=== PATIENT | female | born 1965 | race Caucasian/White ===

== ENCOUNTER 2018-01-17 22:13 | Inpatient (IN) | payer OTHER ==
[~2018-01-17] VITALS: Ht 165.1 cm; Wt 68.5 kg
--- NOTE | 2018-01-17 22:39 | ED AMS/SEIZURE/WEAK/DIZZY ---
History of Present Illness General Chief Complaint: Altered Mental Status Stated Complaint: BIBA FOR AMS, HIGH BP Source: patient, family, EMS Exam Limitations: clinical condition Vital Signs & Intake/Output Vital Signs & Intake/Output Vital Signs Date Time Temp Pulse Resp B/P B/P Pulse O2 O2 Flow FiO2 Mean Ox Delivery Rate 01/18 0132 100.6 86 18 164/70 98 Nasal 1.0L Cannula 01/18 0019 100.5 01/17 2319 95 18 180/68 97 Nasal 3.0L Cannula 01/17 2311 96 Nasal 3.0L Cannula 01/17 2310 99.4 01/17 2216 100.6 101 18 199/87 95 Room Air ED Intake and Output 01/18 0000 01/17 1200 Intake Total 1000 Output Total Balance 1000 Intake, IV 1000 Patient 155 lb Weight Weight Estimated Measurement Method Allergies Coded Allergies: No Known Allergies (01/17/18) Reconcile Medications Aspirin (Ecotrin*) 81 MG TABLET.DR 1 TAB PO DAILY HEART/BLOOD (Reported) Cephalexin 500 MG CAPSULE 1 CAP PO 4 TIMES/DAY ABX (Reported) Diltiazem HCl (Diltiazem 24HR ER) 180 MG CAP.ER.24H 2 CAP PO DAILY HEART/BP ( Reported) Furosemide (Lasix) 80 MG TABLET 1 TAB PO MONWEDFRISUN DIURETIC (Reported) Gabapentin (Neurontin) 100 MG CAPSULE 1 CAP PO BID NERVE PAIN (Reported) Hydralazine HCl 25 MG TABLET 1 TAB PO BID BP (Reported) Insulin Glulisine (Apidra Solostar) 100 UNIT/ML INSULN.PEN 70 UNITS SC DAILY DM (Reported) Losartan Potassium (Cozaar) 50 MG TABLET 1 TAB PO BID BP (Reported) Pantoprazole Sodium (Protonix) 40 MG TABLET.DR 1 TAB PO DAILY GI (Reported) Vit B Cmplx 3/FA/Vit C/Biotin (Rn X Ray-[place] Rx Tablet) 1 MG-60 MG-300 MCG TABLET 1 TAB PO DAILY SUPPLEMENT (Reported) Triage Nurses Notes Reviewed? yes Unable To Obtain Hx Due To: patient confusion Onset: Gradual Duration: day(s): (1-2), changing over time, continues in ED, getting worse Timing: single episode today Injury Environment: home Severity: moderate, severe No Modifying Factors: none LMP (ages 10-50): unknown : No Patient currently breastfeeds: No HPI: 52-year-old female past medical history of end-stage renal disease on dialysis, insulin-dependent diabetes, peripheral vascular disease, hypertension brought in by parents for evaluation of altered mental status. EMS reports that they were called to the patient's house earlier today for hyperglycemia. Patient refused transport. At that time she was awake and alert. They were called back later today for this current called and patient was found to be very altered. She was agitated and combative. She was medicated with 5 mg of IM Versed and is now sedated. EMS reports blood sugar readings greater than 500. He also reports that patient feels warm and smells of sugar. 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 Family states that patient had not been complaining of any pain today but did have multipel episodes of vomiting. no diarrhea ro abdominal pain. They state that she does not drink or use any drugs. She was dialyzed on . no fever or sick conatcts. (Lefty Roberts) Past History Travel History Traveled to [place] past 21 day No Medical History Any Pertinent Medical History? see below for history Cardiovascular: hypertension Renal: ESRD on HD Endocrine: diabetes Surgical History Surgical History: left bka Family History Hx Contributory? No (Lefty Roberts) Review of Systems Review of Systems Constitutional: Reports: fever. EENTM: Reports: no symptoms. Respiratory: Reports: no symptoms. Cardiovascular: Reports: no symptoms. GI: Reports: no symptoms. Genitourinary: Reports: no symptoms. Musculoskeletal: Reports: no symptoms. Skin: Reports: no symptoms. Neurological/Psychological: Reports: see HPI. Hematologic/Endocrine: Reports: no symptoms. Immunologic/Allergic: Reports: no symptoms. All Other Systems: Reviewed and Negative (Lefty Roberts) Physical Exam Physical Exam General Appearance: well developed/nourished, no apparent distress, sedated, lethargic, RESPONSIVE TO PAINFUL STIMULI Head: atraumatic, normal appearance Eyes: Bilateral: normal appearance, PERRL, EOMI. Ears, Nose, Throat: normal pharynx, normal ENT inspection, hearing grossly normal Neck: normal inspection, supple, full range of motion, no meningeal signs Respiratory: normal breath sounds, chest non-tender, no respiratory distress, lungs clear Cardiovascular: regular rate/rhythm, normal peripheral pulses Peripheral Pulses: 2+ radial (R), 2+ radial (L) Gastrointestinal: normal bowel sounds, soft, non-tender, no organomegaly Back: normal inspection, normal range of motion, no vertebral tenderness Extremities: PATIENT IS ABLE TO MOVE ALL EXTREMITIES EQUALLY. tHERE IS A LEFT [id number] AMPUTATION. sURGICAL SCAR IS CLEAN DRY AND INTACT WITHOUT ERYTHEMA OR DISCHARGE, DIALYSIS AXIS ON THE LEFT UPPER EXTREMITY WITH PALPABLE THRILL. nO ERYTHEMA Neurologic/Psych: no motor/sensory deficits, awake, pt is reponsive to painful stimuli only. , she is moving all extremities equally Skin: intact, normal color, warm/dry Lymphatic: no anterior cervical micheal Core Measures ACS in differential dx? No CVA/TIA Diagnosis No Sepsis Present: Yes Sepsis Focused Exam Completed? Yes (Yehuda SWAN,Lefty) Progress Differential Diagnosis: arrythmia, alcohol intoxication, anemia, benign positional vertigo, CVA/stroke, dehydration, drug intoxication, encephalitis, electrolyte imbalance, hypoglycemia, hypoxia, meningitis, migraine PAYNE, pneumonia , sepsis, subarachnoid Hem., UTI/pyelo, DKA, HHS, viral syndrome, viral gastroenteritis Plan of Care: Orders Procedure Date/time Status Nothing by Mouth 01/18 B Active ECHOCARDIOGRAM 01/18 0256 Active CEREBROSPINAL FLUID CULTURE 01/18 0254 Active CYTOLOGY SPECIMEN 01/18 0254 Active CSF TOTAL PROTEIN 01/18 0254 Active CEREBROSPINAL FL CELL CT 01/18 0254 Active CSF LDH 01/18 0254 Active CSF GLUCOSE 01/18 0254 Active FingerStick- Glucose 01/18 0228 Active VRE ACTIVE SURVIELLANCE 01/18 0227 Active ACTIVE SURVEILLANCE NARES 01/18 0219 Active ARTERIAL BLOOD GAS (GEN) 01/18 0214 Complete Add-on Test (ER Only) 01/18 0119 Active Pathway - chart 01/18 0108 Active House Staff 01/18 0108 Active Patient Data 01/18 0108 Active Code Status 01/18 0108 Active Patient Data 01/18 0042 Active BASIC ELECTROLYTES PLUS BUN&CR 01/18 0038 Active ED Holding Orders 01/18 0034 Active Admit to inpatient 01/18 0034 Active Vital Signs 01/18 0034 Active Code Status 01/18 0034 Complete VTE Mechanical Prophylaxis 01/18 UNK Active [place], Insertion/Removal/Asses 01/17 2245 Active RAPID VIRAL INFLUENZA A 01/17 2239 Complete Intake & Output 01/17 2234 Active PROTHROMBIN TIME 02/16 2230 Complete Straight Cath 01/17 2220 Active EKG 01/17 2220 Active MIXED VENOUS BLOOD GAS (GEN) 01/17 2219 Active BLOOD CULTURE 01/17 2219 Active URINE DRUG SCREEN FOR ER ONLY 01/17 2219 Complete URINALYSIS 01/17 2219 Complete TROPONIN LEVEL 01/17 2219 Complete SERUM OSMOLALITY 01/17 2219 Complete LACTIC ACID 01/17 2219 Complete ETHANOL 01/17 2219 Complete COMPREHENSIVE METABOLIC PANEL 01/17 2219 Complete CBC WITHOUT DIFFERENTIAL 01/17 2219 Complete ACETONE 01/17 2219 Complete FingerStick- Glucose 01/17 2217 Active Laboratory Tests 01/18/18 0250: CSF Glucose Pending, CSF LDH Pending, CSF Total Protein Pending 01/18/18 0250: CSF WBC Pending, CSF RBC Pending, CSF Comment Pending 01/18/18 0225: Sodium Pending, Potassium Pending, Chloride Pending, Carbon Dioxide Pending, Anion Gap Pending, BUN Pending, Creatinine Pending, BUN/Creatinine Ratio Pending 01/18/18 0220: pH 7.28 *L, pCO2 41, pO2 115 H, HCO3 18 L, ABG O2 Sat (Measured) 96.0, P-50 ( Temp Corrected) Y, Carboxyhemoglobin 0.8 L, O2 Concentration % 1 LPM, Temperature 100.6 H, O2 Delivery Method N/C, Phlebotomy Draw Site LEFT RADIAL 01/18/18 0119: Lactic Acid Cancelled 01/18/18 0108: PT Cancelled, INR Cancelled 01/17/18 2251: Urine Opiates Screen < 100.00, Methadone Screen < 40, Barbiturate Screen < 60, Ur Phencyclidine Scrn < 6.00, Amphetamines Screen < 100, U Benzodiazepines Scrn < 85, Urine Cocaine Screen < 50, Urine Cannabis Screen < 5.00, Urine Color YEL, Urine Clarity HAZY H, Urine pH 7.0, Ur Specific [place] 1.020, Urine Protein 100 H, Urine Ketones NEG, Urine Nitrite NEG, Urine Bilirubin NEG, Urine Urobilinogen 0.2, Ur Leukocyte Esterase NEG, Ur Microscopic SEDIMENT EXAMINED, Urine RBC RARE, Urine WBC RARE, Ur Epithelial Cells RARE, Urine Bacteria RARE H , Urine Hemoglobin TRACE-INTACT, Urine Glucose >=1000 H 01/17/18 2240: Bicarbonate Actual 19 L, Mixed VBG pH 7.25 L, Mixed VBG pCO2 44, Mixed VBG O2 Saturation 73 H, Carboxyhemoglobin 1.5 01/17/180: Anion Gap 19 H, Estimated GFR 5 L, BUN/Creatinine Ratio 7.3, Glucose 992 *H, Serum Osmolality 338 H, Lactic Acid 0.8, Calcium 8.9, Total Bilirubin 0.5, AST 11 L, ALT 24, Alkaline Phosphatase 121, Troponin I < 0.01, Total Protein 6.0 L , Albumin 3.8, Globulin 2.2, Albumin/Globulin Ratio 1.7, PT 11.1, INR 1.06, CBC w Diff NO MAN DIFF REQ, RBC 3.58 L, MCV 94.6, MCH 31.9 H, MCHC 33.7, RDW 14.6 H, MPV 8.1, Gran % 92.2 H, Lymphocytes % 6.1 L, Monocytes % 1.4 L, Eosinophils % 0, Basophils % 0.3, Absolute Granulocytes 7.0 H, Absolute Lymphocytes 0.5 L, Absolute Monocytes 0.1, Absolute Eosinophils 0, Absolute Basophils 0, Serum Alcohol < 10.0, Acetone Level POSITIVE AT 1:2 DIL Microbiology 01/18 0250 CENT N S: CSF Culture - RECD 01/18 0250 CENT N S: Gram Stain - RECD 01/18 0230 NASOPHARYN: Influenza Virus A & B Rapid Smear - COMP 01/18 022 GI: Surveillance Culture - ORD 01/18 021 UPPER RESP: Surveillance Culture - ORD 01/17 224 BLOOD: Blood Culture - RECD 01/17 2230 BLOOD: Blood Culture - RECD Patient seen and evaluated. On initial evaluation she is responsive to painful stimuli only. She is protecting her airway. Vital signs show a normal oxygen saturation on room air. She is slightly hypertensive 190s over 90s. She received Versed due to agitation/combativeness. Patient has a very high blood sugar reading greater than 500. He smells of sugar. She also has a low-grade temp. Rectal temp is 100.5. Patient was given a liter of normal saline and IV Tylenol. We'll check basic labs including VBG acetone serum osmolality. We'll get a chest x-ray CT scan of chest abdomen and pelvis as well as a head CT. Blood work shows a blood sugar in the 900s. Insulin drip started at 7/h. Patient will be started on broad-spectrum antibiotics vancomycin and Fortaz due to dialysis and hospitalization last month for below the knee amputation. No signs of access infection. Considered possibility of meningitis. She has no meningeal signs or rashes. Patient could have a viral gastroenteritis as she was vomiting multiple times today according to family. Her altered mental status could be the result of DKA/HHS. She only has a low-grade temp. CT scans do not show any acute findings. Patient will be admitted to the ICU for further evaluation and treatment. She'll require insulin drip, serial labs, every hour blood sugars, endocrinology, follow-up cultures, monitor vital signs. Case discussed with Dr. Tompkins she agrees Diagnostic Imaging: Viewed by Me: Radiology Read. Discussed w/RAD: Radiology Read. Radiology Impression: PATIENT: HELLEN BOWERS PRESENT AGE: 52 PATIENT ACCOUNT NO: [id number] : 64 LOCATION: ER ORDERING PHYSICIAN: Lefty SWAN SERVICE DATE: 01/17/18 EXAM TYPE: RAD - XRY-PORTABLE CHEST XRAY EXAMINATION: XR PORTABLE CHEST CLINICAL INFORMATION: Fever. Altered mental status. COMPARISON: None TECHNIQUE: Portable frontal view of the chest was obtained. 10:42 PM FINDINGS: There is mild increased central pulmonary vascularity. No focal consolidation. No overt pulmonary edema. No pleural effusion. Cardiac and mediastinal contour normal. IMPRESSION: Mild increased central pulmonary vascularity. No focal consolidation. DICTATED BY: Julio Cesar Huang MD DATE/TIME DICTATED:01/17/182331 HOISTING LABORER:HUNTER DATE/TIME TRANSCRIBED:01/17/182331 CONFIDENTIAL, DO NOT COPY WITHOUT APPROPRIATE AUTHORIZATION. <Electronically signed in Other Vendor System> SIGNED BY: Julio Cesar Huang MD 01/17/182335, PATIENT: HELLEN BOWERS PRESENT AGE: 52 PATIENT ACCOUNT NO: [id number] : 64 LOCATION: ER ORDERING PHYSICIAN: Lefty SWAN SERVICE DATE: 01/17/18 EXAM TYPE: CAT - CT HEAD WO IV CONTRAST EXAMINATION: CT HEAD WITHOUT CONTRAST CLINICAL INFORMATION: Altered mental status, combative COMPARISON: None TECHNIQUE: Contiguous axial imaging was performed from the skull base to vertex without intravenous administration of contrast. DLP: 625.25 mGy-cm FINDINGS: Assessment is partially limited in some regions due to patient motion artifact. There is no evidence of acute intracranial hemorrhage or territorial infarction. No abnormal mass effect or midline shift is seen. Fisher to white matter differentiation is well preserved. No extra-axial fluid collections are identified. The ventricles are normal in size. There is mild periventricular white matter hypoattenuation consistent with chronic small vessel ischemic disease. The osseous structures and soft tissues are normal. The mastoid air cells and visualized portions of the paranasal sinuses are well aerated. IMPRESSION: No acute intracranial pathology identified. DICTATED BY: Al Dai MD DATE/TIME DICTATED:01/18/1852 HOISTING LABORER:HUNTER DATE/TIME TRANSCRIBED:01/18/1852 CONFIDENTIAL, DO NOT COPY WITHOUT APPROPRIATE AUTHORIZATION. <Electronically signed in Other Vendor System> , PATIENT: HELLEN BOWERS PRESENT AGE: 52 PATIENT ACCOUNT NO: [id number] : 63 LOCATION: [facility] ORDERING PHYSICIAN: Lefty SWAN SERVICE DATE: 01/17/18 EXAM TYPE: CAT - CT ABD & PELVIS W /O IV CONTRAS; CT CHEST WO IV CONTRAST EXAM: NONCONTRAST CT OF THE CHEST; NONCONTRAST CT OF THE ABDOMEN AND PELVIS INDICATION: Combative, altered mental status, fever COMPARISON: None TECHNIQUE: No IV contrast was utilized. Multidetector helical imaging was performed through the chest, abdomen, and pelvis. Coronal and sagittal reformatted images were created at the technologist workstation. DLP: 611.13 mGy-cm FINDINGS: Chest: Assessment of the lungs is suboptimal due to respiratory motion artifact. No dense consolidation is seen. No pneumothorax. There is a questionable trace left pleural effusion. The visualized thyroid gland is unremarkable. No discrete mediastinal lymphadenopathy is seen, though assessment is suboptimal in the absence of intravenous contrast. There is mild to moderate cardiomegaly without significant pericardial effusion. The unenhanced aorta is grossly unremarkable. No axillary lymphadenopathy is present. Abdomen/Pelvis: Assessment of solid organs is suboptimal in the absence of intravenous contrast. The liver is homogeneous in attenuation without intrahepatic biliary ductal dilatation. The gallbladder is unremarkable. The spleen appears near the upper limits of normal in size. The unenhanced pancreas and adrenal glands appear grossly unremarkable. The unenhanced kidneys are unremarkable without hydronephrosis. No renal or ureteral calculi are present. There is symmetric nonspecific bilateral perinephric stranding. The urinary bladder is decompressed with a [place] catheter. The uterus and adnexa are grossly unremarkable though not well evaluated on this noncontrast exam. Trace pelvic free fluid is noted. No evidence of bowel obstruction. There is a moderate amount of stool throughout the colon as well as in the rectum. No appreciable bowel wall thickening. The appendix appears nondilated. No free air is present. There is calcification along the superior mesenteric artery. Vascular patency is not assessed in the absence of intravenous contrast. Borderline enlarged retroperitoneal lymph nodes are noted, of uncertain clinical significance. No additional discrete mesenteric lymphadenopathy is seen, though assessment for this is limited in the absence of intravenous contrast. There are scattered degenerative endplate changes in the spine. Nonspecific scattered foci in the proximal left femur reflect bone islands. IMPRESSION: 1. Questionable trace left pleural effusion. 2. Cardiomegaly. 3. Nonspecific bilateral perinephric stranding; this is of uncertain significance and could represent a chronic finding. No hydronephrosis or obstructing calculus. 4. Trace pelvic free fluid. 5. Borderline enlarged retroperitoneal lymph nodes, nonspecific. DICTATED BY: Al Dai MD DATE/ TIME DICTATED:01/18/1855 HOISTING LABORER:HUNTER DATE/TIME TRANSCRIBED: 01/18/1855 CONFIDENTIAL, DO NOT COPY WITHOUT APPROPRIATE AUTHORIZATION. Initial ED EKG: normal sinus rhythm, SINUS RHYTHM, FIRST-DEGREE av BLOCK, BORDERLINE r-WAVE PROGRESSION ANTERIORLY Rhythm Strip: normal sinus rhythm (Lefty Roberts) Departure Departure Disposition: STILL A PATIENT Condition: Stable Departure Forms: Customer Survey General Discharge Information Admission Note Spoke With: Saba Luong MD Documentation of Exam: Documentation of any treatments & extenuating circumstances including Concerns Regarding Discharge (functional status, medication knowledge or non-compliance, living conditions, etc.) that warrant an admission rather than observation: [IV antibiotics, IV insulin, insulin drip, serial labs, endocrinology consult, medication adjustment, monitor vital signs, telemetry monitoring, every hour blood sugars, dialysis] (Lefty Roberts) Departure Clinical Impression Primary Impression: Hyperglycemic hyperosmolar nonketotic coma Secondary Impressions: Sepsis Qualifiers: Sepsis type: sepsis due to unspecified organism Qualified Code: A41.9 - Sepsis, unspecified organism PA/ALL TERRAIN VEHICLE TECHNICIAN Co-Sign Statement Statement: ED Attending supervision documentation- [X] I saw and evaluated the patient. I have also reviewed all the pertinent lab results and diagnostic results. I agree with the findings and the plan of care as documented in the PA's/ALL TERRAIN VEHICLE TECHNICIAN's documentation. [X] I have reviewed the ED Record and agree with the PA's/ALL TERRAIN VEHICLE TECHNICIAN's documentation. [] Additions or exceptions (if any) to the PAs/ALL TERRAIN VEHICLE TECHNICIAN's note and plan are summarized below: [Patient seen and examined with Marilynn Blackman. Patient presents confused, altered, low-grade temp, blood sugar over 600. Hyperosmolar by labs. Patient started on insulin drip as well as fluids. No active source of infection found. LP performed, clear color fluid with normal opening pressure. Patient was medicated with IM Valium prior to arrival secondary to combative state.] (Leda GARNICA,Carol) ED Sepsis Exam Date of Focused Sepsis Exam: 01/18/18 Time of Focused Sepsis Exam: 0200 Sepsis Cardiac Exam: Regular Rate/Rhythm (96 bpm) Sepsis Resp Exam: CTA Sepsis Cap Refill Exam: <2 Sec Sepsis Peripheral Pulse Exam: Bounding Sepsis Peripheral Pulse Location: Radial Sepsis Skin Color Exam: Normal for Ethnicity Skin Temp/Moisture Exam: Warm/Dry (Lefty Roebrts) Procedures Additional Procedures Additional Procedures: lumbar puncture Progress: PATIENT STERILY PREPARED AND DRAPED IN LEFT LATERAL DECUBITUS POSITION. 5 ML LIDOCAINE USED FOR LOCAL ANESTHESIA. LP NEEDLE INSERTED INTO L4-L5 SPACE. OPENING PRESSURE 19. CLEAR, COLORLESS FLUID OBTAINED. PATIENT TOLERATED PROCEDURE WELL. (Carol Tompkins MD)
[2018-01-17] MEDS ORDERED: ASPIRIN EC81 M1 PO (22:53)
[2018-01-17 22:54] LABS: ABSOLUTE BASOPHIL COUNT 0 /CUMM (0.0-0.2); ABSOLUTE EOSINOPHIL COUNT 0 /CUMM (0.0-0.7); ABSOLUTE LYMPH COUNT 0.5 /CUMM (1.2-3.4); ABSOLUTE MONOCYTE COUNT 0.1 /CUMM (0.10-0.60); BASOPHIL % 0.3 % (0.0-2.0); EOSINOPHIL % 0 % (0-5); GRANULOCYTE % 92.2 % (42.2-75.2); HEMATOCRIT 33.8 % (37-47); MEAN CORPUSCULAR HGB 31.9 PG (27.0-31.0); MEAN CORPUSCULAR HGB CONC 33.7 G/DL (33.0-37.0); MEAN CORPUSCULAR VOLUME 94.6 FL (81.0-99.0); MEAN PLATELET VOLUME 8.1 FL (7.4-10.4); PLATELET COUNT 227 /CUMM (130-400); RBC DISTRIBUTION WIDTH 14.6 % (11.5-14.5); RED BLOOD CELL CT 3.58 /CUMM (4.20-5.40); WHITE BLOOD CELL COUNT 7.5 /CUMM (4.8-10.8)
[2018-01-17] MEDS ORDERED: TRESIBA FL100 UNIT/1 SC (22:54)
[2018-01-17] MEDS ORDERED: CEPHALEXIN500 M3 PO (22:55)
[2018-01-17] MEDS ORDERED: DILTIAZEM 24HR180 MG PO (22:59)
[2018-01-17] MEDS ORDERED: APIDRA SOL100 UNIT/1 SC (23:00)
[2018-01-17] MEDS ORDERED: HYDRALAZINE HCL50 M1 PO (23:00)
[2018-01-17] MEDS ORDERED: LASIX80 M1 PO (23:01)
[2018-01-17] MEDS ORDERED: NEURONTIN100 M1 PO (23:02)
[2018-01-17] MEDS ORDERED: PROTONIX40 M3 PO (23:02)
[2018-01-17] MEDS ORDERED: VP-VITE RX TAB1 EACH PO (23:02)
[2018-01-17] MEDS ORDERED: COZAAR50 M1 PO (23:03)
--- NOTE | 2018-01-17 23:36 | RADIOLOGY REPORT ---
EXAMINATION: XR PORTABLE CHEST CLINICAL INFORMATION: Fever. Altered mental status. COMPARISON: None TECHNIQUE: Portable frontal view of the chest was obtained. 10:42 PM FINDINGS: There is mild increased central pulmonary vascularity. No focal consolidation. No overt pulmonary edema. No pleural effusion. Cardiac and mediastinal contour normal. IMPRESSION: Mild increased central pulmonary vascularity. No focal consolidation.
--- NOTE | 2018-01-18 00:59 | CT SCAN REPORT ---
EXAMINATION: CT HEAD WITHOUT CONTRAST CLINICAL INFORMATION: Altered mental status, combative COMPARISON: None TECHNIQUE: Contiguous axial imaging was performed from the skull base to vertex without intravenous administration of contrast. DLP: 625.25 mGy-cm FINDINGS: Assessment is partially limited in some regions due to patient motion artifact. There is no evidence of acute intracranial hemorrhage or territorial infarction. No abnormal mass effect or midline shift is seen. Fisher to white matter differentiation is well preserved. No extra-axial fluid collections are identified. The ventricles are normal in size. There is mild periventricular white matter hypoattenuation consistent with chronic small vessel ischemic disease. The osseous structures and soft tissues are normal. The mastoid air cells and visualized portions of the paranasal sinuses are well aerated. IMPRESSION: No acute intracranial pathology identified.
--- NOTE | 2018-01-18 01:05 | History & Physical ---
Mely Garcia MD 01/18/18 0056: General Information and HPI MD Statement: I have seen and personally examined HELLEN BOWERS and documented this H&P. The patient is a 52 year old F who presented with a patient stated chief complaint of [altered mental status]. Source of Information: family Exam Limitations: confusion History of Present Illness: Patient is a 52-year-old female BIBA from home because of the hyperglycemia, followed by combative behavior. History is taken from the Mr. Garciaenrasymone over the phone and Dr. Tompkins. According to them patient was relatively all right a day ago. She had her dialysis on without any complication. Yesterday she went outside to his orthopedic doctor as she was acting differently, and having low-grade temperature, she was started on tablet cephalexin. She was told to go to the hospital for high blood sugar but she refused for it. The next day she become very combative so family called EMS for further management. The EMS checked her blood pressure/sugar which was very high range of 600. She was very combative and was continuously refusing to go to the hospital. But because she become lethargic so she brought to the hospital. During that transport she was given, Versed. At the time of ED arrival she was drowsy, not responsive. Of note she had left lower extremity amputation 2-3 weeks ago without any complication. She is undergoing hemodialysis Saturday//Saturday since last 3 years. She is having fistula on her left which is functioning well. Allergies/Medications Allergies: Coded Allergies: No Known Allergies (01/17/18) Home Med list Aspirin (Ecotrin*) 81 MG TABLET.DR 1 TAB PO DAILY HEART/BLOOD (Reported) Cephalexin 500 MG CAPSULE 1 CAP PO 4 TIMES/DAY ABX (Reported) Diltiazem HCl (Diltiazem 24HR ER) 180 MG CAP.ER.24H 2 CAP PO DAILY HEART/BP ( Reported) Furosemide (Lasix) 80 MG TABLET 1 TAB PO MONWEDFRISUN DIURETIC (Reported) Gabapentin (Neurontin) 100 MG CAPSULE 1 CAP PO BID NERVE PAIN (Reported) Hydralazine HCl 25 MG TABLET 1 TAB PO BID BP (Reported) Insulin Glulisine (Apidra Solostar) 100 UNIT/ML INSULN.PEN 70 UNITS SC DAILY DM (Reported) Losartan Potassium (Cozaar) 50 MG TABLET 1 TAB PO BID BP (Reported) Pantoprazole Sodium (Protonix) 40 MG TABLET.DR 1 TAB PO DAILY GI (Reported) Vit B Cmplx 3/FA/Vit C/Biotin ([employer] [facility] Tablet) 1 MG-60 MG-300 MCG TABLET 1 TAB PO DAILY SUPPLEMENT (Reported) Past History Travel History Traveled to [place] past 21 day No Medical History Neurological: NONE EENT: NONE Cardiovascular: hypertension, hyperlipidemia Respiratory: NONE Gastrointestinal: NONE Hepatic: NONE Renal: RENAL FAILURE DIALYSIS Musculoskeletal: NONE Psychiatric: NONE Endocrine: diabetes Surgical History Surgical History: none (LLE amputation), unobtainable Review of Systems Review of Systems Constitutional: Denies: no symptoms. Exam & Diagnostic Data Last 24 Hrs of Vital Signs/I&O Vital Signs Date Time Temp Pulse Resp B/P B/P Pulse O2 O2 Flow FiO2 Mean Ox Delivery Rate 01/18 0400 95 Room Air 01/18 0400 100.0 85 13 170/60 95 Room Air 01/18 0331 100.0 82 18 158/72 98 Nasal 1.0L Cannula 01/18 0132 100.6 86 18 164/70 98 Nasal 1.0L Cannula 01/18 0019 100.5 01/17 2319 95 18 180/68 97 Nasal 3.0L Cannula 01/17 2311 96 Nasal 3.0L Cannula 01/17 2310 99.4 01/17 2216 100.6 101 18 199/87 95 Room Air Intake & Output 01/18 0800 01/18 0000 01/17 1600 Intake Total 1000 Output Total Balance 1000 Intake, IV 1000 Patient 70 kg 70.307 kg Weight Weight Bed scale Estimated Measurement Method Physical Exam General Appearance somnolent, not responding to verbal command, moving all her limbs Skin No Rashes, No Breakdown, No Significant Lesion HEENT Atraumatic, PERRLA, EOMI Neck No JVD, neck stiffness was present Cardiovascular Normal S1, Normal S2 Lungs Clear to Auscultation, Normal Air Movement Abdomen Soft, No Tenderness Neurological somnolent, moving all limbs, Extremities No Clubbing, No Cyanosis, No Edema, Normal Pulses, left leg was amputated, Vascular Normal Pulses, Pulses Symmetrical Last 24 Hrs of Labs/Pedro: Laboratory Tests 01/18/18 0250: CSF Glucose 324 H, CSF LDH 119, CSF Total Protein 36 01/18/18 0250: CSF WBC 0, CSF RBC 0, CSF Comment 01/18/18 0225: Anion Gap 17 H, Estimated GFR 5 L, BUN/Creatinine Ratio 7.4 01/18/18 0220: pH 7.28 *L, pCO2 41, pO2 115 H, HCO3 18 L, ABG O2 Sat (Measured) 96.0, P-50 ( Temp Corrected) Y, Carboxyhemoglobin 0.8 L, O2 Concentration % 1 LPM, Temperature 100.6 H, O2 Delivery Method N/C, Phlebotomy Draw Site LEFT RADIAL 01/18/18 0119: Lactic Acid Cancelled 01/18/18 0108: PT Cancelled, INR Cancelled 01/17/18 2251: Urine Opiates Screen < 100.00, Methadone Screen < 40, Barbiturate Screen < 60, Ur Phencyclidine Scrn < 6.00, Amphetamines Screen < 100, U Benzodiazepines Scrn < 85, Urine Cocaine Screen < 50, Urine Cannabis Screen < 5.00, Urine Color YEL, Urine Clarity HAZY H, Urine pH 7.0, Ur Specific [place] 1.020, Urine Protein 100 H, Urine Ketones NEG, Urine Nitrite NEG, Urine Bilirubin NEG, Urine Urobilinogen 0.2, Ur Leukocyte Esterase NEG, Ur Microscopic SEDIMENT EXAMINED, Urine RBC RARE, Urine WBC RARE, Ur Epithelial Cells RARE, Urine Bacteria RARE H , Urine Hemoglobin TRACE-INTACT, Urine Glucose >=1000 H 01/17/18 2240: Bicarbonate Actual 19 L, Mixed VBG pH 7.25 L, Mixed VBG pCO2 44, Mixed VBG O2 Saturation 73 H, Carboxyhemoglobin 1.5 01/17/18 2230: Anion Gap 19 H, Estimated GFR 5 L, BUN/Creatinine Ratio 7.3, Glucose 992 *H, Serum Osmolality 338 H, Lactic Acid 0.8, Calcium 8.9, Total Bilirubin 0.5, AST 11 L, ALT 24, Alkaline Phosphatase 121, Troponin I < 0.01, Total Protein 6.0 L , Albumin 3.8, Globulin 2.2, Albumin/Globulin Ratio 1.7, PT 11.1, INR 1.06, CBC w Diff NO MAN DIFF REQ, RBC 3.58 L, MCV 94.6, MCH 31.9 H, MCHC 33.7, RDW 14.6 H, MPV 8.1, Gran % 92.2 H, Lymphocytes % 6.1 L, Monocytes % 1.4 L, Eosinophils % 0, Basophils % 0.3, Absolute Granulocytes 7.0 H, Absolute Lymphocytes 0.5 L, Absolute Monocytes 0.1, Absolute Eosinophils 0, Absolute Basophils 0, Serum Alcohol < 10.0, Acetone Level POSITIVE AT 1:2 DIL Microbiology 01/18 410 UPPER RESP: Surveillance Culture - RECD 01/18 410 GI: Surveillance Culture - RECD 01/18 250 CENT N S: CSF Culture - RES 01/18 250 CENT N S: Gram Stain - RES 01/18 023 NASOPHARYN: Influenza Virus A & B Rapid Smear - COMP 01/17 2245 BLOOD: Blood Culture - RECD 01/17 2230 BLOOD: Blood Culture - RECD Diagnostic Data EKG Results Heart rate 97, VA interval 220, QTc 432 CXR Results Mild increased central pulmonary vascularity. No focal consolidation Assessment/Plan Assessment: Patient is a 52-year-old female BIBA from home because of the hyperglycemia, followed by combative behavior. ED course -vital signs at the time of admission temperature 100.6, pulse 101, respiratory rate 18, blood pressure 199/87, SPO2 95% on room air. Blood workup showed hemoglobin 11.4, hematocrit 33.8, platelet count 227, serum sodium 122, potassium 5.5, chloride 87, carbon dioxide 17, anion gap 19, BUN 59, creatinine 0.5, GFR 5, glucose 992, serum osmolality 338, lactic acid 0.8, calcium 8.9, total bilirubin 0.5, AST 11, ALT 24, alkaline phosphatase 191, troponin I less than 0.01, total protein 6.0, albumin 3.8, globulin 2.2, U tox did not show any evidence of alcohol/cocaine/benzodiazepines, urinalysis shows high glucose more than thousand. Blood cultures and urine cultures were sent.[place] catheter was placed with 200 cc of the urine output. Patient was started on insulin drip. CXR -Mild increased central pulmonary vascularity. No focal consolidation. CT head -No acute intracranial pathology identified. CT chest/Abd/Pelvis - Trace left pleural effusion,cardiomegaly, Nonspecific bilateral perinephric stranding, Trace pelvic free fluid.Borderline enlarged retroperitoneal lymph nodes, nonspecific. Assessment and plan - Patient is a known case of diabetes, chronic kidney disease on hemodialysis presented with fever, combative behavior, altered mental status, found to be in hypoglycemia and acidosis. On examination she was not responding to any verbal command,pupils were round and reactive, heart, lungs, abdomen, extremities were normal. Left lower leg was amputated, with healthy wound. CT scan was negative for any intracranial pathology though chest x-ray showed mild increased central pulmonary vascular congestion.It seems she was in septicemia, of unknown origin leading to hyperglycemia or aggravated by hyperglycemia. Discussed with Dr. carlson over the phone advice for insulin drip and keep blood sugar between 140- 180. Discuss[address] with Dr. robledo, according to him patient does not need urgent dialysis so he will come tommorow. lumber puncture was done which showed glucose 324,LDH 119, and total protein -36. Plan - Hyperosmotic hyperglycemia -blood sugar 992 -with High anion gap metabolic acidosis - high anion gap -19, pH 7.25, probably precipitated by infection or non compliance * We will start patient on the insulin drip. * As the patient is having chronic kidney disease, We will restrict IV fluids. * Blood sugar measurement every 1 hourly * BEP measurement every 4 hourly * Will start patient on IV ceftriaxone * Will follow the CSF analysis report, blood cultures and urine cultures Acute on chronic kidney disease (BUN/creatinine 59/8.1) with Hyponatremia and Hyperkalemia * Probably secondary to volume overload and CKD, * Patient undergoes regular dialysis on Saturday//Saturday. * She is due for dialysis tomorrow * Discussed with Dr. Atkins, emergent dialysis is not required. Code status - FC - should be confirmed from daughter/POA DVT prophylaxis - ALPS Diet - NPO As Ranked By This Provider Problem List: 1. Hyperglycemic hyperosmolar nonketotic coma 2. Sepsis Qualifiers Sepsis type: sepsis due to unspecified organism Qualified Code: A41.9 - Sepsis, unspecified organism Core Measures/Misc (08/18) Acute Coronary Syndrome ACS Diagnosis: No Congestive Heart Failure Congestive Heart Failure Diagnosis No Cerebrovascular Accident CVA/TIA Diagnosis: No VTE (View Protocol) VTE Risk Factors Age>40 No Mechanical VTE Prophylaxis d/t N/A MechProphylax Ordered No VTE Pharm Prophylaxis d/t NA PharmProphylax ordered Sepsis (View protocol) Sepsis Present: Yes Saba Luong 01/18/18 0441: Attending MD Review Statement Attending Statement Attending MD Statement: examined this patient, discuss w/resident/PA/ELECTRIC MOTOR TESTER, agreed w/resident/PA/ELECTRIC MOTOR TESTER, reviewed EMR data (avail), reviewed images, amended to note Attending Assessment/Plan: CC: JACQUELIN PMH: DM, HTN, neuropathy, CK-MB on hemodialysis Patient was brought in ER through EMS for elevated blood sugar. According to crop and soil scientist they received a call around 1404 hyperglycemia. Patient refused to come to hospital at that time. Later they received a call again that patient was more altered and blood sugar was very high. When EMS went on-site patient was very combative and was not following any verbal instructions, patient was given 5 mg of Versed IM. Patient responds to calling her name but does not maintain a steady case and conversation. History is obtained from patient's Ex-. According to him patient underwent left below knee amputation approximately 2-3 weeks back at him while [facility]. She followed up with orthopedic yesterday where she appeared to confused to them so she was started on oral antibiotics. Patient's ex- is not clear if she had stump infection or any other infection. Patient was also having nausea and vomiting yesterday. Today her blood sugar was very high but refused to go to hospital as mentioned above. She had low-grade temp yesterday and today. Given patient's mental status history is limited. Vitals: T max 100.6, pulse 101, RR 18, blood pressure 199/87 on arrival, saturating 95% on 1 L On exam: Drowsy but Responds to verbal stimuli, protecting airway. no acute distress, neck supple, JVD normal, no lymphadenopathy, mucosa moist, neurological exam is limited, pupils equal round reactive bilaterally, no dependent edema, no obvious skin rashes or inflammation, left BKA stump site uninfected, no collection, well healed CVS: S1-S2, RRR. RS: Clear to auscultate bilaterally. Abdomen: Soft, NT, ND, bowel sounds present. CT head:No acute intracranial pathology identified. CT abdomen and pelvis and chest without IV contrast: 1. Questionable trace left pleural effusion. 2. Cardiomegaly. 3. Nonspecific bilateral perinephric stranding; this is of uncertain significance and could represent a chronic finding. No hydronephrosis or obstructing calculus. 4. Trace pelvic free fluid. 5. Borderline enlarged retroperitoneal lymph nodes, nonspecific. Assessment and plan 52 year old female with past medical history significant for insulin-dependent diabetes, HTN, CK D currently on hemodialysis and recent left foot amputation presented in ER for altered mental status. Patient was initially very combative and was not ready to come to ER and EMS was called according to ER note and patient's ex- so patient was given 5 mg of intramuscular Versed. In ER patient wakes up on calling her name but does not follow instructions, does not not carry meaningful conversation or eye contact. Rectal temperature 100.6 and patient had mild tachycardia with elevated blood pressure. Was Neck is supple, no obvious skin rashes or inflammation is identified, abdomen was soft nontender even with deep palpation, auscultation clear bilaterally lung banegas. On labs patient does not have significant leukocytosis but has left shift. She had metabolic acidosis with blood sugar of 992 and anion gap of 19 with sodium of 122 and serum osmolality of 338. Acetone was positive 1:2 dilution. UA is unremarkable except elevated glucose and U tox is unremarkable. Patient's metabolic encephalopathy appears secondary to hyperglycemic hyperosmolar state, as U tox is negative, PCO2 is normal. Some other drug overdoses which are not detectable on U tox couldn't be possible. Mild DKA could not be excluded. At the same time, her end-stage renal disease may be contribution to acidosis. Because of a FERN PICKER or DKA could be noncompliance but infections should be ruled out. Given her end-stage renal disease, we will be judicious with IV fluids. Patient received a liter bolus in ER. + Metabolic encephalopathy + HHS + Metabolic acidosis + Pseudohyponatremia secondary to hyperglycemia + Hx of HTN, neuropathy, CK-MB on hemodialysis - Admit to ICU - Continue insulin drip, titrate according to blood sugar - Accu-Cheks every hourly - If blood sugar is detectable on Accu-Cheks and then BMP every 4 hourly, if Accu-Cheks are more than 500 then BMP Q hourly - Start potassium drip 20 mEq with normal saline once potassium is less than 5 and if patient still on insulin drip - Change normal saline to D5 if blood sugar drops less than 250, at that time try to discontinue the insulin drip if anion gap is closed - Endocrine consult - Nephrology consult for hemodialysis - Critical care consult - Blood culture, urine culture - Continue IV ceftriaxone or cefazolin for now for possible stump infection versus UTI - Follow up CSF analysis, Add HSV PCR from CSF if not done already - Confirmed all her home medications in morning and restart - At this point patient may not be competent to make decisions and should not leave AMA if becomes aggressive work combative, may try Ativan or haloperidol - Serial troponin ECGs - DVT prophylaxis - Avoid excessive sedation TTS 30 min
--- NOTE | 2018-01-18 01:12 | CT SCAN REPORT ---
EXAM: NONCONTRAST CT OF THE CHEST; NONCONTRAST CT OF THE ABDOMEN AND PELVIS INDICATION: Combative, altered mental status, fever COMPARISON: None TECHNIQUE: No IV contrast was utilized. Multidetector helical imaging was performed through the chest, abdomen, and pelvis. Coronal and sagittal reformatted images were created at the technologist workstation. DLP: 611.13 mGy-cm FINDINGS: Chest: Assessment of the lungs is suboptimal due to respiratory motion artifact. No dense consolidation is seen. No pneumothorax. There is a questionable trace left pleural effusion. The visualized thyroid gland is unremarkable. No discrete mediastinal lymphadenopathy is seen, though assessment is suboptimal in the absence of intravenous contrast. There is mild to moderate cardiomegaly without significant pericardial effusion. The unenhanced aorta is grossly unremarkable. No axillary lymphadenopathy is present. Abdomen/Pelvis: Assessment of solid organs is suboptimal in the absence of intravenous contrast. The liver is homogeneous in attenuation without intrahepatic biliary ductal dilatation. The gallbladder is unremarkable. The spleen appears near the upper limits of normal in size. The unenhanced pancreas and adrenal glands appear grossly unremarkable. The unenhanced kidneys are unremarkable without hydronephrosis. No renal or ureteral calculi are present. There is symmetric nonspecific bilateral perinephric stranding. The urinary bladder is decompressed with a [place] catheter. The uterus and adnexa are grossly unremarkable though not well evaluated on this noncontrast exam. Trace pelvic free fluid is noted. No evidence of bowel obstruction. There is a moderate amount of stool throughout the colon as well as in the rectum. No appreciable bowel wall thickening. The appendix appears nondilated. No free air is present. There is calcification along the superior mesenteric artery. Vascular patency is not assessed in the absence of intravenous contrast. Borderline enlarged retroperitoneal lymph nodes are noted, of uncertain clinical significance. No additional discrete mesenteric lymphadenopathy is seen, though assessment for this is limited in the absence of intravenous contrast. There are scattered degenerative endplate changes in the spine. Nonspecific scattered foci in the proximal left femur reflect bone islands. IMPRESSION: 1. Questionable trace left pleural effusion. 2. Cardiomegaly. 3. Nonspecific bilateral perinephric stranding; this is of uncertain significance and could represent a chronic finding. No hydronephrosis or obstructing calculus. 4. Trace pelvic free fluid. 5. Borderline enlarged retroperitoneal lymph nodes, nonspecific.
[2018-01-18 01:37] LABS: PT 11.1 SEC (9.4-12.5)
[2018-01-18 04:00] VITALS: BP 170/60
--- NOTE | 2018-01-18 04:42 | Admission Certification ---
Admission Certification Certification Statement - As attending physician, I certify that at the time of - admission, based on clinical presentation, severity of - symptoms, need for further diagnostic testing and - therapeutic interventions, and risk of adverse outcomes - without in-hospital treatment, in my clinical assessment, - this patient requires an acute hospital stay for a minimum - of two nights or longer. I have also considered psychsocial - factors such as support system, advanced age, financial - issues, cognitive issues, and failed out-patient treatments, - past re-admission history, safety of patient, and lack of - compliance as applicable. Specific rationale supporting this admission is: HHS
[2018-01-18 08:00] VITALS: BP 162/72
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
--- NOTE | 2018-01-18 09:13 | Cons- Endocrinology ---
General Information and HPI Consulting Request Date of Consult: 01/18/18 Requested By: medical team Reason for Consult: Uncontrolled diabetes Source of Information: old records Exam Limitations: unable to give history History of Present Illness: This 52-year-old woman was brought in by ambulance to the emergency room last night with uncontrolled diabetes. I cannot obtain a history from her at this time because she is very combative. However she was on insulin at home. She also has chronic kidney disease and is on dialysis. Her blood sugar when she came to the ER was 991 and her effective osmolality was 305. Apparently the patient was combative in the field and received 5 mg of Versed before coming to the ER. Her labs when she came in showed a glucose of 992 BUN 59 creatinine 8.1. Sodium was 122, potassium 5.5, chloride 87, and CO2 17. Anion gap was 19 and acetone was positive at 1-2 dilution. Lactic acid was normal. During the night she became on responsive and when she did wake up later in the night she was combative again. Her usual day of dialysis is Saturday and renal has been called and she will be dialyzed in the hospital. The patient is on an insulin drip and her sugar has been coming down. She has not allowed further blood draws. Allergies/Medications Allergies: Coded Allergies: No Known Allergies (01/17/18) Home Med List: Aspirin (Ecotrin*) 81 MG TABLET.DR 1 TAB PO DAILY HEART/BLOOD (Reported) Cephalexin 500 MG CAPSULE 1 CAP PO 4 TIMES/DAY ABX (Reported) Diltiazem HCl (Diltiazem 24HR ER) 180 MG CAP.ER.24H 2 CAP PO DAILY HEART/BP ( Reported) Furosemide (Lasix) 80 MG TABLET 1 TAB PO MONWEDFRISUN DIURETIC (Reported) Gabapentin (Neurontin) 100 MG CAPSULE 1 CAP PO BID NERVE PAIN (Reported) Hydralazine HCl 25 MG TABLET 1 TAB PO BID BP (Reported) Insulin Degludec (Tresiba Flextouch U-100) 100 UNIT/ML (3 ML) INSULN.PEN 22 UNITS SC DAILY DM (Reported) Insulin Glulisine (Apidra Solostar) 100 UNIT/ML INSULN.PEN 70 UNITS SC DAILY DM (Reported) Losartan Potassium (Cozaar) 50 MG TABLET 1 TAB PO BID BP (Reported) Pantoprazole Sodium (Protonix) 40 MG TABLET. 1 TAB PO DAILY GI (Reported) Vit B Cmplx 3/FA/Vit C/Biotin (Customs Compliance Analyst-[employer] Rx Tablet) 1 MG-60 MG-300 MCG TABLET 1 TAB PO DAILY SUPPLEMENT (Reported) Review of Systems Comments Cannot obtain because combative Past History Travel History Traveled to [place] past 21 day No Medical History Neurological: NONE EENT: NONE Cardiovascular: hypertension Respiratory: NONE Gastrointestinal: NONE Hepatic: NONE Renal: ESRD on HD Musculoskeletal: NONE Psychiatric: NONE Endocrine: diabetes Surgical History Surgical History: unobtainable, 1 (LLE amputation) Psychosocial History Where Do You Live? Home Smoking Status: Never Smoked Exam & Diagnostic Data Last 24 Hrs of Vital Signs/I&O Vital Signs Date Time Temp Pulse Resp B/P B/P Pulse O2 O2 Flow FiO2 Mean Ox Delivery Rate 01/18 0400 95 Room Air 01/18 0400 100.0 85 13 170/60 95 Room Air 01/18 0331 100.0 82 18 158/72 98 Nasal 1.0L Cannula 01/18 0132 100.6 86 18 164/70 98 Nasal 1.0L Cannula 01/18 0019 100.5 01/17 2319 95 18 180/68 97 Nasal 3.0L Cannula 01/17 2311 96 Nasal 3.0L Cannula 01/17 2310 99.4 01/17 2216 100.6 101 18 199/87 95 Room Air Intake & Output 01/18 1600 01/18 0800 01/18 0000 Intake Total 12 1000 Output Total 500 Balance -488 1000 Intake, IV 12 1000 Intake, Oral 0 Number 0 Bowel Movements Output, Urine 500 Patient 154 lb 155 lb Weight Weight Bed scale Estimated Measurement Method Physical Exam General Appearance: well developed/nourished Head: normal appearance Neck: normal inspection Cardiovascular: regular rate/rhythm Gastrointestinal: normal bowel sounds, soft Extremities: left BKA Labs/Pedro Results: Laboratory Tests 01/18 01/18 01/18 01/18 01/18 0250 0250 0225 0220 0119 Blood Gas pH (7.35 - 7.45 PH) 7.28 *L pCO2 (35 - 45 TORR) 41 pO2 (80 - 100 TORR) 115 H HCO3 (21 - 28 MEQ/L) 18 L ABG O2 Sat (Measured) (>96.0 %) 96.0 P-50 (Temp Corrected) Y Carboxyhemoglobin (1.5 - 5.0 %) 0.8 L O2 Concentration % 1 LPM Temperature (97.0 - 100.0 FARH) 100.6 H O2 Delivery Method N/C Chemistry Sodium (137 - 145 mmol/L) 127 L Potassium (3.5 - 5.1 mmol/L) 4.9 Chloride (98 - 107 mmol/L) 93 L Carbon Dioxide (22 - 30 mmol/L) 17 L Anion Gap (5 - 16) 17 H BUN (7 - 17 mg/dL) 60 H Creatinine (0.5 - 1.0 mg/dL) 8.1 *H Estimated GFR (>60 ml/min) 5 L BUN/Creatinine Ratio (7 - 25 %) 7.4 Lactic Acid Cancelled Miscellaneous Ref Lab Test Result Pending Phlebotomy Draw Site LEFT RADIAL Other Body Source CSF WBC (0 - 5 /CUMM) 0 CSF RBC (-0 /CUMM) 0 CSF Comment CSF Glucose (40 - 70 mg/dL) 324 H CSF LDH (U/L) 119 CSF Total Protein (12 - 60 mg/dL) 36 01/18 01/17 01/17 0108 2251 2240 Blood Gas Bicarbonate Actual (22 - 26 MEQ/L) 19 L Mixed VBG pH (7.31 - 7.41 PH) 7.25 L Mixed VBG pCO2 (41 - 51 TORR) 44 Mixed VBG O2 Saturation (35 - 45 TORR) 73 H Carboxyhemoglobin (1.5 - 5.0 %) 1.5 Coagulation PT Cancelled INR Cancelled Toxicology Urine Opiates Screen (>2000 NG/ML) < 100.00 Methadone Screen (>300 NG/ML) < 40 Barbiturate Screen (>200 NG/ML) < 60 Ur Phencyclidine Scrn (>25 NG/ML) < 6.00 Amphetamines Screen (>1000 NG/ML) < 100 U Benzodiazepines Scrn (>200 NG/ML) < 85 Urine Cocaine Screen (>300 NG/ML) < 50 Urine Cannabis Screen (>50 NG/ML) < 5.00 Urines Urine Color (YEL,AMB,STR) YEL Urine Clarity (CLEAR) HAZY H Urine pH (5.0 - 8.0) 7.0 Ur Specific Loyal (1.001 - 1.035) 1.020 Urine Protein (NEG,<30 MG/DL) 100 H Urine Ketones (NEG) NEG Urine Nitrite (NEG) NEG Urine Bilirubin (NEG) NEG Urine Urobilinogen (0.1 - 1.0 EU/dl) 0.2 Ur Leukocyte Esterase (NEG) NEG Ur Microscopic SEDIMENT EXAMINED Urine RBC (0 - 5 /HPF) RARE Urine WBC (0 - 2 /HPF) RARE Ur Epithelial Cells (NONE,FEW) RARE Urine Bacteria (NEG/NONE) RARE H Urine Hemoglobin (NEG) TRACE-INTACT Urine Glucose (N MG/DL) >=1000 H 01/170 Chemistry Sodium (137 - 145 mmol/L) 122 L Potassium (3.5 - 5.1 mmol/L) 5.5 H Chloride (98 - 107 mmol/L) 87 L Carbon Dioxide (22 - 30 mmol/L) 17 L Anion Gap (5 - 16) 19 H BUN (7 - 17 mg/dL) 59 H Creatinine (0.5 - 1.0 mg/dL) 8.1 *H Estimated GFR (>60 ml/min) 5 L BUN/Creatinine Ratio (7 - 25 %) 7.3 Glucose (65 - 99 mg/dL) 992 *H Serum Osmolality (285 - 295 MOSM/KG) 338 H Lactic Acid (0.7 - 2.1 mmol/L) 0.8 Calcium (8.4 - 10.2 mg/dL) 8.9 Total Bilirubin (0.2 - 1.3 mg/dL) 0.5 AST (14 - 36 U/L) 11 L ALT (9 - 52 U/L) 24 Alkaline Phosphatase (<127 U/L) 121 Troponin I (< 0.11 ng/ml) < 0.01 Total Protein (6.3 - 8.2 g/dL) 6.0 L Albumin (3.5 - 5.0 g/dL) 3.8 Globulin (1.9 - 4.2 gm/dL) 2.2 Albumin/Globulin Ratio (1.1 - 2.2 %) 1.7 Coagulation PT (9.4 - 12.5 SEC) 11.1 INR (0.90 - 1.19) 1.06 Hematology CBC w Diff NO MAN DIFF REQ WBC (4.8 - 10.8 /CUMM) 7.5 RBC (4.20 - 5.40 /CUMM) 3.58 L Hgb (12.0 - 16.0 G/DL) 11.4 L Hct (37 - 47 %) 33.8 L MCV (81.0 - 99.0 FL) 94.6 MCH (27.0 - 31.0 PG) 31.9 H MCHC (33.0 - 37.0 G/DL) 33.7 RDW (11.5 - 14.5 %) 14.6 H Plt Count (130 - 400 /CUMM) 227 MPV (7.4 - 10.4 FL) 8.1 Gran % (42.2 - 75.2 %) 92.2 H Lymphocytes % (20.5 - 51.1 %) 6.1 L Monocytes % (1.7 - 9.3 %) 1.4 L Eosinophils % (0 - 5 %) 0 Basophils % (0.0 - 2.0 %) 0.3 Absolute Granulocytes (1.4 - 6.5 /CUMM) 7.0 H Absolute Lymphocytes (1.2 - 3.4 /CUMM) 0.5 L Absolute Monocytes (0.10 - 0.60 /CUMM) 0.1 Absolute Eosinophils (0.0 - 0.7 /CUMM) 0 Absolute Basophils (0.0 - 0.2 /CUMM) 0 Toxicology Serum Alcohol (<10 MG/DL) < 10.0 Acetone Level (NEGATIVE) POSITIVE AT 1:2 DIL Assessment/Plan Assessment/Plan This 54-year-old woman with a known history of diabetes and end-stage renal disease presents with a hyperosmolar state. She has been treated with an insulin drip. I spoke with house staff last night and because her affective osmolality was not high enough to explain her coma and other causes needed to be sought. The patient did receive Versed 5 mg in the field which could have been responsible for her excessive sedation. The patient also had an LP last night which did not show evidence of infection. She also had a CT scan of her head which showed nothing acute. The patient was treated with 1 L of normal saline by the ER physician and because she was febrile she was covered with antibiotics. This morning she became combative again and refused medical treatment. Her recent fingerstick blood sugar is 112 and at this time I would suggest reduce the insulin drip to 1 U/h. In one half hour we can recheck the patient's fingerstick blood sugar. Renal is to see the patient and dialysis will need to be done today. Consult Acknowledgment - Thank you for your consult request.
--- NOTE | 2018-01-18 10:28 | Cons- Psychiatry ---
Psychiatric Consult Date of Consult: 01/18/18 Reason for Consult: "extremely agitated and combative" History of Present Illness: Per H&P, BIBA from home because of the hyperglycemia, followed by combative behavior. History is taken from the Mr. Ozuna over the phone and Dr. Tompkins. According to them patient was relatively all right a day ago. She had her dialysis on without any complication. Yesterday she went outside to his orthopedic doctor as she was acting differently, and having low-grade temperature, she was started on tablet cephalexin. She was told to go to the hospital for high blood sugar but she refused for it. The next day she become very combative so family called EMS for further management. The EMS checked her blood pressure/sugar which was very high range of 600. She was very combative and was continuously refusing to go to the hospital. But because she become lethargic so she brought to the hospital. During that transport she was given, Versed. At the time of ED arrival she was drowsy, not responsive.Of note she had left lower extremity amputation 2-3 weeks ago without any complication. She is undergoing hemodialysis Saturday//Saturday since last 3 years. She is having fistula on her left which is functioning well. Per RN this morning, pt ws very agitated. She kept repeating that she needed HD (at her outpatient center). When staff tried to communicate that she was too sick at this time and was in the hospital, pt was not redirectable. She does seems aware in a sense of what happening, asking "not to be tied down" when they were restraining her. She was given ativan and haldol was some response. On exam today, pt sleeping soundly. Attempted to awaken her several times. Will attempt again later. Allergies: Coded Allergies: No Known Allergies (01/17/18) Current Medications: Current Medications Sig/Marcellus Start time Last Medication Dose Route Stop Time Status Admin Acetaminophen 0 .STK-MED ONE 01/17 2240 DC IV Acetaminophen 1,000 MG ONCE ONE 01/17 2230 DC 01/17 N/A 1 UNIT IV 01/17 2244 223 Ceftazidime 0 .STK-MED ONE 01/17 2301 DC .ROUTE Ceftazidime 1,000 MG ONCE ONE 01/175 DC 01/17 IV 01/17 2246 2305 Haloperidol 1 MG ONCE ONE 01/18 0915 DC 01/18 IM 01/18 0916 0915 Insulin Human Regular 100 UNIT ONCE ONE 01/18 0430 AC 01/18 Sodium Chloride 100 ML IV 01/18 2109 044 Insulin Human Regular 100 UNIT ONCE ONE 01/17 2330 DC 01/17 Sodium Chloride 100 ML IV 01/17 2331 2323 Lorazepam 2 MG ONCE ONE 01/18 0900 DC 01/18 IV 01/18 0901 0900 Sodium Chloride 1,000 ML BOLUS ONE 01/17 223 DC 01/17 IV 01/17 232 2234 Vancomycin HCl 0 .STK-MED ONE 01/17 230 DC .ROUTE Vancomycin HCl 1,000 MG ONCE ONE 01/17 2245 DC 01/17 Dextrose/Water 250 ML IV 01/17 2344 2310 Past History Past Medical History Neurological: NONE EENT: NONE Cardiovascular: hypertension Respiratory: NONE Gastrointestinal: NONE Hepatic: NONE Renal: ESRD on HD Musculoskeletal: NONE Psychiatric: NONE Endocrine: diabetes Past Surgical History Surgical History: unobtainable, 1 (LLE amputation) Psychosocial History Strengths/Capabilities: unable to gather at this time Psychiatric Treatment History Psych Treatment Psychiatric Treatment No (unsure, unable to gather) Substance Use/Abuse History Drug Use/Abuse Substances Used/Abused No (unable to obtain) Assessment/Plan Mental Status Orientation: Confused (sleeping soundly, not arousabl) Affect: Anxious (asleep, placid) Speech: Poverty (pt did not speak) Neuro-vegetative: Anhedonia (pt confused) Mental Status Exam: MSE General appearance: fair hygiene and grooming, disheleved in hospital gown; Attitude: asleep, cooperative with RN and staff interventions; Eye contact: none; Movement: + psychomotor slowing; Speech: pt did not speak; Affect: irritable, flat, appropriate, constricted, non-labile, congruent; Thought process: unable to assess; Thought content: had not expressed SI or HI, no paranoid ideation but very confused, per RN; Perception:unable to assess I/J: very poor given likely delirium Lab Results: Laboratory Tests 01/18 01/18 01/18 01/18 01/18 0955 0250 0250 0225 0220 Blood Gas pH (7.35 - 7.45 PH) 7.28 *L pCO2 (35 - 45 TORR) 41 pO2 (80 - 100 TORR) 115 H HCO3 (21 - 28 MEQ/L) 18 L ABG O2 Sat (Measured) (>96.0 %) 96.0 P-50 (Temp Corrected) Y Carboxyhemoglobin (1.5 - 5.0 %) 0.8 L O2 Concentration % 1 LPM Temperature (97.0 - 100.0 FARH) 100.6 H O2 Delivery Method N/C Chemistry Sodium (137 - 145 mmol/L) Pending 127 L Potassium (3.5 - 5.1 mmol/L) Pending 4.9 Chloride (98 - 107 mmol/L) Pending 93 L Carbon Dioxide (22 - 30 mmol/L) Pending 17 L Anion Gap (5 - 16) Pending 17 H BUN (7 - 17 mg/dL) Pending 60 H Creatinine (0.5 - 1.0 mg/dL) Pending 8.1 *H Estimated GFR (>60 ml/min) 5 L BUN/Creatinine Ratio (7 - 25 %) 7.4 Glucose Pending Calcium Pending Phosphorus Pending Magnesium Pending Total Bilirubin Pending AST Pending ALT Pending Albumin Pending Hematology CBC w Diff Pending WBC Pending RBC Pending Hgb Pending Hct Pending MCV Pending MCH Pending MCHC Pending RDW Pending Plt Count Pending MPV Pending Miscellaneous Ref Lab Test Result Pending Phlebotomy Draw Site LEFT RADIAL Other Body Source CSF WBC (0 - 5 /CUMM) 0 CSF RBC (-0 /CUMM) 0 CSF Comment CSF Glucose (40 - 70 mg/dL) 324 H CSF LDH (U/L) 119 CSF Total Protein (12 - 60 mg/dL) 36 01/18 01/18 0119 0108 Chemistry Lactic Acid Cancelled Coagulation PT Cancelled INR Cancelled 01/17 01/17 2251 2240 Blood Gas Bicarbonate Actual (22 - 26 MEQ/L) 19 L Mixed VBG pH (7.31 - 7.41 PH) 7.25 L Mixed VBG pCO2 (41 - 51 TORR) 44 Mixed VBG O2 Saturation (35 - 45 TORR) 73 H Carboxyhemoglobin (1.5 - 5.0 %) 1.5 Toxicology Urine Opiates Screen (>2000 NG/ML) < 100.00 Methadone Screen (>300 NG/ML) < 40 Barbiturate Screen (>200 NG/ML) < 60 Ur Phencyclidine Scrn (>25 NG/ML) < 6.00 Amphetamines Screen (>1000 NG/ML) < 100 U Benzodiazepines Scrn (>200 NG/ML) < 85 Urine Cocaine Screen (>300 NG/ML) < 50 Urine Cannabis Screen (>50 NG/ML) < 5.00 Urines Urine Color (YEL,AMB,STR) YEL Urine Clarity (CLEAR) HAZY H Urine pH (5.0 - 8.0) 7.0 Ur Specific [place] (1.001 - 1.035) 1.020 Urine Protein (NEG,<30 MG/DL) 100 H Urine Ketones (NEG) NEG Urine Nitrite (NEG) NEG Urine Bilirubin (NEG) NEG Urine Urobilinogen (0.1 - 1.0 EU/dl) 0.2 Ur Leukocyte Esterase (NEG) NEG Ur Microscopic SEDIMENT EXAMINED Urine RBC (0 - 5 /HPF) RARE Urine WBC (0 - 2 /HPF) RARE Ur Epithelial Cells (NONE,FEW) RARE Urine Bacteria (NEG/NONE) RARE H Urine Hemoglobin (NEG) TRACE-INTACT Urine Glucose (N MG/DL) >=1000 H 01/17 2230 Chemistry Sodium (137 - 145 mmol/L) 122 L Potassium (3.5 - 5.1 mmol/L) 5.5 H Chloride (98 - 107 mmol/L) 87 L Carbon Dioxide (22 - 30 mmol/L) 17 L Anion Gap (5 - 16) 19 H BUN (7 - 17 mg/dL) 59 H Creatinine (0.5 - 1.0 mg/dL) 8.1 *H Estimated GFR (>60 ml/min) 5 L BUN/Creatinine Ratio (7 - 25 %) 7.3 Glucose (65 - 99 mg/dL) 992 *H Serum Osmolality (285 - 295 MOSM/KG) 338 H Lactic Acid (0.7 - 2.1 mmol/L) 0.8 Calcium (8.4 - 10.2 mg/dL) 8.9 Total Bilirubin (0.2 - 1.3 mg/dL) 0.5 AST (14 - 36 U/L) 11 L ALT (9 - 52 U/L) 24 Alkaline Phosphatase (<127 U/L) 121 Troponin I (< 0.11 ng/ml) < 0.01 Total Protein (6.3 - 8.2 g/dL) 6.0 L Albumin (3.5 - 5.0 g/dL) 3.8 Globulin (1.9 - 4.2 gm/dL) 2.2 Albumin/Globulin Ratio (1.1 - 2.2 %) 1.7 Coagulation PT (9.4 - 12.5 SEC) 11.1 INR (0.90 - 1.19) 1.06 Hematology CBC w Diff NO MAN DIFF REQ WBC (4.8 - 10.8 /CUMM) 7.5 RBC (4.20 - 5.40 /CUMM) 3.58 L Hgb (12.0 - 16.0 G/DL) 11.4 L Hct (37 - 47 %) 33.8 L MCV (81.0 - 99.0 FL) 94.6 MCH (27.0 - 31.0 PG) 31.9 H MCHC (33.0 - 37.0 G/DL) 33.7 RDW (11.5 - 14.5 %) 14.6 H Plt Count (130 - 400 /CUMM) 227 MPV (7.4 - 10.4 FL) 8.1 Gran % (42.2 - 75.2 %) 92.2 H Lymphocytes % (20.5 - 51.1 %) 6.1 L Monocytes % (1.7 - 9.3 %) 1.4 L Eosinophils % (0 - 5 %) 0 Basophils % (0.0 - 2.0 %) 0.3 Absolute Granulocytes (1.4 - 6.5 /CUMM) 7.0 H Absolute Lymphocytes (1.2 - 3.4 /CUMM) 0.5 L Absolute Monocytes (0.10 - 0.60 /CUMM) 0.1 Absolute Eosinophils (0.0 - 0.7 /CUMM) 0 Absolute Basophils (0.0 - 0.2 /CUMM) 0 Toxicology Serum Alcohol (<10 MG/DL) < 10.0 Acetone Level (NEGATIVE) POSITIVE AT 1:2 DIL Diffential Diagnosis: Delirium secondary to underlying medical condition Impression: Pt with no formal psychiatric history and mulitple medical comorbidities now with AMS in the setting of HD, recent surgery, low-grade temperatures, hyperglycemia and multiple metabolic derangements likely representing delirium. Provisional Treatment Plan: - Will attempt to reassess pt later in the day - Treat underlying cause of delirium. Delirium can take time to clear in older and medically compromised pts. - Treatment of underlying delirium is neuroleptic. Pt seems to have responded to haldol. Would start haldol 0.5mg TID PO or IM standing with haldol IM 1mg q4hrs PRN severe agitation, NTE 4x/d. Please monitor EKG for QTc. - Would minimize or avoid use of ativan as BDZ can worsening delirium.
[2018-01-18 10:42] LABS: ABSOLUTE BASOPHIL COUNT 0 /CUMM (0.0-0.2); ABSOLUTE EOSINOPHIL COUNT 0.1 /CUMM (0.0-0.7); ABSOLUTE GRANULOCYTE CT 6.6 /CUMM (1.4-6.5); ABSOLUTE LYMPH COUNT 2.3 /CUMM (1.2-3.4); ABSOLUTE MONOCYTE COUNT 0.6 /CUMM (0.10-0.60); BASOPHIL % 0.5 % (0.0-2.0); EOSINOPHIL % 0.7 % (0-5); GRANULOCYTE % 68.3 % (42.2-75.2); MEAN CORPUSCULAR HGB CONC 34.1 G/DL (33.0-37.0); MEAN CORPUSCULAR VOLUME 93.9 FL (81.0-99.0); MEAN PLATELET VOLUME 7.5 FL (7.4-10.4); PLATELET COUNT 266 /CUMM (130-400); RBC DISTRIBUTION WIDTH 14.8 % (11.5-14.5); RED BLOOD CELL CT 3.51 /CUMM (4.20-5.40); WHITE BLOOD CELL COUNT 9.7 /CUMM (4.8-10.8)
--- NOTE | 2018-01-18 14:01 | Cons- Nephrology ---
See Addendum General Information and HPI Consulting Request Date of Consult: 01/18/18 Requested By: Saba Luong MD Reason for Consult: ESRD Source of Information: old records Exam Limitations: unable to give history History of Present Illness: The patient is a 52-year-old woman with past medical history most and then for end-stage renal disease on hemodialysis TTS, diabetes, peripheral vascular disease status post left lower extremity amputation who presents with altered mental status. The patient was reportedly in her usual state of health prior to yesterday when she was found to be altered. Her blood sugar was noted to be elevated and she refused to go to the hospital. Ultimately her family called EMS because of the altered mental status associated with sugar. She's had a presentation for blood pressure 199/87 with a temperature 100.6. Labs notable for a glucose of 992 with an anion gap of 19. Chest x-ray noted to have mild increased central pulmonary vascularity without focal consolidation. Ultimately CT was performed which demonstrated nonspecific findings including perinephric stranding and borderline enlarged RP lymph nodes. The patient ultimately required medicine for sedation as well as restraints to keep her calm. She is currently unresponsive. Should note that she gets her dialysis Saturday and Saturdays at the [facility] dialysis unit. Her last treatment was on 01/16 and this should be noted that her blood pressure did drop to 91/71. She left dialysis 0.2 kg above her dry weight. She gets her dialysis via a left upper extremity AV fistula in her dialysis treatment is for 3 hours and 15 minutes. Her target weight is 65 kg. Allergies/Medications Allergies: Coded Allergies: No Known Allergies (01/17/18) Home Med List: Aspirin (Ecotrin*) 81 MG TABLET.DR 1 TAB PO DAILY HEART/BLOOD (Reported) Cephalexin 500 MG CAPSULE 1 CAP PO 4 TIMES/DAY ABX (Reported) Diltiazem HCl (Diltiazem 24HR ER) 180 MG CAP.ER.24H 2 CAP PO DAILY HEART/BP ( Reported) Furosemide (Lasix) 80 MG TABLET 1 TAB PO MONWEDFRISUN DIURETIC (Reported) Gabapentin (Neurontin) 100 MG CAPSULE 1 CAP PO BID NERVE PAIN (Reported) Hydralazine HCl 25 MG TABLET 1 TAB PO BID BP (Reported) Insulin Glulisine (Apidra Solostar) 100 UNIT/ML INSULN.PEN 70 UNITS SC DAILY DM (Reported) Losartan Potassium (Cozaar) 50 MG TABLET 1 TAB PO BID BP (Reported) Pantoprazole Sodium (Protonix) 40 MG TABLET.DR 1 TAB PO DAILY GI (Reported) Vit B Cmplx 3/FA/Vit C/Biotin ([facility] [facility] Tablet) 1 MG-60 MG-300 MCG TABLET 1 TAB PO DAILY SUPPLEMENT (Reported) Current Medications: Current Medications Sig/Marcellus Start time Last Medication Dose Route Stop Time Status Admin Acetaminophen 0 .STK-MED ONE 01/17 2240 DC IV Acetaminophen 1,000 MG ONCE ONE 01/17 2230 DC 01/17 N/A 1 UNIT IV 01/17 2244 223 Ceftazidime 0 .STK-MED ONE 01/17 230 DC .ROUTE Ceftazidime 1,000 MG ONCE ONE 01/17 224 DC 01/17 IV 01/17 2246 2305 Haloperidol 0.5 MG TID 01/18 1600 AC PO Haloperidol 1 MG Q4P PRN 01/18 1300 AC IM Haloperidol 1 MG ONCE ONE 01/18 0915 DC 01/18 IM 01/18 0916 0915 Insulin Detemir 6 UNITS ONCE ONE 01/18 1315 DC 01/18 SC 01/18 1316 1319 Insulin Human Regular 100 UNIT ONCE ONE 01/18 0430 DC 01/18 Sodium Chloride 100 ML IV 01/18 2109 0449 Insulin Human Regular 100 UNIT ONCE ONE 01/17 2330 DC 01/17 Sodium Chloride 100 ML IV 01/17 2331 2323 Lorazepam 2 MG ONCE ONE 01/18 0900 DC 01/18 IV 01/18 0901 0900 Sodium Chloride 1,000 ML BOLUS ONE 01/17 223 DC 01/17 IV 01/17 2329 2234 Vancomycin HCl 0 .STK-MED ONE 01/17 2302 DC .ROUTE Vancomycin HCl 1,000 MG ONCE ONE 01/17 2245 DC 01/17 Dextrose/Water 250 ML IV 01/17 2344 2310 Review of Systems Review of Systems: Unable to obtain ROS as the patient is unresponsive Past History Travel History Traveled to [place] past 21 day No Medical History Neurological: NONE EENT: NONE Cardiovascular: hypertension Respiratory: NONE Gastrointestinal: NONE Hepatic: NONE Renal: ESRD on HD Musculoskeletal: NONE Psychiatric: NONE Endocrine: diabetes Surgical History Surgical History: unobtainable, 1 (LLE amputation) Psychosocial History Where Do You Live? Home Smoking Status: Never Smoked Exam & Diagnostic Data Vital Signs and I&O Vital Signs Date Time Temp Pulse Resp B/P B/P Pulse O2 O2 Flow FiO2 Mean Ox Delivery Rate 01/18 1200 98 Nasal 1.0L Cannula 01/18 0800 99.9 81 18 162/72 96 Room Air 01/18 0400 95 Room Air 01/18 0400 100.0 85 13 170/60 95 Room Air 01/18 0331 100.0 82 18 158/72 98 Nasal 1.0L Cannula 01/18 0132 100.6 86 18 164/70 98 Nasal 1.0L Cannula 01/18 0019 100.5 01/17 2319 95 18 180/68 97 Nasal 3.0L Cannula 01/17 2311 96 Nasal 3.0L Cannula 01/17 2310 99.4 01/17 2216 100.6 101 18 199/87 95 Room Air Intake & Output 01/18 1600 01/18 0400 01/17 1600 01/17 0400 01/16 1600 01/16 0400 Intake Total 12 1000 Output Total 500 Balance -488 1000 Intake, IV 12 1000 Intake, Oral 0 Number 0 Bowel Movements Output, Urine 500 Patient 154 lb Weight Weight Bed scale Measurement Method Physical Exam: Gen - unresponsive Head - NCAT Eyes - anicteric sclera, unable to fully assess motion Neck - supple, no LAD CV - RRR, no m/r/g Chest - clear anteriorly, no w/r/r Abd - soft, NTND Upper ext - warm, no edema Lower ext - warm, no edema, s/p LLE amputation Skin - no rash or jaundice Neuro - AOX3, grossly nonfocal Results Pertinent Lab Results: Laboratory Tests 01/18 01/18 01/18 0955 0500 0250 Chemistry Sodium (137 - 145 mmol/L) 137 Cancelled Potassium (3.5 - 5.1 mmol/L) 4.7 Cancelled Chloride (98 - 107 mmol/L) 99 Cancelled Carbon Dioxide (22 - 30 mmol/L) 20 L Cancelled Anion Gap (5 - 16) 18 H Cancelled BUN (7 - 17 mg/dL) 63 H Cancelled Creatinine (0.5 - 1.0 mg/dL) 9.0 *H Cancelled Estimated GFR (>60 ml/min) 5 L Glucose (65 - 99 mg/dL) 81 Cancelled Calcium (8.4 - 10.2 mg/dL) 9.7 Cancelled Phosphorus (2.5 - 4.5 mg/dL) 4.6 H Cancelled Magnesium (1.6 - 2.3 mg/dL) 2.2 Cancelled Total Bilirubin (0.2 - 1.3 mg/dL) 0.5 Cancelled AST (14 - 36 U/L) 13 L Cancelled ALT (9 - 52 U/L) 27 Cancelled Creatine Kinase (30 - 135 U/L) 76 Albumin (3.5 - 5.0 g/dL) 3.5 Cancelled TSH (0.270 - 4.200 uIU/mL) 0.913 Free T4 (0.64 - 1.79 ng/dL) 1.10 Total T3 (0.97 - 1.69 ng/mL) 0.56 L Hematology CBC w Diff NO MAN DIFF REQ WBC (4.8 - 10.8 /CUMM) 9.7 RBC (4.20 - 5.40 /CUMM) 3.51 L Hgb (12.0 - 16.0 G/DL) 11.2 L Hct (37 - 47 %) 33.0 L MCV (81.0 - 99.0 FL) 93.9 MCH (27.0 - 31.0 PG) 32.0 H MCHC (33.0 - 37.0 G/DL) 34.1 RDW (11.5 - 14.5 %) 14.8 H Plt Count (130 - 400 /CUMM) 266 MPV (7.4 - 10.4 FL) 7.5 Gran % (42.2 - 75.2 %) 68.3 Lymphocytes % (20.5 - 51.1 %) 24.0 Monocytes % (1.7 - 9.3 %) 6.5 Eosinophils % (0 - 5 %) 0.7 Basophils % (0.0 - 2.0 %) 0.5 Absolute Granulocytes (1.4 - 6.5 /CUMM) 6.6 H Absolute Lymphocytes (1.2 - 3.4 /CUMM) 2.3 Absolute Monocytes (0.10 - 0.60 /CUMM) 0.6 Absolute Eosinophils (0.0 - 0.7 /CUMM) 0.1 Absolute Basophils (0.0 - 0.2 /CUMM) 0 Other Body Source CSF Glucose (40 - 70 mg/dL) 324 H CSF LDH (U/L) 119 CSF Total Protein (12 - 60 mg/dL) 36 01/18 01/18 01/18 01/18 0250 0225 0220 0119 Blood Gas pH (7.35 - 7.45 PH) 7.28 *L pCO2 (35 - 45 TORR) 41 pO2 (80 - 100 TORR) 115 H HCO3 (21 - 28 MEQ/L) 18 L ABG O2 Sat (Measured) (>96.0 %) 96.0 P-50 (Temp Corrected) Y Carboxyhemoglobin (1.5 - 5.0 %) 0.8 L O2 Concentration % 1 LPM Temperature (97.0 - 100.0 FARH) 100.6 H O2 Delivery Method N/C Chemistry Sodium (137 - 145 mmol/L) 127 L Potassium (3.5 - 5.1 mmol/L) 4.9 Chloride (98 - 107 mmol/L) 93 L Carbon Dioxide (22 - 30 mmol/L) 17 L Anion Gap (5 - 16) 17 H BUN (7 - 17 mg/dL) 60 H Creatinine (0.5 - 1.0 mg/dL) 8.1 *H Estimated GFR (>60 ml/min) 5 L BUN/Creatinine Ratio (7 - 25 %) 7.4 Lactic Acid Cancelled Miscellaneous Ref Lab Test Result Pending Phlebotomy Draw Site LEFT RADIAL Other Body Source CSF WBC (0 - 5 /CUMM) 0 CSF RBC (-0 /CUMM) 0 CSF Comment 01/18 01/17 01/17 0108 2251 2240 Blood Gas Bicarbonate Actual (22 - 26 MEQ/L) 19 L Mixed VBG pH (7.31 - 7.41 PH) 7.25 L Mixed VBG pCO2 (41 - 51 TORR) 44 Mixed VBG O2 Saturation (35 - 45 TORR) 73 H Carboxyhemoglobin (1.5 - 5.0 %) 1.5 Coagulation PT Cancelled INR Cancelled Toxicology Urine Opiates Screen (>2000 NG/ML) < 100.00 Methadone Screen (>300 NG/ML) < 40 Barbiturate Screen (>200 NG/ML) < 60 Ur Phencyclidine Scrn (>25 NG/ML) < 6.00 Amphetamines Screen (>1000 NG/ML) < 100 U Benzodiazepines Scrn (>200 NG/ML) < 85 Urine Cocaine Screen (>300 NG/ML) < 50 Urine Cannabis Screen (>50 NG/ML) < 5.00 Urines Urine Color (YEL,AMB,STR) YEL Urine Clarity (CLEAR) HAZY H Urine pH (5.0 - 8.0) 7.0 Ur Specific [place] (1.001 - 1.035) 1.020 Urine Protein (NEG,<30 MG/DL) 100 H Urine Ketones (NEG) NEG Urine Nitrite (NEG) NEG Urine Bilirubin (NEG) NEG Urine Urobilinogen (0.1 - 1.0 EU/dl) 0.2 Ur Leukocyte Esterase (NEG) NEG Ur Microscopic SEDIMENT EXAMINED Urine RBC (0 - 5 /HPF) RARE Urine WBC (0 - 2 /HPF) RARE Ur Epithelial Cells (NONE,FEW) RARE Urine Bacteria (NEG/NONE) RARE H Urine Hemoglobin (NEG) TRACE-INTACT Urine Glucose (N MG/DL) >=1000 H 01/17 2230 Chemistry Sodium (137 - 145 mmol/L) 122 L Potassium (3.5 - 5.1 mmol/L) 5.5 H Chloride (98 - 107 mmol/L) 87 L Carbon Dioxide (22 - 30 mmol/L) 17 L Anion Gap (5 - 16) 19 H BUN (7 - 17 mg/dL) 59 H Creatinine (0.5 - 1.0 mg/dL) 8.1 *H Estimated GFR (>60 ml/min) 5 L BUN/Creatinine Ratio (7 - 25 %) 7.3 Glucose (65 - 99 mg/dL) 992 *H Serum Osmolality (285 - 295 MOSM/KG) 338 H Lactic Acid (0.7 - 2.1 mmol/L) 0.8 Calcium (8.4 - 10.2 mg/dL) 8.9 Total Bilirubin (0.2 - 1.3 mg/dL) 0.5 AST (14 - 36 U/L) 11 L ALT (9 - 52 U/L) 24 Alkaline Phosphatase (<127 U/L) 121 Troponin I (< 0.11 ng/ml) < 0.01 Total Protein (6.3 - 8.2 g/dL) 6.0 L Albumin (3.5 - 5.0 g/dL) 3.8 Globulin (1.9 - 4.2 gm/dL) 2.2 Albumin/Globulin Ratio (1.1 - 2.2 %) 1.7 Coagulation PT (9.4 - 12.5 SEC) 11.1 INR (0.90 - 1.19) 1.06 Hematology CBC w Diff NO MAN DIFF REQ WBC (4.8 - 10.8 /CUMM) 7.5 RBC (4.20 - 5.40 /CUMM) 3.58 L Hgb (12.0 - 16.0 G/DL) 11.4 L Hct (37 - 47 %) 33.8 L MCV (81.0 - 99.0 FL) 94.6 MCH (27.0 - 31.0 PG) 31.9 H MCHC (33.0 - 37.0 G/DL) 33.7 RDW (11.5 - 14.5 %) 14.6 H Plt Count (130 - 400 /CUMM) 227 MPV (7.4 - 10.4 FL) 8.1 Gran % (42.2 - 75.2 %) 92.2 H Lymphocytes % (20.5 - 51.1 %) 6.1 L Monocytes % (1.7 - 9.3 %) 1.4 L Eosinophils % (0 - 5 %) 0 Basophils % (0.0 - 2.0 %) 0.3 Absolute Granulocytes (1.4 - 6.5 /CUMM) 7.0 H Absolute Lymphocytes (1.2 - 3.4 /CUMM) 0.5 L Absolute Monocytes (0.10 - 0.60 /CUMM) 0.1 Absolute Eosinophils (0.0 - 0.7 /CUMM) 0 Absolute Basophils (0.0 - 0.2 /CUMM) 0 Toxicology Serum Alcohol (<10 MG/DL) < 10.0 Acetone Level (NEGATIVE) POSITIVE AT 1:2 DIL Imaging/Other Studies: Chest x-ray and CT imaging reviewed Assessment/Plan Assessment/Recommendations Assessment: ESRD - Due for her routine HD today. Some evidence of volume overload on imaging - will bring down to dry weight. Anemia - On Epogen 5000U TIW which can be continued here. MBD - Will convert Hectorol to Paricalcitol 2mcg TIW. AMS - appears to be 2/2 HHNK vs DKA - an infection may have precipitated this given her fever on presentation although the underlying source is not clear. Recommendations: -HD today - UF to EDW -Epogen 5000U TIW -Paricalcitol 2mcg TIW -Abx/Infectious work-up as per ICU Please call [phone] with ?'s
[2018-01-18 16:00] VITALS: BP 160/80
[2018-01-18 22:30] LABS: ABSOLUTE BASOPHIL COUNT 0 /CUMM (0.0-0.2); ABSOLUTE EOSINOPHIL COUNT 0.3 /CUMM (0.0-0.7); ABSOLUTE GRANULOCYTE CT 7.9 /CUMM (1.4-6.5); ABSOLUTE LYMPH COUNT 1.9 /CUMM (1.2-3.4); ABSOLUTE MONOCYTE COUNT 0.7 /CUMM (0.10-0.60); BASOPHIL % 0.4 % (0.0-2.0); EOSINOPHIL % 2.6 % (0-5); GRANULOCYTE % 73.4 % (42.2-75.2); MEAN CORPUSCULAR HGB 31.1 PG (27.0-31.0); MEAN CORPUSCULAR VOLUME 94.2 FL (81.0-99.0); MEAN PLATELET VOLUME 7.8 FL (7.4-10.4); PLATELET COUNT 281 /CUMM (130-400); RBC DISTRIBUTION WIDTH 15.9 % (11.5-14.5); RED BLOOD CELL CT 4.09 /CUMM (4.20-5.40); WHITE BLOOD CELL COUNT 10.8 /CUMM (4.8-10.8)
[2018-01-18 22:33] LABS: HEMATOCRIT 38.5 % (37-47)
[2018-01-18 22:35] VITALS: BP 160/71
[2018-01-19 06:04] LABS: ABSOLUTE BASOPHIL COUNT 0.1 /CUMM (0.0-0.2); ABSOLUTE EOSINOPHIL COUNT 0.3 /CUMM (0.0-0.7); ABSOLUTE GRANULOCYTE CT 6.5 /CUMM (1.4-6.5); ABSOLUTE LYMPH COUNT 1.7 /CUMM (1.2-3.4); ABSOLUTE MONOCYTE COUNT 0.6 /CUMM (0.10-0.60); BASOPHIL % 0.7 % (0.0-2.0); EOSINOPHIL % 3.7 % (0-5); GRANULOCYTE % 71.1 % (42.2-75.2); HEMATOCRIT 39.8 % (37-47); MEAN CORPUSCULAR HGB 31.5 PG (27.0-31.0); MEAN CORPUSCULAR HGB CONC 33.5 G/DL (33.0-37.0); MEAN CORPUSCULAR VOLUME 94.3 FL (81.0-99.0); MEAN PLATELET VOLUME 7.4 FL (7.4-10.4); PLATELET COUNT 276 /CUMM (130-400); RBC DISTRIBUTION WIDTH 15.5 % (11.5-14.5); RED BLOOD CELL CT 4.23 /CUMM (4.20-5.40); WHITE BLOOD CELL COUNT 9.1 /CUMM (4.8-10.8)
[2018-01-19 08:00] VITALS: BP 190/82
[2018-01-19] MEDS ORDERED: TRESIBA FL100 UNIT/1 SC (08:45)
--- NOTE | 2018-01-19 08:52 | PN- Diabetes ---
Assessment/Plan Diabetes Assessment: Patient feels a little better today. Remains very suspicious of medications that she is being given and all of her care. The patient had a very high sugar and a metabolic encephalopathy on admission. Her labs this morning are improved with a glucose of 210, creatinine 6.1 sodium 137 and potassium 4.2. She has been seen by psychiatry and is felt to have delirium. She is able to tell me that she was on Tresiiba 22 units daily and Apidra before meals. She sees Dr. Storm as an outpatient. She has had diabetes for 29 years. Her thyroid test done yesterday are within the normal range. The patient is eating breakfast today. We will place her on Levemir twice a day and sliding scale NovoLog before meals. Plan: Suggest begin Levemir 8 units twice a day the first dose now. Also begin sliding scale NovoLog before meals. Sliding scale NovoLog before meals should be 80-150 give 4 units NovoLog, 151-200 give 5 units NovoLog, 201- 250 give 6 units NovoLog, 251-300 give 7 units NovoLog, 301-350 give 8 units NovoLog, 351-400 give 9 units NovoLog. Bedtime sliding scale NovoLog should be less than 250 give no insulin, 251-300 give 2 units NovoLog, 301-350 give 3 units NovoLog, 351-400 give 4 units NovoLog. Subjective Subjective: Feels upset Review of Systems Constitutional: Denies: chills, fever. Cardiovascular: Denies: chest pain. Respiratory: Denies: cough, short of breath. Gastrointestinal: Denies: abdominal pain, nausea. Objective Last 24 Hrs of Vital Signs/I&O Vital Signs Date Time Temp Pulse Resp B/P B/P Pulse O2 O2 Flow FiO2 Mean Ox Delivery Rate 01/19 0857 194/94 01/19 0800 98.9 95 26 190/82 96 Room Air 01/18 2235 99.0 75 19 160/71 97 Room Air 01/18 2147 75 160/71 01/18 2147 75 160/71 01/18 1715 79 150/77 01/18 1600 98.3 82 23 160/80 98 Room Air 01/18 1200 98 Nasal 1.0L Cannula Intake & Output 01/19 1600 01/19 0800 01/19 0000 Intake Total 230 Output Total 10 3043 Balance -10 2816 Intake, IV 20 Intake, Oral 210 Output, Other 3000 Output, Urine 10 43 Patient 155 lb 154 lb Weight Weight Bed scale Measurement Method Physical Exam General Appearance: alert, awake, anxious Head: normal appearance Neck: normal inspection Respiratory: normal breath sounds Cardiovascular: regular rate/rhythm Abdomen: normal bowel sounds Current Medications: Current Medications Sig/Marcellus Start time Last Medication Dose Route Stop Time Status Admin Aspirin Buffered 81 MG DAILY 01/19 1000 AC PO Diltiazem HCl 360 MG DAILY 01/19 1000 CAN PO Diltiazem HCl 180 MG BID 01/19 1000 AC PO Epoetin Jonathan 3,000 UNIT TuTa 01/18 1518 AC 01/18 IV 1713 Epoetin Jonathan 2,000 UNIT TuTa 01/18 1516 AC 01/18 IV 1713 Epoetin Jonathan 2,000 UNIT [facility] PRN 01/18 1445 DC [facility] DC IV Furosemide 80 MG SuMoWeFr@1000 01/19 1000 AC PO Gabapentin 100 MG BID 01/18 2200 AC PO Haloperidol 1 MG ONCE ONE 01/18 1800 DC 01/18 IM 01/18 1801 1801 Haloperidol 0.5 MG TID 01/18 1600 AC PO Haloperidol 1 MG ONCE ONE 01/18 1545 DC 01/18 IM 01/18 1546 1545 Haloperidol 1 MG Q4P PRN 01/18 1300 AC IM Haloperidol 1 MG ONCE ONE 01/18 0915 DC 01/18 IM 01/18 0916 0915 Hydralazine HCl 25 MG BID 01/18 2200 AC 01/19 PO 0857 Hydralazine HCl 10 MG ONCE ONE 01/18 1630 DC IV 01/18 1631 Insulin Aspart 0 TIDAC/HS 01/19 1200 AC SC Insulin Aspart 0 TIDAC 01/19 0800 DC SC Insulin Aspart 0 TIDAC 01/18 1845 DC 01/19 SC 0757 Insulin Detemir 8 UNITS BID 01/19 1000 AC SC Insulin Detemir 6 UNITS ONCE ONE 01/18 1315 DC 01/18 SC 01/18 1316 1319 Insulin Human Regular 100 UNIT ONCE ONE 01/18 0430 DC 01/18 Sodium Chloride 100 ML IV 01/18 2109 0449 Lorazepam 1 MG ONCE ONE 01/18 1800 DC 01/18 IV 01/18 1801 1750 Lorazepam 0.5 MG ONCE PRN 01/18 1630 DC IV 01/18 2300 Lorazepam 2 MG ONCE ONE 01/18 0900 DC 01/18 IV 01/18 0901 0900 Losartan Potassium 50 MG BID 01/18 2200 AC PO Omeprazole 40 MG DAILY AC 01/19 0700 AC PO Paricalcitol 2 MCG TuThSa 01/18 1518 AC 01/18 IV 1714 Paricalcitol 2 MCG TuThSa PRN 01/18 1445 DC IV Findings Pertinent Lab/Pedro Results: Laboratory Tests 01/19 01/18 0545 2200 Chemistry Sodium (137 - 145 mmol/L) 137 139 Potassium (3.5 - 5.1 mmol/L) 4.2 3.9 Chloride (98 - 107 mmol/L) 99 101 Carbon Dioxide (22 - 30 mmol/L) 24 27 Anion Gap (5 - 16) 14 12 BUN (7 - 17 mg/dL) 33 H 29 H Creatinine (0.5 - 1.0 mg/dL) 6.1 *H 4.9 H Estimated GFR (>60 ml/min) 7 L 9 L BUN/Creatinine Ratio (7 - 25 %) 5.4 L Glucose (65 - 99 mg/dL) 210 H 121 H Calcium (8.4 - 10.2 mg/dL) 9.7 Phosphorus (2.5 - 4.5 mg/dL) 3.7 Magnesium (1.6 - 2.3 mg/dL) 2.0 Total Bilirubin (0.2 - 1.3 mg/dL) 0.7 AST (14 - 36 U/L) 32 ALT (9 - 52 U/L) 32 Albumin (3.5 - 5.0 g/dL) 3.8 Hematology CBC w Diff NO MAN DIFF REQ NO MAN DIFF REQ WBC (4.8 - 10.8 /CUMM) 9.1 10.8 RBC (4.20 - 5.40 /CUMM) 4.23 4.09 L Hgb (12.0 - 16.0 G/DL) 13.3 12.7 Hct (37 - 47 %) 39.8 38.5 MCV (81.0 - 99.0 FL) 94.3 94.2 MCH (27.0 - 31.0 PG) 31.5 H 31.1 H MCHC (33.0 - 37.0 G/DL) 33.5 33.0 RDW (11.5 - 14.5 %) 15.5 H 15.9 H Plt Count (130 - 400 /CUMM) 276 281 MPV (7.4 - 10.4 FL) 7.4 7.8 Gran % (42.2 - 75.2 %) 71.1 73.4 Lymphocytes % (20.5 - 51.1 %) 18.1 L 17.3 L Monocytes % (1.7 - 9.3 %) 6.4 6.3 Eosinophils % (0 - 5 %) 3.7 2.6 Basophils % (0.0 - 2.0 %) 0.7 0.4 Absolute Granulocytes (1.4 - 6.5 /CUMM) 6.5 7.9 H Absolute Lymphocytes (1.2 - 3.4 /CUMM) 1.7 1.9 Absolute Monocytes (0.10 - 0.60 /CUMM) 0.6 0.7 H Absolute Eosinophils (0.0 - 0.7 /CUMM) 0.3 0.3 Absolute Basophils (0.0 - 0.2 /CUMM) 0.1 0 02/17 0955 Chemistry Sodium (137 - 145 mmol/L) 137 Potassium (3.5 - 5.1 mmol/L) 4.7 Chloride (98 - 107 mmol/L) 99 Carbon Dioxide (22 - 30 mmol/L) 20 L Anion Gap (5 - 16) 18 H BUN (7 - 17 mg/dL) 63 H Creatinine (0.5 - 1.0 mg/dL) 9.0 *H Estimated GFR (>60 ml/min) 5 L Glucose (65 - 99 mg/dL) 81 Calcium (8.4 - 10.2 mg/dL) 9.7 Phosphorus (2.5 - 4.5 mg/dL) 4.6 H Magnesium (1.6 - 2.3 mg/dL) 2.2 Total Bilirubin (0.2 - 1.3 mg/dL) 0.5 AST (14 - 36 U/L) 13 L ALT (9 - 52 U/L) 27 Creatine Kinase (30 - 135 U/L) 76 Albumin (3.5 - 5.0 g/dL) 3.5 TSH (0.270 - 4.200 uIU/mL) 0.913 Free T4 (0.64 - 1.79 ng/dL) 1.10 Total T3 (0.97 - 1.69 ng/mL) 0.56 L Hematology CBC w Diff NO MAN DIFF REQ WBC (4.8 - 10.8 /CUMM) 9.7 RBC (4.20 - 5.40 /CUMM) 3.51 L Hgb (12.0 - 16.0 G/DL) 11.2 L Hct (37 - 47 %) 33.0 L MCV (81.0 - 99.0 FL) 93.9 MCH (27.0 - 31.0 PG) 32.0 H MCHC (33.0 - 37.0 G/DL) 34.1 RDW (11.5 - 14.5 %) 14.8 H Plt Count (130 - 400 /CUMM) 266 MPV (7.4 - 10.4 FL) 7.5 Gran % (42.2 - 75.2 %) 68.3 Lymphocytes % (20.5 - 51.1 %) 24.0 Monocytes % (1.7 - 9.3 %) 6.5 Eosinophils % (0 - 5 %) 0.7 Basophils % (0.0 - 2.0 %) 0.5 Absolute Granulocytes (1.4 - 6.5 /CUMM) 6.6 H Absolute Lymphocytes (1.2 - 3.4 /CUMM) 2.3 Absolute Monocytes (0.10 - 0.60 /CUMM) 0.6 Absolute Eosinophils (0.0 - 0.7 /CUMM) 0.1 Absolute Basophils (0.0 - 0.2 /CUMM) 0
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
--- NOTE | 2018-01-19 09:17 | PN- Resident CRCU ---
Subjective HPI/CRCU Issues: Patient seen and examined. She is seen sitting upright in bed resting comfortably maintained on a mya for unsafe ambulation. She appears agitated but in no acute distress. There is a patient safety monitor at bedside whom offers no addition collateral information. Per nursing staff patient became combatative last night and this morning requiring restraints and IM Haldol. Patient reports only neck and back pain with a mild headache but otherwise denies any blurred/double vision, lightheadedness, dizziness, chest pain, palpitations, heartburn, shortness of breath, cough, nausea, vomiting, diarrhea. Objective Vital Signs & I&O Last 8 Hrs of Vitals and I&O: VS since 0000 -Temp 98.9 -HR 75-105 -RR 29-26 -BP 190-194/82-94 -O2 96% Exam General Appearance: well developed/nourished, awake, anxious Other Physical Findings: GEN: well developed, thin middle aged woman moderately agitated, but in no acute distress HEENT: NCAT, PERRL, EOMI, anicteric sclera NECK: Supple, no JVD, trachea midline CARD: Normal S1/S2 w/o m/g/r; RRR PULM: CTA bilaterally ABD: Soft, NT, ND, BS+ : [place] catheter draining clear/yellow urine NEURO: Awake and alert, oriented to self, tangential,agitated, noncooperative, fast paced speach but fluent, CN II-XII grossly intact EXT: Left BKA, normal pulse, no edema Current Medications: Current Medications Sig/Marcellus Start time Last Medication Dose Route Stop Time Status Admin Aspirin Buffered 81 MG DAILY 01/19 1000 AC PO Diltiazem HCl 360 MG DAILY 01/19 1000 CAN PO Diltiazem HCl 180 MG BID 01/19 1000 AC PO Epoetin Jonathan 3,000 UNIT TuThSa 01/18 1518 AC 01/18 IV 1713 Epoetin Jonathan 2,000 UNIT TuThSa 01/18 1516 AC 01/18 IV 1713 Epoetin Jonathan 2,000 UNIT TuThSa PRN 01/18 1445 DC IV Epoetin Jonathan 3,000 UNIT TuThSa 01/18 1440 DC IV Furosemide 80 MG SuMoWeFr@1000 01/19 1000 AC PO Gabapentin 100 MG BID 01/18 2200 DC PO Haloperidol 1 MG ONCE ONE 01/19 0915 CAN IM 01/19 0916 Haloperidol 1 MG ONCE ONE 01/18 1800 DC 01/18 IM 01/18 1801 1801 Haloperidol 0.5 MG TID 01/18 1600 AC 01/19 PO 0918 Haloperidol 1 MG ONCE ONE 01/18 1545 DC 01/18 IM 01/18 1546 1545 Haloperidol 1 MG Q4P PRN 01/18 1300 AC IM Hydralazine HCl 10 MG ONCE ONE 01/19 0915 CAN IV 01/19 0916 Hydralazine HCl 25 MG BID 01/18 2200 AC 01/19 PO 0857 Hydralazine HCl 10 MG ONCE ONE 01/18 1630 DC IV 01/18 1631 Insulin Aspart 0 TIDAC/HS 01/19 1200 AC SC Insulin Aspart 0 TIDAC 01/19 0800 DC SC Insulin Aspart 0 TIDAC 01/18 1845 DC 01/19 SC 0757 Insulin Detemir 8 UNITS BID 01/19 1000 AC 01/19 SC 0900 Insulin Detemir 6 UNITS ONCE ONE 01/18 1315 DC 01/18 SC 01/18 1316 1319 Insulin Human Regular 100 UNIT ONCE ONE 01/18 0430 DC 01/18 Sodium Chloride 100 ML IV 01/18 2109 0449 Lorazepam 1 MG ONCE ONE 01/18 1800 DC 01/18 IV 01/18 1801 1750 Lorazepam 0.5 MG ONCE PRN 01/18 1630 DC IV 01/18 2300 Losartan Potassium 50 MG BID 01/18 2200 AC PO Omeprazole 40 MG DAILY AC 01/19 0700 AC PO Paricalcitol 2 MCG TuThSa 01/18 1518 AC 01/18 IV 1714 Paricalcitol 2 MCG TuThSa PRN 01/18 1445 DC IV Impression/Plan Impression/Problem List Impression: 52 year old woman with multiple medical problems seen for evaluation of altered mental status and found to have significantly elevated blood sugar for which she was admitted to the ICU for HHS. Patient continues to have outbursts and is refusing multiple interventions including medications. Patient safety monitor, restraints, and cartagena are continued for these reasons. Patient reluctantly took her oral medications this morning, but may require IM Haldol for further agitation. Problem List -Altered mental status, probable hyperglycemic delerium -Hyperosmolar hyperglycemic state, resolved -Pseudohyponatremia, resolved -ESRD on HD (T, Th, S) -Insulin-dependent diabetes mellitus -PVD with LLE BKA -Hypertension Plan -ICU -Cartagena discontinued -Mya restraint -Patient safety monitor -Hemodialysis (Saturday, , Saturday) -Avoid Benzodiazpenes -Accuchecks TIDAC/HS with Novolog SSI -Levemir 8 units BID -Haldol 0.5 mg PO TID, give Haldol IM PRN for agitation -Continue omeprazole, aspirin, furosemide, -Continue losartan, hydralazine -Continue paricalcitol, epoetin -Hold Gabapentin -Consults with endocrinology, nephrology and psychiatry -Follow up cultures & sensitivites -Monitor electrolytes -Follow up echocardiogram -Pain control PRN -Renal Diet -DVT PPx with ALPS -FULL CODE Problem List: 1. Hyperglycemic hyperosmolar nonketotic coma 2. CKD (chronic kidney disease) Pain Ratin Tomorrow's Labs & Rationales: CBC, BMP, Mg Plan DVT/Prophylaxis: mechanical
[2018-01-19 16:00] VITALS: BP 120/50
--- NOTE | 2018-01-19 18:27 | ECHOCARDIOGRAM REPORT ---
HELLEN BOWERS Age: 52 : 1965 Gender: F Exam Date: 01/19/2018 11:03 Exam Location: [facility] Ht (in): 67 Wt (lb): 155 BSA: 1.83 BP: 190 / 82 Ordering Physician: Thi Alarcon MD Referring Physician: Thi Alarcon MD Technologist: Huy Myers [facility] Room Number: 114-01 Indications: HEART FAILURE Rhythm: Technical Quality: Good FINDINGS Left Ventricle Normal global left ventricular size, wall thickness, systolic function with no obvious regional wall motion abnormalities. Left ventricular ejection fraction is estimated at > 55 %. Right Ventricle Normal right ventricular size and function. Right Atrium Normal right atrial size. Left Atrium Normal left atrial size. Mitral Valve Structurally normal mitral valve. Trace mitral regurgitation. Aortic Valve No aortic stenosis. Trace aortic regurgitation. Trileaflet aortic valve. Tricuspid Valve Structurally normal tricuspid valve. Trace tricuspid regurgitation. Unable to estimate the right ventricular systolic pressure. Pulmonic Valve Pulmonic valve not well visualized, grossly normal. Pericardium No pericardial effusion. Great Vessels Normal size aortic root. CONCLUSIONS Normal global left ventricular size, wall thickness, systolic function with no obvious regional wall motion abnormalities. Left ventricular ejection fraction is estimated at > 55 %. Normal right ventricular size and function. Unable to estimate the right ventricular systolic pressure. No pericardial effusion. Gaetano Vasquez M.D. (Electronically Signed) Final Date: 19 January 2018 18:26 MEASUREMENTS (Male / Female) Normal Values 2D ECHO LV Diastolic Diameter PLAX 4.7 cm 4.2 - 5.9 / 3.9 - 5.3 cm LV Systolic Diameter PLAX 3.1 cm 2.1 - 4.0 cm LV Fractional Shortening PLAX 34.0 % 25 - 46 % LV Ejection Fraction 2D Teich 63.0 % IVS Diastolic Thickness 0.9 cm LVPW Diastolic Thickness 1.1 cm LV Relative Wall Thickness 0.4 RV Internal Dim ED PLAX 2.5 cm 1.9 - 3.8 cm LVOT Diameter 2.1 cm Aortic Root Diameter 2.7 cm LA Systolic Diameter LX 3.0 cm 3.0 - 4.0 / 2.7 - 3.8 cm RVOT Diameter 2.1 cm 2.5 - 2.9 cm LA Volume 56.0 cm 18 - 58 / 22 - 52 cm RV Diastolic Area 3.5 cm 11 - 28 cm Ascending Aorta Diameter 3.4 cm DOPPLER AV Peak Velocity 224.0 cm/s AV Peak Gradient 20.1 mmHg AV Mean Velocity 154.0 cm/s AV Mean Gradient 11.0 mmHg AV Velocity Time Integral 38.3 cm LVOT Peak Velocity 165.0 cm/s LVOT Peak Gradient 10.9 mmHg LVOT Mean Velocity 106.0 cm/s LVOT Mean Gradient 5.0 mmHg LVOT Velocity Time Integral 29.6 cm LVOT Stroke Volume 102.5 cm AV Area Cont Eq vti 2.7 cm AV Area Cont Eq pk 2.6 cm MV Peak Velocity 120.0 cm/s MV Peak Gradient 5.8 mmHg MV Mean Velocity 93.6 cm/s MV Mean Gradient 4.0 mmHg Mitral E Point Velocity 77.0 cm/s Mitral A Point Velocity 113.0 cm/s Mitral E to A Ratio 0.7 MV PHT Velocity 111.0 cm/s MV Deceleration [place] 505.0 cm/s MV Pressure Half Time 65.9 ms MV Area PHT 3.3 cm MV Deceleration Time 190.0 ms TV Peak Velocity 231.5 cm/s TV Peak E Velocity 59.9 cm/s TV Peak A Velocity 70.6 cm/s TV E to A Ratio 0.8 Right Atrial Pressure 3.0 mmHg PV Peak Velocity 141.0 cm/s PV Peak Gradient 8.0 mmHg PV Mean Velocity 98.5 cm/s PV Mean Gradient 4.5 mmHg PV Velocity Time Integral 24.6 cm QpQs Shunt Ratio 0.8 PV Area Cont Eq vti 3.5 cm PV Area Cont Eq pk 2.8 cm LV E' Lateral Velocity 7.4 cm/s Mitral E to LV E' Lateral Ratio 10.4 LV E' Septal Velocity 4.8 cm/s Mitral E to LV E' Septal Ratio 16.1
[2018-01-20] VITALS: BP 133/62
[2018-01-20 06:31] LABS: ABSOLUTE BASOPHIL COUNT 0 /CUMM (0.0-0.2); ABSOLUTE EOSINOPHIL COUNT 0.5 /CUMM (0.0-0.7); ABSOLUTE LYMPH COUNT 2.3 /CUMM (1.2-3.4); ABSOLUTE MONOCYTE COUNT 0.6 /CUMM (0.10-0.60); BASOPHIL % 0.4 % (0.0-2.0); EOSINOPHIL % 6.1 % (0-5); GRANULOCYTE % 58.9 % (42.2-75.2); HEMATOCRIT 40.5 % (37-47); MEAN CORPUSCULAR HGB 31.6 PG (27.0-31.0); MEAN CORPUSCULAR HGB CONC 33.2 G/DL (33.0-37.0); MEAN CORPUSCULAR VOLUME 95.2 FL (81.0-99.0); MEAN PLATELET VOLUME 7.4 FL (7.4-10.4); PLATELET COUNT 316 /CUMM (130-400); RBC DISTRIBUTION WIDTH 15.4 % (11.5-14.5); RED BLOOD CELL CT 4.26 /CUMM (4.20-5.40); WHITE BLOOD CELL COUNT 8.5 /CUMM (4.8-10.8)
--- NOTE | 2018-01-20 07:28 | PN- Resident CRCU ---
Subjective HPI/CRCU Issues: HHS AMS 24 Hour Events: Patient seen and examined. Resting comfortably. No acute distress. There is a patient safety monitor at bedside whom offers no addition collateral information. As per nursing staff patient has been more cooperative and less combatative. Yesterday patient needed to be restrained again received Haldol for agitation and IV hydralazine for blood pressure control Tmax 100 Heart rate ranging from 70s to 110 Normal sinus rhythm Respiratory rate 18 to 20s Blood pressure ranging from 120-190/50 to 90s Satting in 96% on room air Input and output adequate . Foleys Catheter has been discontinued Patient safety monitor has been discontinued no restraints/[place] CBC unremarkable Sodium 136, pressure 4.2 BUN 55, creatinine 8.1, anion gap closed Patient on dialysis regimen of Saturday and Saturday Fingersticks 342, 180, 200. Patient is presently on Levemir 8 units twice a day and sliding insulin scale as per recommendation Objective Vital Signs & I&O Last 8 Hrs of Vitals and I&O: Intake & Output 01/20 0800 Intake Total 0 Output Total 0 Balance 0 Intake, Oral 0 Output, Urine 0 Patient 169 lb Weight Exam General Appearance: well developed/nourished, no apparent distress, comfortable Head: atraumatic Respiratory: normal breath sounds, chest non-tender Cardiovascular: s1 s2 Gastrointestinal: normal bowel sounds, soft, non-tender Cranial Nerves: normal speech Other Physical Findings: Fistula noted in the left upper extremity with good bruit, LLE BKA Current Medications: Current Medications Sig/Marcellus Start time Last Medication Dose Route Stop Time Status Admin Aspirin Buffered 81 MG DAILY 01/19 1000 AC PO Diltiazem HCl 360 MG DAILY 01/19 1000 CAN PO Diltiazem HCl 180 MG BID 01/19 1000 AC 01/19 PO 2123 Epoetin Jonathan 3,000 UNIT [facility] 01/18 1518 AC 01/18 IV 1713 Epoetin Jonathan 2,000 UNIT [facility] 01/18 1516 AC 01/18 IV 1713 Furosemide 80 MG SuMoWeFr@1000 01/19 1000 AC PO Gabapentin 100 MG BID 01/18 2200 DC PO Haloperidol 1 MG ONCE ONE 01/19 0915 CAN IM 01/19 0916 Haloperidol 0.5 MG TID 01/18 1600 AC 01/19 PO 2123 Haloperidol 1 MG Q4P PRN 01/18 1300 AC IM Hydralazine HCl 50 MG BID 01/19 2200 AC 01/19 PO 2124 Hydralazine HCl 5 MG ONCE ONE 01/19 1215 DC 01/19 IV 01/19 1216 1315 Hydralazine HCl 10 MG ONCE ONE 01/19 0915 CAN IV 01/19 0916 Hydralazine HCl 25 MG BID 01/18 2200 DC 01/19 PO 0857 Insulin Aspart 4 UNITS ONCE ONE 01/19 1430 DC 01/19 SC 01/19 1431 1433 Insulin Aspart 0 TIDAC/HS 01/19 1200 AC 01/19 SC 2122 Insulin Aspart 0 TIDAC 01/18 1845 DC 01/19 SC 0757 Insulin Detemir 8 UNITS BID 01/19 1000 AC 01/19 SC 2123 Losartan Potassium 50 MG BID 01/18 2200 AC 01/19 PO 212 Omeprazole 40 MG DAILY AC 01/19 0700 AC PO Paricalcitol 2 MCG [facility] 01/18 1518 AC 01/18 IV 1714 Impression/Plan Impression/Problem List Impression: 52 year old woman with multiple medical problems seen for evaluation of altered mental status and found to have significantly elevated blood sugar for which she was admitted to the ICU for HHS. She is being evaluated and treated for following conditions Respiratory No issues Infectious Afebrile no white count pancultures CSF appears normal -Follow-up PCR for HSV Cardiology #History of hypertension -Continue Cardizem, Lasix, Losartan, hydralazine -BP continues to be elevated likely secondary to agitation. Required IV hydralazine yesterday as well. Currently Stable -Echocardiogram WNL , right ventricular systolic pressure were not estimated #History of PVD with LLE BKA -Continue to monitor, wound healing well Hematology -Continue paricalcitol in setting of ESRD, epoetin on hold for now Metabolic #Hyperosmolar hyperglycemic state, resolved Pt presented with blood sugar 991 and effective osmolality was 305. Initially patient was started on insulin drip which has been discontinued on 01/18 -Patient is currently on Novolog insulin sliding scale as per endo recommendations before meals and at bedtime. -She is also on Levemir 8 units BID -Patient remains afebrile without white count without any growth in cultures. Board spectrum antibiotics have been discontinued #Hyponatremia - resolved likely pseudohyponatremia secondary to hyperglycemia -Continue to monitor BEP #Insulin-dependent diabetes mellitus -Accuchecks TIDAC/HS , Continue current regimen Alimentary -on Renal Diet -Continue omeprazole Nephrology #ESRD Patient has history of end-stage renal and currently on dialysis with schedule Saturday and Saturdays. She has Left upper extremity AV fistula -HD on Saturday, creatinine 8.1 today -Epogen 5000U TIW discontinued for now Hb 13.4 -Paricalcitol 2mcg TIW Neurology #Altered mental status, metabolic probable hyperglycemic delerium along with ESRD Improving patient is less agitated and more cooperative. Patient safety monitor has been discontinued no restraints/[place]. Patient remains afebrile without white count. Less likely to be infectious. She also underwent spinal On admission CSF WNL limits, U tox negative -Haldol 0.5 mg PO TID, give Haldol IM PRN for agitation, consider stopping the standing dose and tapering Haldol -Avoid Benzodiazpenes -Gabapentin on hold -Follow-up EKG for QTc interval QTC 440 -Follow up cultures no growth so far, broad spectrum antibiotics have been discontinue DVT PPx with ALPS CODE STATUS FULL CODE Problem List: 1. Hyperglycemic hyperosmolar nonketotic coma Pain Ratin Tomorrow's Labs & Rationales: cbc icu bundle Plan DVT/Prophylaxis: mechanical
--- NOTE | 2018-01-20 07:29 | PN- Diabetes ---
Assessment/Plan Diabetes Assessment: The patient apparently slept all night. Her mood has improved and she is much more cooperative according to the nurses. Yesterday her sugars were high as we began her subcutaneous insulin. The patient is presently on 8 units of Levemir twice a day along with sliding scale NovoLog before meals with a separate sliding scale at bedtime. Her fingerstick blood sugar this morning is 180. Plan: Suggest continue the present insulin. We will monitor her sugars today before making further adjustments. Psychiatry to see patient again and perhaps her Haldol can begin to be tapered. Subjective Subjective: Feels improved Objective Last 24 Hrs of Vital Signs/I&O Vital Signs Date Time Temp Pulse Resp B/P B/P Pulse O2 O2 Flow FiO2 Mean Ox Delivery Rate 01/20 0000 99.0 73 16 133/62 96 Room Air 01/19 2124 84 141/84 01/19 2124 84 141/01/19 1600 100.0 76 20 120/50 96 Room Air 01/19 1315 86 176/87 01/19 0858 105 194/01/19 0857 19401/19 0800 98.9 95 26 190/82 96 Room Air Intake & Output 01/20 0800 01/20 0000 01/19 1600 Intake Total 0 960 490 Output Total 0 Balance 0 960 490 Intake, IV 10 Intake, Oral 0 960 480 Number 1 Bowel Movements Output, Urine 0 Patient 169 lb Weight Vital Signs Date Time Temp Pulse Resp B/P B/P Pulse O2 O2 Flow FiO2 Mean Ox Delivery Rate 01/20 0000 99.0 73 16 133/62 96 Room Air 01/19 2124 84 141/84 01/19 2124 84 141/84 01/19 1600 100.0 76 20 120/50 96 Room Air 01/19 1315 86 176/87 01/19 0858 105 194/94 01/19 0857 19494 01/19 0800 98.9 95 26 190/82 96 Room Air Intake & Output 01/20 0800 01/20 0000 01/19 1600 Intake Total 0 960 490 Output Total 0 Balance 0 960 490 Intake, IV 10 Intake, Oral 0 960 480 Number 1 Bowel Movements Output, Urine 0 Patient 169 lb Weight Physical Exam General Appearance: alert, awake, comfortable Head: normal appearance Neck: normal inspection Respiratory: normal breath sounds Cardiovascular: regular rate/rhythm Current Medications: Current Medications Sig/Marcellus Start time Last Medication Dose Route Stop Time Status Admin Aspirin Buffered 81 MG DAILY 01/19 1000 AC PO Diltiazem HCl 360 MG DAILY 01/19 1000 CAN PO Diltiazem HCl 180 MG BID 01/19 1000 AC 01/19 PO 2123 Epoetin Jonathan 3,000 UNIT [facility] 01/18 1518 AC 01/18 IV 1713 Epoetin Jonathan 2,000 UNIT [facility] 01/18 1516 AC 01/18 IV 1713 Furosemide 80 MG SuMoWeFr@1000 01/19 1000 AC PO Gabapentin 100 MG BID 01/18 2200 DC PO Haloperidol 1 MG ONCE ONE 01/19 0915 CAN IM 01/19 0916 Haloperidol 0.5 MG TID 01/18 1600 AC 01/19 PO 2123 Haloperidol 1 MG Q4P PRN 01/18 1300 AC IM Hydralazine HCl 50 MG BID 01/19 2200 AC 01/19 PO 2124 Hydralazine HCl 5 MG ONCE ONE 01/19 1215 DC 01/19 IV 01/19 1216 1315 Hydralazine HCl 10 MG ONCE ONE 01/19 0915 CAN IV 01/19 0916 Hydralazine HCl 25 MG BID 01/18 2200 DC 01/19 PO 0857 Insulin Aspart 4 UNITS ONCE ONE 01/19 1430 DC 01/19 SC 01/19 1431 1433 Insulin Aspart 0 TIDAC/HS 01/19 1200 AC 01/19 SC 2122 Insulin Aspart 0 TIDAC 01/18 1845 DC 01/19 SC 0757 Insulin Detemir 8 UNITS BID 01/19 1000 AC 01/19 SC 2123 Losartan Potassium 50 MG BID 01/18 2200 AC 01/19 PO 2124 Omeprazole 40 MG DAILY AC 01/19 0700 AC PO Paricalcitol 2 MCG [facility] 01/18 1518 AC 01/18 IV 1714 Findings Pertinent Lab/Pedro Results: Laboratory Tests 01/20 0610 Chemistry Sodium (137 - 145 mmol/L) 136 L Potassium (3.5 - 5.1 mmol/L) 4.2 Chloride (98 - 107 mmol/L) 100 Carbon Dioxide (22 - 30 mmol/L) 22 Anion Gap (5 - 16) 15 BUN (7 - 17 mg/dL) 55 H Creatinine (0.5 - 1.0 mg/dL) 8.1 *H Estimated GFR (>60 ml/min) 5 L BUN/Creatinine Ratio (7 - 25 %) 6.8 L Magnesium (1.6 - 2.3 mg/dL) 2.3 Hematology CBC w Diff NO MAN DIFF REQ WBC (4.8 - 10.8 /CUMM) 8.5 RBC (4.20 - 5.40 /CUMM) 4.26 Hgb (12.0 - 16.0 G/DL) 13.4 Hct (37 - 47 %) 40.5 MCV (81.0 - 99.0 FL) 95.2 MCH (27.0 - 31.0 PG) 31.6 H MCHC (33.0 - 37.0 G/DL) 33.2 RDW (11.5 - 14.5 %) 15.4 H Plt Count (130 - 400 /CUMM) 316 MPV (7.4 - 10.4 FL) 7.4 Gran % (42.2 - 75.2 %) 58.9 Lymphocytes % (20.5 - 51.1 %) 27.3 Monocytes % (1.7 - 9.3 %) 7.3 Eosinophils % (0 - 5 %) 6.1 H Basophils % (0.0 - 2.0 %) 0.4 Absolute Granulocytes (1.4 - 6.5 /CUMM) 5.0 Absolute Lymphocytes (1.2 - 3.4 /CUMM) 2.3 Absolute Monocytes (0.10 - 0.60 /CUMM) 0.6 Absolute Eosinophils (0.0 - 0.7 /CUMM) 0.5 Absolute Basophils (0.0 - 0.2 /CUMM) 0
[2018-01-20 08:00] VITALS: BP 122/70
--- NOTE | 2018-01-20 09:16 | PN- Nephrology ---
Assessment/Plan Nephrology Assessment: 1. ESRD: due to DM & HTN; no HD need today 2. DKA: improved Suggestion: HD tomorrow D/C EPO re hi Hg OK for floor from renal perspective Subjective Subjective: Awake & alert Cooperative No complaints Objective Vital Signs and I&Os Vital Signs Date Time Temp Pulse Resp B/P B/P Pulse O2 O2 Flow FiO2 Mean Ox Delivery Rate 01/20 0800 97 Room Air Room Air 01/20 0800 98.3 77 20 122/70 97 Room Air Room Air 01/20 0000 99.0 73 16 133/62 96 Room Air 01/19 2124 84 141/84 01/19 2124 84 141/84 01/19 1600 100.0 76 20 120/50 96 Room Air 01/19 1315 86 176/87 Intake & Output 01/20 1600 01/20 0400 01/19 1600 01/19 0400 01/18 1600 01/18 0400 Intake Total 0 960 490 074 75 6952 Output Total 0 10 3043 650 Balance 0 960 480 -2813 -604 1000 Intake, IV 10 20 46 1000 Intake, Oral 0 960 480 210 0 Number 1 1 Bowel Movements Output, Other 3000 Output, Urine 0 10 43 650 Patient 169 lb 155 lb 154 lb 160 lb 154 lb Weight Weight Bed scale Bed scale Bed scale Measurement Method Physical Exam General Appearance: well developed/nourished, no apparent distress, alert Head: atraumatic, normal appearance Neck: normal inspection Respiratory: normal breath sounds, no respiratory distress, quiet respiration, lungs clear Cardiovascular: regular rate/rhythm Abdomen: soft, non-tender, no organomegaly Extremities: L BKA, + bruit ANJELICA AVF Neurologic/Psychiatric: awake, alert, oriented x 3 Skin: intact, normal color, warm/dry Current Medications: Current Medications Sig/Marcellus Start time Last Medication Dose Route Stop Time Status Admin Acetaminophen 650 MG ONCE ONE 01/20 0830 DC 01/20 PO 01/20 0831 0826 Aspirin Buffered 81 MG DAILY 01/19 1000 AC PO Diltiazem HCl 180 MG BID 01/19 1000 AC 01/19 PO 2123 Epoetin Jonathan 3,000 UNIT [facility] 01/18 1518 AC 01/18 IV 1713 Epoetin Jonathan 2,000 UNIT [facility] 01/18 1516 AC 01/18 IV 1713 Furosemide 80 MG SuMoWeFr@1000 01/19 1000 AC PO Gabapentin 100 MG BID 01/18 2200 DC PO Haloperidol 1 MG ONCE ONE 01/19 0915 CAN IM 01/19 0916 Haloperidol 0.5 MG TID 01/18 1600 AC 01/19 PO 2123 Haloperidol 1 MG Q4P PRN 01/18 1300 AC IM Hydralazine HCl 50 MG BID 01/19 2200 AC 01/19 PO 2124 Hydralazine HCl 5 MG ONCE ONE 01/19 1215 DC 01/19 IV 01/19 1216 1315 Hydralazine HCl 10 MG ONCE ONE 01/19 0915 CAN IV 01/19 0916 Hydralazine HCl 25 MG BID 01/18 2200 DC 01/19 PO 0857 Insulin Aspart 4 UNITS ONCE ONE 01/19 1430 DC 01/19 SC 01/19 1431 1433 Insulin Aspart 0 TIDAC/HS 01/19 1200 AC 01/20 SC 0811 Insulin Detemir 8 UNITS BID 01/19 1000 AC 01/19 SC 2123 Losartan Potassium 50 MG BID 01/18 2200 AC 01/19 PO 212 Omeprazole 40 MG DAILY AC 01/19 0700 AC PO Paricalcitol 2 MCG [facility] 01/18 1518 AC 01/18 IV 1714 Results Pertinent Lab Results: Laboratory Tests 01/20 01/19 0610 0545 Chemistry Sodium (137 - 145 mmol/L) 136 L 137 Potassium (3.5 - 5.1 mmol/L) 4.2 4.2 Chloride (98 - 107 mmol/L) 100 99 Carbon Dioxide (22 - 30 mmol/L) 22 24 Anion Gap (5 - 16) 15 14 BUN (7 - 17 mg/dL) 55 H 33 H Creatinine (0.5 - 1.0 mg/dL) 8.1 *H 6.1 *H Estimated GFR (>60 ml/min) 5 L 7 L BUN/Creatinine Ratio (7 - 25 %) 6.8 L 5.4 L Glucose (65 - 99 mg/dL) 210 H Magnesium (1.6 - 2.3 mg/dL) 2.3 Hematology CBC w Diff NO MAN DIFF REQ NO MAN DIFF REQ WBC (4.8 - 10.8 /CUMM) 8.5 9.1 RBC (4.20 - 5.40 /CUMM) 4.26 4.23 Hgb (12.0 - 16.0 G/DL) 13.4 13.3 Hct (37 - 47 %) 40.5 39.8 MCV (81.0 - 99.0 FL) 95.2 94.3 MCH (27.0 - 31.0 PG) 31.6 H 31.5 H MCHC (33.0 - 37.0 G/DL) 33.2 33.5 RDW (11.5 - 14.5 %) 15.4 H 15.5 H Plt Count (130 - 400 /CUMM) 316 276 MPV (7.4 - 10.4 FL) 7.4 7.4 Gran % (42.2 - 75.2 %) 58.9 71.1 Lymphocytes % (20.5 - 51.1 %) 27.3 18.1 L Monocytes % (1.7 - 9.3 %) 7.3 6.4 Eosinophils % (0 - 5 %) 6.1 H 3.7 Basophils % (0.0 - 2.0 %) 0.4 0.7 Absolute Granulocytes (1.4 - 6.5 /CUMM) 5.0 6.5 Absolute Lymphocytes (1.2 - 3.4 /CUMM) 2.3 1.7 Absolute Monocytes (0.10 - 0.60 /CUMM) 0.6 0.6 Absolute Eosinophils (0.0 - 0.7 /CUMM) 0.5 0.3 Absolute Basophils (0.0 - 0.2 /CUMM) 0 0.1 01/18 01/18 2200 0955 Chemistry Sodium (137 - 145 mmol/L) 139 137 Potassium (3.5 - 5.1 mmol/L) 3.9 4.7 Chloride (98 - 107 mmol/L) 101 99 Carbon Dioxide (22 - 30 mmol/L) 27 20 L Anion Gap (5 - 16) 12 18 H BUN (7 - 17 mg/dL) 29 H 63 H Creatinine (0.5 - 1.0 mg/dL) 4.9 H 9.0 *H Estimated GFR (>60 ml/min) 9 L 5 L Glucose (65 - 99 mg/dL) 121 H 81 Calcium (8.4 - 10.2 mg/dL) 9.7 9.7 Phosphorus (2.5 - 4.5 mg/dL) 3.7 4.6 H Magnesium (1.6 - 2.3 mg/dL) 2.0 2.2 Total Bilirubin (0.2 - 1.3 mg/dL) 0.7 0.5 AST (14 - 36 U/L) 32 13 L ALT (9 - 52 U/L) 32 27 Creatine Kinase (30 - 135 U/L) 76 Albumin (3.5 - 5.0 g/dL) 3.8 3.5 TSH (0.270 - 4.200 uIU/mL) 0.913 Free T4 (0.64 - 1.79 ng/dL) 1.10 Total T3 (0.97 - 1.69 ng/mL) 0.56 L Hematology CBC w Diff NO MAN DIFF REQ NO MAN DIFF REQ WBC (4.8 - 10.8 /CUMM) 10.8 9.7 RBC (4.20 - 5.40 /CUMM) 4.09 L 3.51 L Hgb (12.0 - 16.0 G/DL) 12.7 11.2 L Hct (37 - 47 %) 38.5 33.0 L MCV (81.0 - 99.0 FL) 94.2 93.9 MCH (27.0 - 31.0 PG) 31.1 H 32.0 H MCHC (33.0 - 37.0 G/DL) 33.0 34.1 RDW (11.5 - 14.5 %) 15.9 H 14.8 H Plt Count (130 - 400 /CUMM) 281 266 MPV (7.4 - 10.4 FL) 7.8 7.5 Gran % (42.2 - 75.2 %) 73.4 68.3 Lymphocytes % (20.5 - 51.1 %) 17.3 L 24.0 Monocytes % (1.7 - 9.3 %) 6.3 6.5 Eosinophils % (0 - 5 %) 2.6 0.7 Basophils % (0.0 - 2.0 %) 0.4 0.5 Absolute Granulocytes (1.4 - 6.5 /CUMM) 7.9 H 6.6 H Absolute Lymphocytes (1.2 - 3.4 /CUMM) 1.9 2.3 Absolute Monocytes (0.10 - 0.60 /CUMM) 0.7 H 0.6 Absolute Eosinophils (0.0 - 0.7 /CUMM) 0.3 0.1 Absolute Basophils (0.0 - 0.2 /CUMM) 0 0 01/18 01/18 01/18 01/18 01/18 0500 0341 0250 0250 0225 Chemistry Sodium (137 - 145 mmol/L) Cancelled 127 L Potassium (3.5 - 5.1 mmol/L) Cancelled 4.9 Chloride (98 - 107 mmol/L) Cancelled 93 L Carbon Dioxide (22 - 30 mmol/L) Cancelled 17 L Anion Gap (5 - 16) Cancelled 17 H BUN (7 - 17 mg/dL) Cancelled 60 H Creatinine (0.5 - 1.0 mg/dL) Cancelled 8.1 *H Estimated GFR (>60 ml/min) 5 L BUN/Creatinine Ratio (7 - 25 %) 7.4 Glucose Cancelled Calcium Cancelled Phosphorus Cancelled Magnesium Cancelled Total Bilirubin Cancelled AST Cancelled ALT Cancelled Albumin Cancelled Miscellaneous Ref Lab Test Result Pending Other Body Source CSF WBC (0 - 5 /CUMM) 0 CSF RBC (-0 /CUMM) 0 CSF Comment CSF Glucose (40 - 70 mg/dL) 324 H CSF LDH (U/L) 119 CSF Total Protein (12 - 60 mg/dL) 36 Toxicology Methadone Screen Cancelled Barbiturate Screen Cancelled Ur Phencyclidine Scrn Cancelled Amphetamines Screen Cancelled U Benzodiazepines Scrn Cancelled Urine Cocaine Screen Cancelled Urine Cannabis Screen Cancelled 01/18 01/18 01/18 022 0119 0108 Blood Gas pH (7.35 - 7.45 PH) 7.28 *L pCO2 (35 - 45 TORR) 41 pO2 (80 - 100 TORR) 115 H HCO3 (21 - 28 MEQ/L) 18 L ABG O2 Sat (Measured) (>96.0 %) 96.0 P-50 (Temp Corrected) Y Carboxyhemoglobin (1.5 - 5.0 %) 0.8 L O2 Concentration % 1 LPM Temperature (97.0 - 100.0 FARH) 100.6 H O2 Delivery Method N/C Chemistry Lactic Acid Cancelled Coagulation PT Cancelled INR Cancelled Miscellaneous Phlebotomy Draw Site LEFT RADIAL 01/17 01/17 6724 0984 Blood Gas Bicarbonate Actual (22 - 26 MEQ/L) 19 L Mixed VBG pH (7.31 - 7.41 PH) 7.25 L Mixed VBG pCO2 (41 - 51 TORR) 44 Mixed VBG O2 Saturation (35 - 45 TORR) 73 H Carboxyhemoglobin (1.5 - 5.0 %) 1.5 Toxicology Urine Opiates Screen (>2000 NG/ML) < 100.00 Methadone Screen (>300 NG/ML) < 40 Barbiturate Screen (>200 NG/ML) < 60 Ur Phencyclidine Scrn (>25 NG/ML) < 6.00 Amphetamines Screen (>1000 NG/ML) < 100 U Benzodiazepines Scrn (>200 NG/ML) < 85 Urine Cocaine Screen (>300 NG/ML) < 50 Urine Cannabis Screen (>50 NG/ML) < 5.00 Urines Urine Color (YEL,AMB,STR) YEL Urine Clarity (CLEAR) HAZY H Urine pH (5.0 - 8.0) 7.0 Ur Specific [place] (1.001 - 1.035) 1.020 Urine Protein (NEG,<30 MG/DL) 100 H Urine Ketones (NEG) NEG Urine Nitrite (NEG) NEG Urine Bilirubin (NEG) NEG Urine Urobilinogen (0.1 - 1.0 EU/dl) 0.2 Ur Leukocyte Esterase (NEG) NEG Ur Microscopic SEDIMENT EXAMINED Urine RBC (0 - 5 /HPF) RARE Urine WBC (0 - 2 /HPF) RARE Ur Epithelial Cells (NONE,FEW) RARE Urine Bacteria (NEG/NONE) RARE H Urine Hemoglobin (NEG) TRACE-INTACT Urine Glucose (N MG/DL) >=1000 H 01/17 2230 Chemistry Sodium (137 - 145 mmol/L) 122 L Potassium (3.5 - 5.1 mmol/L) 5.5 H Chloride (98 - 107 mmol/L) 87 L Carbon Dioxide (22 - 30 mmol/L) 17 L Anion Gap (5 - 16) 19 H BUN (7 - 17 mg/dL) 59 H Creatinine (0.5 - 1.0 mg/dL) 8.1 *H Estimated GFR (>60 ml/min) 5 L BUN/Creatinine Ratio (7 - 25 %) 7.3 Glucose (65 - 99 mg/dL) 992 *H Serum Osmolality (285 - 295 MOSM/KG) 338 H Lactic Acid (0.7 - 2.1 mmol/L) 0.8 Calcium (8.4 - 10.2 mg/dL) 8.9 Total Bilirubin (0.2 - 1.3 mg/dL) 0.5 AST (14 - 36 U/L) 11 L ALT (9 - 52 U/L) 24 Alkaline Phosphatase (<127 U/L) 121 Troponin I (< 0.11 ng/ml) < 0.01 Total Protein (6.3 - 8.2 g/dL) 6.0 L Albumin (3.5 - 5.0 g/dL) 3.8 Globulin (1.9 - 4.2 gm/dL) 2.2 Albumin/Globulin Ratio (1.1 - 2.2 %) 1.7 Coagulation PT (9.4 - 12.5 SEC) 11.1 INR (0.90 - 1.19) 1.06 Hematology CBC w Diff NO MAN DIFF REQ WBC (4.8 - 10.8 /CUMM) 7.5 RBC (4.20 - 5.40 /CUMM) 3.58 L Hgb (12.0 - 16.0 G/DL) 11.4 L Hct (37 - 47 %) 33.8 L MCV (81.0 - 99.0 FL) 94.6 MCH (27.0 - 31.0 PG) 31.9 H MCHC (33.0 - 37.0 G/DL) 33.7 RDW (11.5 - 14.5 %) 14.6 H Plt Count (130 - 400 /CUMM) 227 MPV (7.4 - 10.4 FL) 8.1 Gran % (42.2 - 75.2 %) 92.2 H Lymphocytes % (20.5 - 51.1 %) 6.1 L Monocytes % (1.7 - 9.3 %) 1.4 L Eosinophils % (0 - 5 %) 0 Basophils % (0.0 - 2.0 %) 0.3 Absolute Granulocytes (1.4 - 6.5 /CUMM) 7.0 H Absolute Lymphocytes (1.2 - 3.4 /CUMM) 0.5 L Absolute Monocytes (0.10 - 0.60 /CUMM) 0.1 Absolute Eosinophils (0.0 - 0.7 /CUMM) 0 Absolute Basophils (0.0 - 0.2 /CUMM) 0 Toxicology Serum Alcohol (<10 MG/DL) < 10.0 Acetone Level (NEGATIVE) POSITIVE AT 1:2 DIL
--- NOTE | 2018-01-20 09:19 | Transfer of Care Summary ---
Hospital Course Course Hospital Course: Reason for ICU admission: HHS and AMS 2/2 to hyper glycemia HPI: The patient is a 52-year-old woman with past medical history most and then for end-stage renal disease on hemodialysis TTS, diabetes, peripheral vascular disease status post left lower extremity amputation who presents with altered mental status. Patient's blood sugar was elevated but she refuses to go to the hospital ultimately had a family called the EMS because of AMS Interval events Patient was extremely agitated and combative during her stay. She required restraint, safety monitor and Haldol. Her blood pressure remained significantly elevated despite her antihypertensive regimen because of severe agitation. Received IV hydralazine for blood pressure control yesterday -She is being treated and evaluated for following conditions #Hyperosmolar hyperglycemic state, resolved Pt presented with blood sugar 991 and effective osmolality was 305. Initially patient was started on insulin drip which has been discontinued on 01/18 -Patient is currently on Novolog insulin sliding scale as per endo recommendations before meals and at bedtime. -She is also on Levemir 8 units BID #Altered mental status, metabolic probable hyperglycemic delerium along with ESRD Improving patient is less agitated and more cooperative. Patient safety monitor has been discontinued no restraints/[place]. Patient remains afebrile without white count ,without any growth in cultures. AMS Less likely to be infectious. She also underwent spinal On admission CSF WNL limits, U tox negative. Her presentation was most likely secondary to metabolic encephalopathy due to hyperglycemic delirium. -Give Haldol IM PRN for agitation, consider tapering Haldol as per psy -Avoid Benzodiazpenes ; Gabapentin on hold -Board spectrum antibiotics have been discontinued -Follow up cultures no growth so far -Follow-up PCR for HSV #Hyponatremia - resolved likely pseudohyponatremia secondary to hyperglycemia -Continue to monitor BEP #Insulin-dependent diabetes mellitus -Accuchecks TIDAC/HS , Continue current regimen #ESRD Patient has history of end-stage renal and currently on dialysis with schedule Saturday and Saturdays. She has Left upper extremity AV fistula -HD on Saturday, creatinine 8.1 today -Epogen 5000U TIW discontinued for now Hb 13.4 -Paricalcitol 2mcg TIW #History of hypertension -Continue Cardizem, Lasix, Losartan, hydralazine -BP continued to be elevated likely secondary to agitation. Required IV hydralazine yesterday as well. Currently Stable -Echocardiogram WNL , right ventricular systolic pressure were not estimated #History of PVD with LLE BKA -Continue to monitor, wound healing well Mechanical ventilation: no NIPPV: no Antibiotics: initially started on broad-spectrum vancomycin and ceftazidime later discontinued Catheter/lines: Stock[place]'s catheter placed later discontinued Things to be followed up -Continue current sliding scale and Levemir dose -Follow-up with endocrinology and adjust home regimen as per their recommendations on discharge -Patient is on hemodialysis with schedule of Saturday and Saturday. She will require dialysis tomorrow. -We have discontinued standing dose of Haldol currently she is on when necessary dose. Follow-up psychiatry recommendations -Monitor QTC while on Haldol, do not exceed more than 4 mg a day -Avoid benzodiazepines with the potential to worsen delirium -Gabapentin is on hold, will reassess and restart. -Follow-up PCR for HSV -Follow cultures final sensitivities -Epogen has been discontinued as per renal recommendation in setting of hemoglobin of 13, reassess Nutrition patient is on renal dialysis diet DVT prophylaxis with Alp and SC heparin CODE STATUS full code Assessment/Plan: see above
--- NOTE | 2018-01-20 10:04 | PN- CRCU ---
Subjective HPI/Critical Care Issues: Much improved Stable Objective Current Medications: Current Medications Sig/Marcellus Start time Last Medication Dose Route Stop Time Status Admin Acetaminophen 650 MG ONCE ONE 01/20 0830 DC 01/20 PO 01/20 0831 0826 Aspirin Buffered 81 MG DAILY 01/19 1000 AC 01/20 PO 0950 Diltiazem HCl 180 MG BID 01/19 1000 AC 01/20 PO 0950 Epoetin Jonathan 3,000 UNIT [facility] 01/18 1518 DC 01/18 IV 1713 Epoetin Jonathan 2,000 UNIT [facility] 01/18 1516 AC 01/18 IV 1713 Furosemide 80 MG SuMoWeFr@1000 01/19 1000 AC 01/20 PO 0951 Haloperidol 0.5 MG TID 01/18 1600 AC 01/19 PO 2123 Haloperidol 1 MG Q4P PRN 01/18 1300 AC IM Hydralazine HCl 50 MG BID 01/19 2200 AC 01/20 PO 0950 Hydralazine HCl 5 MG ONCE ONE 01/19 1215 DC 01/19 IV 01/19 1216 1315 Hydralazine HCl 25 MG BID 01/18 2200 DC 01/19 PO 0857 Insulin Aspart 4 UNITS ONCE ONE 01/19 1430 DC 01/19 SC 01/19 1431 1433 Insulin Aspart 0 TIDAC/HS 01/19 1200 AC 01/20 SC 0811 Insulin Detemir 8 UNITS BID 01/19 1000 AC 01/20 SC 0951 Losartan Potassium 50 MG BID 01/18 2200 AC 01/20 PO 0950 Multivitamins 1 TAB DAILY 01/20 1000 AC PO Omeprazole 40 MG DAILY AC 01/19 0700 AC PO Paricalcitol 2 MCG [facility] 01/18 1518 AC 01/18 IV 1714 Vital Signs & I&O Last 24 Hrs of Vitals and I&O: Vital Signs Date Time Temp Pulse Resp B/P B/P Pulse O2 O2 Flow FiO2 Mean Ox Delivery Rate 01/20 0950 98.3 78 20 128/67 01/20 0950 98.3 78 20 128/67 01/20 0800 97 Room Air Room Air 01/20 0800 98.3 77 20 122/70 97 Room Air Room Air 01/20 0000 99.0 73 16 133/62 96 Room Air 01/19 2124 84 141/84 01/19 2124 84 141/84 01/19 1600 100.0 76 20 120/50 96 Room Air 01/19 1315 86 176/87 Intake & Output 01/20 1600 01/20 0800 01/20 0000 Intake Total 0 960 Output Total 0 Balance 0 960 Intake, Oral 0 960 Output, Urine 0 Patient 169 lb Weight Impression/Plan Impression/Plan Impression/Plan: General Appearance aao x 3 Skin No Rashes, No Breakdown, No Significant Lesion HEENT Atraumatic, PERRLA, EOMI Neck No JVD, neck stiffness was present Cardiovascular Normal S1, Normal S2 Lungs Clear to Auscultation, Normal Air Movement Abdomen Soft, No Tenderness Neurological somnolent, moving all limbs, Extremities No Clubbing, No Cyanosis, No Edema, Normal Pulses, left leg was amputated, Rt wrist and thumb injury prior to coming here noted, thumb in a splint and wrist has eagle bandange Vascular Normal Pulses, Pulses Symmetrical Fistula noted in the left upper extremity with good bruit SIGNIFICANT DATA CT scan of the chest abdomen and pelvis reviewed which showed trace effusion, cardiomegaly, bilateral perinephric stranding, trace pleural fluid, borderline enlarged retroperitoneal lymphadenopathy Head CT unremarkable Chest x-ray showed mild increased vascular congestion IMPRESSION This is a 52-year-old unfortunate gentleman with history of diabetes, end-stage renal disease on dialysis 3 times a week, recent amputation of the left lower extremity, no known significant psychiatric history, multiple comorbid conditions as noted above came in with significant severe delirium, altered mental status, low-grade temperature 100.6, negative influenza swab, negative tox screen, negative lumbar puncture. As this appears to be related to metabolic encephalopathy leading to severe delirium, With sig hyperosmolar state aswell. Now resolved Resolved Pseudohyponatremia secondary to hyperglycemia REsolved Hyperosmolar state and DKA upon admission which is resolved Resolved Significant metabolic acidosis related to renal insufficiency and ketosis with no lactic acidosis Resolved Significant agitated aggressive state Recent amputation with peripheral vascular disease now stable and wound seems to be healing History of hypertension, peripheral vascular disease on multiple medications now appears to be still hypertensive related to her agitation and combative behavior. Rt wrist and rt thumb injury present upon admission to the ed RECOMMENDATION Hold ATC haldol and use only if needed PSych to follow Follow endo rec Oob to chair Renal following for dialysis Ambulate Ok to the floor
[2018-01-20 16:00] VITALS: BP 130/62
--- NOTE | 2018-01-20 17:51 | PN- Psychiatry ---
Assessment/Plan Impression: This is a 52 y.o. , woman who was brought to the ED 01/17/18 @ 2221 with a chief complaint of hyperglycemia and altered mental status. Past medical history includes gestational diabetes after the of her supportive daughter, age 27. 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 She had been presented with several surgical alternatives, and after planning over a year, elected for the left BKA on 12/11/17. She has been through physical rehab and is partway through her home rehab program with PT and OT. She had been offered Zoloft after the surgery, but had declined. She has participated in counseling through her surgeon's referral, and does not feel she needs psychotherapy at this time, but is remaining open-minded. She has been on hemodialysis for ESRD for the past 3 years; Saturday, and Saturday. She had met with several prosthesis representatives, and is working with her first unit and making good adjustment while using a walker. 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 She lives alone with her cat, and her supportive daughter lives nearby with her father. She reports she is independent and has high standards for herself and others. She is usually physically active and looks forward to resuming her activities. The patient reports that she is adherent to orders for her diabetes treatment, but has had many changes in her regimen in the recent past. She suspects that her neuropathic pain medication, gabapentin, may have had an interaction with her glucose level. She denies any suicidal ideation or intentional noncompliance. She states that at work, she sometimes cannot stop to perform self-care, due to a busy schedule. Her employer allows her to care for herself, as needed. She has no memory of the events of Saturday or Saturday, when she was rigid and lifting herself off the bed. She was combative and uncooperative. She was very frightened, per her nurse, and was hypervigilant. She needed hemodialysis and the team did not want to restrain her graft arm, and asked the health analytics consultant psychiatrist to recommend a chemical restraint to calm her. Haloperidol was ordered and she received three doses of 0.5 mg PO TID on 01/19/19, but none on , nor 01/20. All haloperidol orders have been discontinued. Although she has resources for mental health care at her disposal, I left a OPS card with her and encouraged her to call if she wants to talk with a therapist. Suggestion: The patient is calm and conversational. She is not suicidal, psychotic, nor delirious. She is clread for discharge from a pstchiatry viewpoint. Thank you for this consult. Psychiatry is signing off. Subjective Subjective: A+OX3. Denies AH, VH and presents no natasha delusions. Denies anxiety. Denies depressive feelings; denies hopelessness, helplessness, worthessness or guilty feelings. She denies SI, HI; denies any history of suicide attempt. She denies use of alcohol, drugs or cannabis. Mood euthymic; affect full range. Normal psychiatric exam Review of Systems Neurological/Psychological: Denies: anxiety, depressed, emotional problems. Objective Last 24 Hrs of Vital Signs/I&O Vital Signs Date Time Temp Pulse Resp B/P B/P Pulse O2 O2 Flow FiO2 Mean Ox Delivery Rate 01/20 1600 98.0 71 18 130/62 96 Room Air Room Air 01/20 0950 98.3 78 20 128/67 01/20 0950 98.3 78 20 128/67 01/20 0800 97 Room Air Room Air 01/20 0800 98.3 77 20 122/70 97 Room Air Room Air 01/20 0000 99.0 73 16 133/62 96 Room Air 01/19 2124 84 141/84 01/19 2124 84 141/84 Intake & Output 01/20 1600 01/20 0800 01/20 0000 Intake Total 400 0 960 Output Total 100 0 Balance 300 0 960 Intake, Oral 400 0 960 Output, Urine 100 0 Patient 169 lb Weight Physical Exam: Not performed. Physical Exam General Appearance: no apparent distress, alert, awake, comfortable Neurologic/Psychiatric: awake, alert, oriented x 3 Current Medications: Current Medications Sig/Marcellus Start time Last Medication Dose Route Stop Time Status Admin Acetaminophen 650 MG ONCE ONE 01/20 0830 DC 01/20 PO 01/20 0831 0826 Aspirin Buffered 81 MG DAILY 01/19 1000 AC 01/20 PO 0950 Calcium Carbonate 500 MG WITH MEALS 01/20 1200 AC 01/20 PO 1632 Diltiazem HCl 180 MG BID 01/19 1000 AC 01/20 PO 0950 Epoetin Jonathan 3,000 UNIT [facility] 01/18 1518 DC 01/18 IV 1713 Epoetin Jonathan 2,[address] [facility] 01/18 1516 DC 01/18 IV 1713 Furosemide 80 MG SuMoWeFr@1000 01/19 1000 AC 01/20 PO 0951 Haloperidol 0.5 MG TID 01/18 1600 DC 01/19 PO 2123 Haloperidol 1 MG Q4P PRN 01/18 1300 DC IM Heparin Sodium 5,000 UNIT Q8 01/20 1400 AC 01/20 (Porcine) SC 1407 Hydralazine HCl 50 MG BID 01/19 2200 AC 01/20 PO 0950 Insulin Aspart 0 TIDAC/HS 01/19 1200 AC 01/20 SC 1632 Insulin Detemir 8 UNITS BID 01/19 1000 AC 01/20 SC 0951 Losartan Potassium 50 MG BID 01/18 2200 AC 01/20 PO 0950 Multivitamins 1 TAB DAILY 01/20 1000 AC 01/20 PO 1051 Omeprazole 40 MG DAILY AC 01/19 0700 AC PO Paricalcitol [address] [facility] 01/18 1518 AC 01/18 IV 1714 Senna 187 MG AT BEDTIME NEED.. 01/20 1015 AC PO Results Last 24 Hrs of Labs/Mics: Laboratory Tests 01/20 0610 Chemistry Sodium (137 - 145 mmol/L) 136 L Potassium (3.5 - 5.1 mmol/L) 4.2 Chloride (98 - 107 mmol/L) 100 Carbon Dioxide (22 - 30 mmol/L) 22 Anion Gap (5 - 16) 15 BUN (7 - 17 mg/dL) 55 H Creatinine (0.5 - 1.0 mg/dL) 8.1 *H Estimated GFR (>60 ml/min) 5 L BUN/Creatinine Ratio (7 - 25 %) 6.8 L Hemoglobin A1c (4.2 - 5.8 %) Pending Magnesium (1.6 - 2.3 mg/dL) 2.3 Hematology CBC w Diff NO MAN DIFF REQ WBC (4.8 - 10.8 /CUMM) 8.5 RBC (4.20 - 5.40 /CUMM) 4.26 Hgb (12.0 - 16.0 G/DL) 13.4 Hct (37 - 47 %) 40.5 MCV (81.0 - 99.0 FL) 95.2 MCH (27.0 - 31.0 PG) 31.6 H MCHC (33.0 - 37.0 G/DL) 33.2 RDW (11.5 - 14.5 %) 15.4 H Plt Count (130 - 400 /CUMM) 316 MPV (7.4 - 10.4 FL) 7.4 Gran % (42.2 - 75.2 %) 58.9 Lymphocytes % (20.5 - 51.1 %) 27.3 Monocytes % (1.7 - 9.3 %) 7.3 Eosinophils % (0 - 5 %) 6.1 H Basophils % (0.0 - 2.0 %) 0.4 Absolute Granulocytes (1.4 - 6.5 /CUMM) 5.0 Absolute Lymphocytes (1.2 - 3.4 /CUMM) 2.3 Absolute Monocytes (0.10 - 0.60 /CUMM) 0.6 Absolute Eosinophils (0.0 - 0.7 /CUMM) 0.5 Absolute Basophils (0.0 - 0.2 /CUMM) 0
[2018-01-20 20:10] VITALS: BP 160/82
[2018-01-21 05:28] VITALS: BP 148/78
--- NOTE | 2018-01-21 07:54 | PN- Housestaff ---
[place] GARNICA,James 01/21/18 0754: Subjective Follow-up For: HHS ESRD on HD IDDM AMS Subjective: Patient seen and examined. She is seen lying on her side in bed resting comfortably. She appears to be in no acute distress. She reports a mild headache for which she was given tylenol earlier that seems to be working. She feels well and has no new complaints. Review of Systems Constitutional: Reports: see HPI. Objective Last 24 Hrs of Vital Signs/I&O Vital Signs Date Time Temp Pulse Resp B/P B/P Pulse O2 O2 Flow FiO2 Mean Ox Delivery Rate 01/21 0528 97.8 71 22 148/78 98 Room Air 01/20 2240 78 160/72 01/20 2240 78 160/82 01/20 2010 98.8 78 17 160/82 97 Room Air 01/20 1600 98.0 71 18 130/62 96 Room Air Room Air Intake & Output 01/21 1600 01/21 0800 01/21 0000 Intake Total 250 720 Output Total 100 Balance 250 620 Intake, IV 10 Intake, Oral 240 720 Number 0 Bowel Movements Output, Urine 100 Patient 73.482 kg Weight Physical Exam General Appearance: Alert, Oriented X3, Cooperative, No Acute Distress Other Physical Findings: GEN: well developed, thin middle aged woman in no acute distress HEENT: NCAT, PERRL, EOMI, anicteric sclera NECK: Supple, no JVD, trachea midline CARD: Normal S1/S2 w/o m/g/r; RRR PULM: CTA bilaterally ABD: Soft, NT, ND, BS+ NEURO: Awake and alert, CN II-XII grossly intact EXT: Left BKA, normal pulse, no edema Current Medications: Current Medications Sig/Marcellus Start time Last Medication Dose Route Stop Time Status Admin Acetaminophen 650 MG ONCE ONE 01/21 0445 DC 01/21 PO 01/21 0446 0447 Aspirin Buffered 81 MG DAILY 01/19 1000 AC 01/20 PO 0950 Calcium Carbonate 500 MG WITH MEALS 01/20 1200 AC 01/20 PO 1632 Diltiazem HCl 180 MG BID 01/19 1000 AC 01/20 PO 2240 Epoetin Jonathan 2,000 UNIT PER PROTOCL PRN 01/21 1000 CAN IV Epoetin Jonathan 3,000 UNIT PER PROTOCL PRN 01/21 0945 CAN IV Furosemide 80 MG SuMoWeFr@1000 01/19 1000 AC 01/20 PO 0951 Haloperidol 1 MG Q4P PRN 01/18 1300 DC IM Heparin Sodium 5,000 UNIT Q8 01/20 1400 AC 01/21 (Porcine) SC 0448 Hydralazine HCl 50 MG BID 01/19 2200 AC 01/20 PO 2240 Insulin Aspart 0 TIDAC/HS 01/19 1200 AC 01/20 SC 1632 Insulin Detemir 8 UNITS BID 01/19 1000 AC 01/20 SC 2239 Losartan Potassium 50 MG BID 01/18 2200 AC 01/20 PO 2240 Multivitamins 1 TAB DAILY 01/20 1000 AC 01/20 PO 1051 Omeprazole 40 MG DAILY AC 01/19 0700 AC 01/21 PO 0448 Paricalcitol 2 MCG PER PROTOCL PRN 01/21 1000 CAN IV Paricalcitol 2 MCG [facility] 01/18 1518 AC 01/18 IV 1714 Senna 187 MG AT BEDTIME NEED.. 01/20 1015 AC PO Last 24 Hrs of Lab/Pedro Results Last 24 Hrs of Labs/Mics: Laboratory Tests 01/21/18 0840: Anion Gap 19 H, Estimated GFR 4 L, BUN/Creatinine Ratio 7.3, Glucose 304 H, Calcium 9.1, CBC w Diff NO MAN DIFF REQ, RBC 4.02 L, MCV 93.7, MCH 31.5 H, MCHC 33.6, RDW 15.0 H, MPV 8.1, Gran % 63.9, Lymphocytes % 24.2, Monocytes % 6.5, Eosinophils % 5.0, Basophils % 0.4, Absolute Granulocytes 4.5, Absolute Lymphocytes 1.7, Absolute Monocytes 0.5, Absolute Eosinophils 0.4, Absolute Basophils 0 Assessment/Plan Assessment: 52 year old woman with multiple medical problems seen for evaluation of altered mental status and found to have significantly elevated blood sugar for which she was admitted to the ICU for HHS. Patients fingersticks have ranged from 200-260 during the day yesterday, this morning 242 on the current insulin regimen; levemir is being increased to 10 units. She received hemodialysis today uneventfully. Psychiatry has cleared the patient for discharge, she is in good spirits today an no longer confused / agitated. Problem List -Altered mental status, probable hyperglycemic delerium; resolved -Hyperosmolar hyperglycemic state, resolved -Pseudohyponatremia, resolved -ESRD on HD (, , ) -Insulin-dependent diabetes mellitus -PVD with LLE BKA -Hypertension Plan -General Medicine -Hemodialysis (Saturday, , Saturday) -Avoid Benzodiazpenes -Accuchecks TIDAC/HS with Novolog SSI -Levemir increased to 10 units BID -Continue omeprazole, aspirin, furosemide, -Continue losartan, hydralazine -Continue paricalcitol, epoetin -Hold Gabapentin -Consults with endocrinology, nephrology and psychiatry -Follow up cultures & sensitivites -Monitor electrolytes -Pain control PRN -Renal Diet -DVT PPx with ALPS -FULL CODE Problem List: 1. Hyperglycemic hyperosmolar nonketotic coma 2. Sepsis Pain Ratin Pain Location: None Pain Goal: Remain pain free Pain Plan: See assessment Tomorrow's Labs & Rationales: None Baron GARNICA,[facility] 01/21/18 1307: Attending MD Review Statement Attending Statement Attending MD Statement: examined this patient, discuss w/resident/PA/RADIOGRAPHER MAMMOGRAPHER, agreed w/resident/PA/RADIOGRAPHER MAMMOGRAPHER, reviewed EMR data (avail), discussed with nursing, discussed with case mgmt, reviewed images, amended to note Attending Assessment/Plan: Patient seen and examined, feels overall better. Getting HD done. Blood sugars were high this am and Dr. Iglesias recommends increasing the levemir. Vital Signs Date Time Temp Pulse Resp B/P B/P Pulse O2 O2 Flow FiO2 Mean Ox Delivery Rate 01/21 0528 97.8 71 22 148/78 98 Room Air 01/20 2240 78 160/72 01/20 2240 78 160/82 01/20 2010 98.8 78 17 160/82 97 Room Air 01/20 1600 98.0 71 18 130/62 96 Room Air Room Air on exam; aox3, nad. cv; s1,s2, rrr resp; clear abd; soft, nt, bs+ ext; no edema. Laboratory Tests 01/21 01/21 0840 0500 Chemistry Sodium (137 - 145 mmol/L) 133 L Cancelled Potassium (3.5 - 5.1 mmol/L) 4.7 Cancelled Chloride (98 - 107 mmol/L) 96 L Cancelled Carbon Dioxide (22 - 30 mmol/L) 19 L Cancelled Anion Gap (5 - 16) 19 H Cancelled BUN (7 - 17 mg/dL) 72 H Cancelled Creatinine (0.5 - 1.0 mg/dL) 9.9 *H Cancelled Estimated GFR (>60 ml/min) 4 L BUN/Creatinine Ratio (7 - 25 %) 7.3 Cancelled Glucose (65 - 99 mg/dL) 304 H Calcium (8.4 - 10.2 mg/dL) 9.1 Phosphorus (2.5 - 4.5 mg/dL) 7.5 H Cancelled Magnesium Cancelled Hematology CBC w Diff NO MAN DIFF REQ WBC (4.8 - 10.8 /CUMM) 7.1 RBC (4.20 - 5.40 /CUMM) 4.02 L Hgb (12.0 - 16.0 G/DL) 12.7 Hct (37 - 47 %) 37.6 MCV (81.0 - 99.0 FL) 93.7 MCH (27.0 - 31.0 PG) 31.5 H MCHC (33.0 - 37.0 G/DL) 33.6 RDW (11.5 - 14.5 %) 15.0 H Plt Count (130 - 400 /CUMM) 315 MPV (7.4 - 10.4 FL) 8.1 Gran % (42.2 - 75.2 %) 63.9 Lymphocytes % (20.5 - 51.1 %) 24.2 Monocytes % (1.7 - 9.3 %) 6.5 Eosinophils % (0 - 5 %) 5.0 Basophils % (0.0 - 2.0 %) 0.4 Absolute Granulocytes (1.4 - 6.5 /CUMM) 4.5 Absolute Lymphocytes (1.2 - 3.4 /CUMM) 1.7 Absolute Monocytes (0.10 - 0.60 /CUMM) 0.5 Absolute Eosinophils (0.0 - 0.7 /CUMM) 0.4 Absolute Basophils (0.0 - 0.2 /CUMM) 0 A/P; 52-year-old woman with past medical history most and then for end-stage renal disease on hemodialysis TTS, diabetes, peripheral vascular disease status post left lower extremity amputation who presents with altered mental status, hyperosmolar hyperglycemic state. Currently off of insulin gtt and on Sq insulin. Followed by endo. HD today. Levemir dose was increased this am per endo. Will monitor blood sugars. Pt has been cleared from psych stand point. Continue all current Mx. Possible Discharge tomorrow if blood sugars are stable. DVT px; hep sq.
--- NOTE | 2018-01-21 08:02 | PN- Diabetes ---
Assessment/Plan Diabetes Assessment: The patient feels better today. She is eating okay. Her blood sugars yesterday were 200 before breakfast, 260 before lunch, 231 before dinner, and 212 at bedtime. This morning her fingerstick blood sugar is 242. Plan: Suggest increase the patient's Levemir to 10 units twice a day. Continue present sliding scale NovoLog. Subjective Subjective: Feels improved Objective Last 24 Hrs of Vital Signs/I&O Vital Signs Date Time Temp Pulse Resp B/P B/P Pulse O2 O2 Flow FiO2 Mean Ox Delivery Rate 01/21 0528 97.8 71 22 148/78 98 Room Air 01/200 78 160/72 01/20 2240 78 160/82 01/20 2010 98.8 78 17 160/82 97 Room Air 01/20 1600 98.0 71 18 130/62 96 Room Air Room Air 01/20 0950 98.3 78 20 128/67 01/20 0950 98.3 78 20 128/67 Intake & Output 01/21 1600 01/21 0800 01/21 0000 Intake Total 250 720 Output Total 100 Balance 250 620 Intake, IV 10 Intake, Oral 240 720 Number 0 Bowel Movements Output, Urine 100 Patient 162 lb Weight Vital Signs Date Time Temp Pulse Resp B/P B/P Pulse O2 O2 Flow FiO2 Mean Ox Delivery Rate 01/21 0528 97.8 71 22 148/78 98 Room Air 01/200 78 160/72 01/20 2240 78 160/82 01/20 2010 98.8 78 17 160/82 97 Room Air 01/20 1600 98.0 71 18 130/62 96 Room Air Room Air 01/20 0950 98.3 78 20 128/67 01/20 0950 98.3 78 20 128/67 Intake & Output 01/21 1600 01/21 0800 01/21 0000 Intake Total 250 720 Output Total 100 Balance 250 620 Intake, IV 10 Intake, Oral 240 720 Number 0 Bowel Movements Output, Urine 100 Patient 162 lb Weight Current Medications: Current Medications Sig/Marcellus Start time Last Medication Dose Route Stop Time Status Admin Acetaminophen 650 MG ONCE ONE 01/21 445 DC 01/21 PO 01/21 044 044 Acetaminophen 650 MG ONCE ONE 01/20 0830 DC 01/20 PO 01/20 0831 0826 Aspirin Buffered 81 MG DAILY 01/19 1000 AC 01/20 PO 0950 Calcium Carbonate 500 MG WITH MEALS 01/20 1200 AC 01/20 PO 1632 Diltiazem HCl 180 MG BID 01/19 1000 AC 01/20 PO 2240 Epoetin Jonathan 3,000 UNIT TuTa 01/18 1518 DC 01/18 IV 1713 Epoetin Jonathan 2,000 UNIT TuTa 01/18 1516 DC 01/18 IV 1713 Furosemide 80 MG SuMoWeFr@1000 01/19 1000 AC 01/20 PO 0951 Haloperidol 0.5 MG TID 01/18 1600 DC 01/19 PO 2123 Haloperidol 1 MG Q4P PRN 01/18 1300 DC IM Heparin Sodium 5,000 UNIT Q8 01/20 1400 AC 01/21 (Porcine) SC 0448 Hydralazine HCl 50 MG BID 01/19 2200 AC 01/20 PO 2240 Insulin Aspart 0 TIDAC/HS 01/19 1200 AC 01/20 SC 1632 Insulin Detemir 8 UNITS BID 01/19 1000 AC 01/20 SC 2239 Losartan Potassium 50 MG BID 01/18 2200 AC 01/20 PO 2240 Multivitamins 1 TAB DAILY 01/20 1000 AC 01/20 PO 1051 Omeprazole 40 MG DAILY AC 01/19 0700 AC 01/21 PO 0448 Paricalcitol 2 MCG TuTa 01/18 1518 AC 01/18 IV 1714 Senna 187 MG AT BEDTIME NEED.. 01/20 1015 PO
--- NOTE | 2018-01-21 08:05 | Patient Discharge Instructions ---
Discharge Instructions General Discharge Information Special Instructions: Stop taking Gabapentin, continue all your other medications. Stay Hydrated, be sure to take your insulin and prescribed. Take your apidra insulin with the new sliding scale provided. On day of discharge take only 11 units of Tresiba, then resume your daily dose of 22 units. Follow up with your primary care provider and hemodialysis sessions after discharge. Acute Coronary Syndrome Inclusion Criteria At DC or during hospital stay patient has or had the following: ACS DIAGNOSIS No Discharge Core Measures Meds if any: Prescribed or Continued at Discharge Meds if any: NOT Prescribed or Continued at Discharge Congestive Heart Failure Inclusion Criteria At DC or during hospital stay patient has or had the following: CHF DIAGNOSIS No Discharge Core Measures Meds if any: Prescribed or Continued at Discharge Meds if any: NOT Prescribed or Continued at Discharge Cerebrovascular accident Inclusion Criteria At DC or during hospital stay patient has or had the following: CVA/TIA Diagnosis No Discharge Core Measures Meds if any: Prescribed or Continued at Discharge Meds if any: NOT Prescribed or Continued at Discharge Venous thromboembolism Inclusion Criteria VTE Diagnosis No VTE Type NONE VTE Confirmed by (Test) NONE Discharge Core Measures - Per Current guidelines, there needs to be overlap - treatment for the first 5 days of Warfarin therapy. - If discharged on Warfarin prior to 5 days of - overlap therapy, the patient will need to be - assessed for post discharge needs including - *Post discharge parental anticoagulation - *Warfarin and/or parental anticoagulation education - *Follow up date to check INR post discharge At least 5 days overlap therapy as Inpatient No Meds if any: Prescribed or Continued at Discharge Note: Overlap Therapy is Warfarin and Anticoagulant Meds if any: NOT Prescribed or Continued at Discharge
--- NOTE | 2018-01-21 08:56 | PN- Nephrology ---
Assessment/Plan Nephrology Assessment: Stable on dialsyis, over 3 kg above dry weight. Suggestion: UF 3 liters today with dialysis. Subjective Subjective: Patient undergoing dialysis, no new complaints. Objective Vital Signs and I&Os Vital Signs Date Time Temp Pulse Resp B/P B/P Pulse O2 O2 Flow FiO2 Mean Ox Delivery Rate 01/21 0528 97.8 71 22 148/78 98 Room Air 01/20 2240 78 160/72 01/20 2240 78 160/82 01/20 2010 98.8 78 17 160/82 97 Room Air 01/20 1600 98.0 71 18 130/62 96 Room Air Room Air 01/20 0950 98.3 78 20 128/67 01/20 0950 98.3 78 20 128/67 Intake & Output 01/21 1600 01/21 0400 01/20 1600 01/20 0400 01/19 1600 01/19 0400 Intake Total 250 720 400 960 490 230 Output Total 100 030 75 2358 Balance 250 620 300 960 480 -2813 Intake, IV 10 10 20 Intake, Oral 240 720 400 960 480 210 Number 0 1 Bowel Movements Output, Other 3000 Output, Urine 100 100 10 43 Patient 162 lb 169 lb 155 lb 154 lb Weight Weight Bed scale Measurement Method Physical Exam: NAD VS as above Lungs: clear CV: 2/6 RAKESH Abd: non-tender Exts: trace edema Neuro: A&O Current Medications: Current Medications Sig/Marcellus Start time Last Medication Dose Route Stop Time Status Admin Acetaminophen 650 MG ONCE ONE 01/21 0445 DC 01/21 PO 01/21 0446 0447 Aspirin Buffered 81 MG DAILY 01/19 1000 AC 01/20 PO 0950 Calcium Carbonate 500 MG WITH MEALS 01/20 1200 AC 01/20 PO 1632 Diltiazem HCl 180 MG BID 01/19 1000 AC 01/20 PO 2240 Epoetin Jonathan 3,000 UNIT TuThSa 01/18 1518 DC 01/18 IV 1713 Epoetin Jonathan 2,000 UNIT TuThSa 01/18 1516 DC 01/18 IV 1713 Furosemide 80 MG SuMoWeFr@1000 01/19 1000 AC 01/20 PO 0951 Haloperidol 0.5 MG TID 01/18 1600 DC 01/19 PO 2123 Haloperidol 1 MG Q4P PRN 01/18 1300 DC IM Heparin Sodium 5,000 UNIT Q8 01/20 1400 AC 02/20 (Porcine) SC 0448 Hydralazine HCl 50 MG BID 01/19 2200 AC 01/20 PO 2240 Insulin Aspart 0 TIDAC/HS 01/19 1200 AC 01/20 SC 1632 Insulin Detemir 8 UNITS BID 01/19 1000 AC 01/20 SC 2239 Losartan Potassium 50 MG BID 01/18 2200 AC 01/20 PO 2240 Multivitamins 1 TAB DAILY 01/20 1000 AC 01/20 PO 1051 Omeprazole 40 MG DAILY AC 01/19 0700 AC 01/21 PO 0448 Paricalcitol 2 MCG TuThSa 01/18 1518 AC 01/18 IV 1714 Senna 187 MG AT BEDTIME NEED.. 01/20 1015 AC PO Results Pertinent Lab Results: Laboratory Tests 01/20 01/19 0610 0545 Chemistry Sodium (137 - 145 mmol/L) 136 L 137 Potassium (3.5 - 5.1 mmol/L) 4.2 4.2 Chloride (98 - 107 mmol/L) 100 99 Carbon Dioxide (22 - 30 mmol/L) 22 24 Anion Gap (5 - 16) 15 14 BUN (7 - 17 mg/dL) 55 H 33 H Creatinine (0.5 - 1.0 mg/dL) 8.1 *H 6.1 *H Estimated GFR (>60 ml/min) 5 L 7 L BUN/Creatinine Ratio (7 - 25 %) 6.8 L 5.4 L Glucose (65 - 99 mg/dL) 210 H Hemoglobin A1c (4.2 - 5.8 %) Pending Magnesium (1.6 - 2.3 mg/dL) 2.3 Hematology CBC w Diff NO MAN DIFF REQ NO MAN DIFF REQ WBC (4.8 - 10.8 /CUMM) 8.5 9.1 RBC (4.20 - 5.40 /CUMM) 4.26 4.23 Hgb (12.0 - 16.0 G/DL) 13.4 13.3 Hct (37 - 47 %) 40.5 39.8 MCV (81.0 - 99.0 FL) 95.2 94.3 MCH (27.0 - 31.0 PG) 31.6 H 31.5 H MCHC (33.0 - 37.0 G/DL) 33.2 33.5 RDW (11.5 - 14.5 %) 15.4 H 15.5 H Plt Count (130 - 400 /CUMM) 316 276 MPV (7.4 - 10.4 FL) 7.4 7.4 Gran % (42.2 - 75.2 %) 58.9 71.1 Lymphocytes % (20.5 - 51.1 %) 27.3 18.1 L Monocytes % (1.7 - 9.3 %) 7.3 6.4 Eosinophils % (0 - 5 %) 6.1 H 3.7 Basophils % (0.0 - 2.0 %) 0.4 0.7 Absolute Granulocytes (1.4 - 6.5 /CUMM) 5.0 6.5 Absolute Lymphocytes (1.2 - 3.4 /CUMM) 2.3 1.7 Absolute Monocytes (0.10 - 0.60 /CUMM) 0.6 0.6 Absolute Eosinophils (0.0 - 0.7 /CUMM) 0.5 0.3 Absolute Basophils (0.0 - 0.2 /CUMM) 0 0.1 01/18 01/18 2200 0955 Chemistry Sodium (137 - 145 mmol/L) 139 137 Potassium (3.5 - 5.1 mmol/L) 3.9 4.7 Chloride (98 - 107 mmol/L) 101 99 Carbon Dioxide (22 - 30 mmol/L) 27 20 L Anion Gap (5 - 16) 12 18 H BUN (7 - 17 mg/dL) 29 H 63 H Creatinine (0.5 - 1.0 mg/dL) 4.9 H 9.0 *H Estimated GFR (>60 ml/min) 9 L 5 L Glucose (65 - 99 mg/dL) 121 H 81 Calcium (8.4 - 10.2 mg/dL) 9.7 9.7 Phosphorus (2.5 - 4.5 mg/dL) 3.7 4.6 H Magnesium (1.6 - 2.3 mg/dL) 2.0 2.2 Total Bilirubin (0.2 - 1.3 mg/dL) 0.7 0.5 AST (14 - 36 U/L) 32 13 L ALT (9 - 52 U/L) 32 27 Creatine Kinase (30 - 135 U/L) 76 Albumin (3.5 - 5.0 g/dL) 3.8 3.5 TSH (0.270 - 4.200 uIU/mL) 0.913 Free T4 (0.64 - 1.79 ng/dL) 1.10 Total T3 (0.97 - 1.69 ng/mL) 0.56 L Hematology CBC w Diff NO MAN DIFF REQ NO MAN DIFF REQ WBC (4.8 - 10.8 /CUMM) 10.8 9.7 RBC (4.20 - 5.40 /CUMM) 4.09 L 3.51 L Hgb (12.0 - 16.0 G/DL) 12.7 11.2 L Hct (37 - 47 %) 38.5 33.0 L MCV (81.0 - 99.0 FL) 94.2 93.9 MCH (27.0 - 31.0 PG) 31.1 H 32.0 H MCHC (33.0 - 37.0 G/DL) 33.0 34.1 RDW (11.5 - 14.5 %) 15.9 H 14.8 H Plt Count (130 - 400 /CUMM) 281 266 MPV (7.4 - 10.4 FL) 7.8 7.5 Gran % (42.2 - 75.2 %) 73.4 68.3 Lymphocytes % (20.5 - 51.1 %) 17.3 L 24.0 Monocytes % (1.7 - 9.3 %) 6.3 6.5 Eosinophils % (0 - 5 %) 2.6 0.7 Basophils % (0.0 - 2.0 %) 0.4 0.5 Absolute Granulocytes (1.4 - 6.5 /CUMM) 7.9 H 6.6 H Absolute Lymphocytes (1.2 - 3.4 /CUMM) 1.9 2.3 Absolute Monocytes (0.10 - 0.60 /CUMM) 0.7 H 0.6 Absolute Eosinophils (0.0 - 0.7 /CUMM) 0.3 0.1 Absolute Basophils (0.0 - 0.2 /CUMM) 0 0
[2018-01-21 09:37] LABS: ABSOLUTE BASOPHIL COUNT 0 /CUMM (0.0-0.2); ABSOLUTE EOSINOPHIL COUNT 0.4 /CUMM (0.0-0.7); ABSOLUTE GRANULOCYTE CT 4.5 /CUMM (1.4-6.5); ABSOLUTE LYMPH COUNT 1.7 /CUMM (1.2-3.4); ABSOLUTE MONOCYTE COUNT 0.5 /CUMM (0.10-0.60); BASOPHIL % 0.4 % (0.0-2.0); GRANULOCYTE % 63.9 % (42.2-75.2); HEMATOCRIT 37.6 % (37-47); MEAN CORPUSCULAR HGB 31.5 PG (27.0-31.0); MEAN CORPUSCULAR HGB CONC 33.6 G/DL (33.0-37.0); MEAN CORPUSCULAR VOLUME 93.7 FL (81.0-99.0); MEAN PLATELET VOLUME 8.1 FL (7.4-10.4); PLATELET COUNT 315 /CUMM (130-400); RED BLOOD CELL CT 4.02 /CUMM (4.20-5.40); WHITE BLOOD CELL COUNT 7.1 /CUMM (4.8-10.8)
[2018-01-21 14:17] VITALS: BP 150/72
[2018-01-21 22:44] VITALS: BP 134/70
[2018-01-22 06:14] VITALS: BP 112/60
--- NOTE | 2018-01-22 07:53 | PN- Diabetes ---
Assessment/Plan Diabetes Assessment: Aria feels improved. She had dialysis yesterday. Her sugars were high during the day yesterday. However the patient ate her breakfast at dialysis and this male was not covered with NovoLog. Her fasting blood sugar this morning before breakfast by fingerstick is 132. Plan: Suggest continue the present insulin. If the patient goes home as mentioned in the note yesterday she should reduce her dose of Tresiiba tonight to 11 units as she will have Levemir on board from this morning. Tomorrow she can resume her usual dose of Tresiiba 22 units. I have mentioned to her that she needs to check her sugar at least 4 times a day and take her Apidra which she has at home before each meal. If her sugars are high she needs to call her diabetes doctor right away. Patient would also benefit from having a continuous blood glucose monitor such as the Dexcom. Subjective Subjective: Feels okay Review of Systems Constitutional: Denies: chills, fever. Cardiovascular: Denies: chest pain. Respiratory: Denies: cough, short of breath. Gastrointestinal: Denies: abdominal pain, nausea, vomiting. Objective Last 24 Hrs of Vital Signs/I&O Vital Signs Date Time Temp Pulse Resp B/P B/P Pulse O2 O2 Flow FiO2 Mean Ox Delivery Rate 01/22 0614 98.0 63 20 112/60 97 Room Air 01/21 2244 98.5 73 18 134/70 97 Room Air 01/21 2146 73 134/70 01/21 214 73 134/70 01/21 1657 150/72 01/21 1417 98.5 81 20 150/72 97 Room Air 01/21 1308 131/66 Intake & Output 01/22 0800 01/22 0000 01/21 1600 Intake Total 1380 Output Total 0 Balance 1380 Intake, IV 0 Intake, Oral 1380 Number 0 Bowel Movements Output, Urine 0 Patient 151 lb 162 lb Weight Vital Signs Date Time Temp Pulse Resp B/P B/P Pulse O2 O2 Flow FiO2 Mean Ox Delivery Rate 01/22 0614 98.0 63 20 112/60 97 Room Air 01/21 2244 98.5 73 18 134/70 97 Room Air 01/21 2146 73 134/70 01/21 2145 73 134/70 01/21 1657 150/72 01/21 1417 98.5 81 20 150/72 97 Room Air 01/21 1308 131/66 Intake & Output 01/22 0800 01/22 0000 01/21 1600 Intake Total 1380 Output Total 0 Balance 1380 Intake, IV 0 Intake, Oral 1380 Number 0 Bowel Movements Output, Urine 0 Patient 151 lb 162 lb Weight Physical Exam General Appearance: alert, awake, comfortable Head: normal appearance Respiratory: normal breath sounds Cardiovascular: regular rate/rhythm Extremities: normal inspection Current Medications: Current Medications Sig/Marcellus Start time Last Medication Dose Route Stop Time Status Admin Acetaminophen 650 MG Q4P PRN 01/21 2130 AC 01/22 PO 0638 Acetaminophen 650 MG ONCE ONE 01/21 1430 DC 01/21 PO 01/21 1431 1422 Aspirin Buffered 81 MG DAILY 01/19 1000 AC 01/21 PO 1308 Calcium Carbonate 500 MG WITH MEALS 01/20 1200 AC 01/21 PO 1657 Diltiazem HCl 180 MG BID 01/19 1000 AC 01/21 PO 2145 Epoetin Jonathan 2,000 UNIT PER PROTOCL PRN 01/21 1000 CAN IV Epoetin Jonathan 3,000 UNIT PER PROTOCL PRN 01/21 0945 CAN IV Furosemide 80 MG SuMoWeFr@1000 01/19 1000 AC 01/20 PO 0951 Heparin Sodium 5,000 UNIT Q8 01/20 1400 AC 01/22 (Porcine) SC 0638 Hydralazine HCl 50 MG BID 01/19 2200 AC 01/21 PO 2145 Insulin Aspart 0 TIDAC/HS 01/19 1200 AC 01/21 SC 2142 Insulin Detemir 10 UNITS BID 01/21 2200 AC 01/21 SC 2142 Insulin Detemir 8 UNITS BID 01/19 1000 DC 01/20 SC 2239 Losartan Potassium 50 MG BID 01/18 2200 AC 01/21 PO 2146 Multivitamins 1 TAB DAILY 01/20 1000 AC 01/21 PO 1657 Omeprazole 40 MG DAILY AC 01/19 0700 AC 01/22 PO 0638 Paricalcitol 2 MCG PER PROTOCL PRN 01/21 1000 CAN IV Paricalcitol 2 MCG TuThSa 01/18 1518 AC 01/18 IV 1714 Patient Medication 1 ED ONE ONE 01/21 1645 DC Teaching ED 01/21 1646 Senna 187 MG AT BEDTIME NEED.. 01/20 1015 AC PO Findings Pertinent Lab/Pedro Results: Laboratory Tests 01/21 0840 Chemistry Sodium (137 - 145 mmol/L) 133 L Potassium (3.5 - 5.1 mmol/L) 4.7 Chloride (98 - 107 mmol/L) 96 L Carbon Dioxide (22 - 30 mmol/L) 19 L Anion Gap (5 - 16) 19 H BUN (7 - 17 mg/dL) 72 H Creatinine (0.5 - 1.0 mg/dL) 9.9 *H Estimated GFR (>60 ml/min) 4 L BUN/Creatinine Ratio (7 - 25 %) 7.3 Glucose (65 - 99 mg/dL) 304 H Calcium (8.4 - 10.2 mg/dL) 9.1 Phosphorus (2.5 - 4.5 mg/dL) 7.5 H Hematology CBC w Diff NO MAN DIFF REQ WBC (4.8 - 10.8 /CUMM) 7.1 RBC (4.20 - 5.40 /CUMM) 4.02 L Hgb (12.0 - 16.0 G/DL) 12.7 Hct (37 - 47 %) 37.6 MCV (81.0 - 99.0 FL) 93.7 MCH (27.0 - 31.0 PG) 31.5 H MCHC (33.0 - 37.0 G/DL) 33.6 RDW (11.5 - 14.5 %) 15.0 H Plt Count (130 - 400 /CUMM) 315 MPV (7.4 - 10.4 FL) 8.1 Gran % (42.2 - 75.2 %) 63.9 Lymphocytes % (20.5 - 51.1 %) 24.2 Monocytes % (1.7 - 9.3 %) 6.5 Eosinophils % (0 - 5 %) 5.0 Basophils % (0.0 - 2.0 %) 0.4 Absolute Granulocytes (1.4 - 6.5 /CUMM) 4.5 Absolute Lymphocytes (1.2 - 3.4 /CUMM) 1.7 Absolute Monocytes (0.10 - 0.60 /CUMM) 0.5 Absolute Eosinophils (0.0 - 0.7 /CUMM) 0.4 Absolute Basophils (0.0 - 0.2 /CUMM) 0
--- NOTE | 2018-01-22 07:57 | PN- Housestaff ---
Subjective Follow-up For: HHS ESRD on HD IDDM AMS Subjective: Patient seen and examined. She is seen sitting upright in bed resting comfortably. She appears to be in no acute distress. She reports feeling well and is eager to go home. She is pleassant with good eye contact and normal affect, she is oriented to person, place, and time. Review of Systems Constitutional: Reports: see HPI. Objective Last 24 Hrs of Vital Signs/I&O Vital Signs Date Time Temp Pulse Resp B/P B/P Pulse O2 O2 Flow FiO2 Mean Ox Delivery Rate 01/22 0940 69 168/80 01/22 0614 98.0 63 20 112/60 97 Room Air 01/21 2244 98.5 73 18 134/70 97 Room Air 01/21 2146 73 134/70 01/21 2145 73 134/70 01/21 1657 150/72 01/21 1417 98.5 81 20 150/72 97 Room Air 01/21 1308 131/66 Intake & Output 01/22 1600 01/22 0800 01/22 0000 Intake Total Output Total Balance Patient 68.492 kg Weight Physical Exam General Appearance: Alert, Oriented X3, Cooperative, No Acute Distress Other Physical Findings: GEN: well developed, thin middle aged woman in no acute distress HEENT: NCAT, PERRL, EOMI, anicteric sclera NECK: Supple, no JVD, trachea midline CARD: Normal S1/S2 w/o m/g/r; RRR PULM: CTA bilaterally ABD: Soft, NT, ND, BS+ NEURO: Awake and alert, CN II-XII grossly intact EXT: Left BKA, normal pulse, no edema Current Medications: Current Medications Sig/Marcellus Start time Last Medication Dose Route Stop Time Status Admin Acetaminophen 650 MG Q4P PRN 01/21 2130 AC 01/22 PO 0638 Acetaminophen 650 MG ONCE ONE 01/21 1430 DC 01/21 PO 01/21 1431 1422 Aspirin Buffered 81 MG DAILY 01/19 1000 AC 01/22 PO 0941 Calcium Carbonate 500 MG WITH MEALS 01/20 1200 AC 01/22 PO 0800 Diltiazem HCl 180 MG BID 01/19 1000 AC 01/21 PO 2145 Furosemide 80 MG SuMoWeFr@1000 01/19 1000 AC 01/22 PO 0941 Heparin Sodium 5,000 UNIT Q8 01/20 1400 AC 01/22 (Porcine) SC 0638 Hydralazine HCl 50 MG BID 01/19 2200 AC 01/21 PO 2145 Insulin Aspart 0 TIDAC/HS 01/19 1200 AC 01/22 SC 0800 Insulin Detemir 10 UNITS BID 01/21 2200 AC 01/22 SC 0945 Insulin Detemir 8 UNITS BID 01/19 1000 DC 01/20 SC 2239 Losartan Potassium 50 MG BID 01/18 2200 AC 01/22 PO 0940 Multivitamins 1 TAB DAILY 01/20 1000 AC 01/21 PO 1657 Omeprazole 40 MG DAILY AC 01/19 0700 AC 01/22 PO 0638 Paricalcitol 2 MCG TuThSa 01/18 1518 AC 01/18 IV 1714 Patient Medication 1 ED ONE ONE 01/21 1645 DC Teaching ED 01/21 1646 Senna 187 MG AT BEDTIME NEED.. 01/20 1015 AC PO Assessment/Plan Assessment: 52 year old woman with multiple medical problems seen for evaluation of altered mental status and found to have significantly elevated blood sugar for which she was admitted to the ICU for HHS. Patients fingerstickes were in the 300s yesterday but this morning were within acceptable range. She is being discharged to home today with instruction to restart her home insulin regimen with the new sliding scale. She is to take only half her tresiba today as she received levemir this morning. She is instructed to stop taking Gabapentin. Problem List -Altered mental status, probable hyperglycemic delerium; resolved -Hyperosmolar hyperglycemic state, resolved -Pseudohyponatremia, resolved -ESRD on HD (, , ) -Insulin-dependent diabetes mellitus -PVD with LLE BKA -Hypertension Plan -Discharge to home -Hemodialysis (Saturday, , Saturday) -Avoid Benzodiazpenes -Accuchecks TIDAC/HS with Novolog SSI -Levemir increased to 10 units BID -Continue omeprazole, aspirin, furosemide, -Continue losartan, hydralazine -Continue paricalcitol, epoetin -Hold Gabapentin -Consults with endocrinology, nephrology and psychiatry -Follow up cultures & sensitivites -Monitor electrolytes -Pain control PRN -Renal Diet -DVT PPx with ALPS -FULL CODE Problem List: 1. Hyperglycemic hyperosmolar nonketotic coma Pain Ratin Pain Location: None Pain Goal: Remain pain free Pain Plan: See assessment Tomorrow's Labs & Rationales: None
--- NOTE | 2018-01-22 09:39 | PN- Nephrology ---
Assessment/Plan Nephrology Assessment: Stable from renal standpoint. Suggestion: Home today and regular outpatient dialysis tomorrow AM. Subjective Subjective: Feels well, states she is going home today. No issues with dialysis yesteday. Objective Vital Signs and I&Os Vital Signs Date Time Temp Pulse Resp B/P B/P Pulse O2 O2 Flow FiO2 Mean Ox Delivery Rate 01/22 0614 98.0 63 20 112/60 97 Room Air 01/21 2244 98.5 73 18 134/70 97 Room Air 01/21 2146 73 134/70 01/21 2145 73 134/70 01/21 1657 150/72 01/21 1417 98.5 81 20 150/72 97 Room Air 01/21 1308 131/66 Intake & Output 01/22 1600 01/22 0400 01/21 1600 01/21 0400 01/20 1600 01/20 0400 Intake Total 1630 720 400 960 Output Total 0 100 100 Balance 1630 620 300 960 Intake, IV 10 Intake, Oral 1620 720 400 960 Number 0 Bowel Movements Output, Urine 0 100 100 Patient 151 lb 162 lb 169 lb Weight Physical Exam: NAD VS as above Lungs: clear CV: 2/6 RAKESH Abd: non-tender Exts: no edema Neuro: A&O Current Medications: Current Medications Sig/Marcellus Start time Last Medication Dose Route Stop Time Status Admin Acetaminophen 650 MG Q4P PRN 01/21 2130 AC 01/22 PO 0638 Acetaminophen 650 MG ONCE ONE 01/21 1430 DC 01/21 PO 01/21 1431 1422 Aspirin Buffered 81 MG DAILY 01/19 1000 AC 01/21 PO 1308 Calcium Carbonate 500 MG WITH MEALS 01/20 1200 AC 01/21 PO 1657 Diltiazem HCl 180 MG BID 01/19 1000 AC 01/21 PO 2145 Epoetin Jonathan 2,000 UNIT PER PROTOCL PRN 01/21 1000 CAN IV Epoetin Jonathan 3,000 UNIT PER PROTOCL PRN 01/21 0945 CAN IV Furosemide 80 MG SuMoWeFr@1000 01/19 1000 AC 01/20 PO 0951 Heparin Sodium 5,000 UNIT Q8 01/20 1400 AC 01/22 (Porcine) SC 0638 Hydralazine HCl 50 MG BID 01/19 2200 AC 01/21 PO 2145 Insulin Aspart 0 TIDAC/HS 01/19 1200 AC 01/21 SC 2142 Insulin Detemir 10 UNITS BID 01/21 2200 AC 01/21 SC 214 Insulin Detemir 8 UNITS BID 01/19 1000 DC 01/20 SC 2239 Losartan Potassium 50 MG BID 01/18 2200 AC 01/21 PO 2146 Multivitamins 1 TAB DAILY 01/20 1000 AC 01/21 PO 1657 Omeprazole 40 MG DAILY AC 01/19 0700 AC 01/22 PO 0638 Paricalcitol 2 MCG PER PROTOCL PRN 01/21 1000 CAN IV Paricalcitol 2 MCG TuThSa 01/18 1518 AC 01/18 IV 1714 Patient Medication 1 ED ONE ONE 01/21 1645 DC Teaching ED 01/21 1646 Senna 187 MG AT BEDTIME NEED.. 01/20 1015 AC PO Results Pertinent Lab Results: Laboratory Tests 01/21 01/21 0840 0500 Chemistry Sodium (137 - 145 mmol/L) 133 L Cancelled Potassium (3.5 - 5.1 mmol/L) 4.7 Cancelled Chloride (98 - 107 mmol/L) 96 L Cancelled Carbon Dioxide (22 - 30 mmol/L) 19 L Cancelled Anion Gap (5 - 16) 19 H Cancelled BUN (7 - 17 mg/dL) 72 H Cancelled Creatinine (0.5 - 1.0 mg/dL) 9.9 *H Cancelled Estimated GFR (>60 ml/min) 4 L BUN/Creatinine Ratio (7 - 25 %) 7.3 Cancelled Glucose (65 - 99 mg/dL) 304 H Calcium (8.4 - 10.2 mg/dL) 9.1 Phosphorus (2.5 - 4.5 mg/dL) 7.5 H Cancelled Magnesium Cancelled Hematology CBC w Diff NO MAN DIFF REQ Cancelled WBC (4.8 - 10.8 /CUMM) 7.1 Cancelled RBC (4.20 - 5.40 /CUMM) 4.02 L Cancelled Hgb (12.0 - 16.0 G/DL) 12.7 Cancelled Hct (37 - 47 %) 37.6 Cancelled MCV (81.0 - 99.0 FL) 93.7 Cancelled MCH (27.0 - 31.0 PG) 31.5 H Cancelled MCHC (33.0 - 37.0 G/DL) 33.6 Cancelled RDW (11.5 - 14.5 %) 15.0 H Cancelled Plt Count (130 - 400 /CUMM) 315 Cancelled MPV (7.4 - 10.4 FL) 8.1 Cancelled Gran % (42.2 - 75.2 %) 63.9 Lymphocytes % (20.5 - 51.1 %) 24.2 Monocytes % (1.7 - 9.3 %) 6.5 Eosinophils % (0 - 5 %) 5.0 Basophils % (0.0 - 2.0 %) 0.4 Absolute Granulocytes (1.4 - 6.5 /CUMM) 4.5 Absolute Lymphocytes (1.2 - 3.4 /CUMM) 1.7 Absolute Monocytes (0.10 - 0.60 /CUMM) 0.5 Absolute Eosinophils (0.0 - 0.7 /CUMM) 0.4 Absolute Basophils (0.0 - 0.2 /CUMM) 0 01/20 0610 Chemistry Sodium (137 - 145 mmol/L) 136 L Potassium (3.5 - 5.1 mmol/L) 4.2 Chloride (98 - 107 mmol/L) 100 Carbon Dioxide (22 - 30 mmol/L) 22 Anion Gap (5 - 16) 15 BUN (7 - 17 mg/dL) 55 H Creatinine (0.5 - 1.0 mg/dL) 8.1 *H Estimated GFR (>60 ml/min) 5 L BUN/Creatinine Ratio (7 - 25 %) 6.8 L Hemoglobin A1c (4.2 - 5.8 %) 10.5 H Magnesium (1.6 - 2.3 mg/dL) 2.3 Hematology CBC w Diff NO MAN DIFF REQ WBC (4.8 - 10.8 /CUMM) 8.5 RBC (4.20 - 5.40 /CUMM) 4.26 Hgb (12.0 - 16.0 G/DL) 13.4 Hct (37 - 47 %) 40.5 MCV (81.0 - 99.0 FL) 95.2 MCH (27.0 - 31.0 PG) 31.6 H MCHC (33.0 - 37.0 G/DL) 33.2 RDW (11.5 - 14.5 %) 15.4 H Plt Count (130 - 400 /CUMM) 316 MPV (7.4 - 10.4 FL) 7.4 Gran % (42.2 - 75.2 %) 58.9 Lymphocytes % (20.5 - 51.1 %) 27.3 Monocytes % (1.7 - 9.3 %) 7.3 Eosinophils % (0 - 5 %) 6.1 H Basophils % (0.0 - 2.0 %) 0.4 Absolute Granulocytes (1.4 - 6.5 /CUMM) 5.0 Absolute Lymphocytes (1.2 - 3.4 /CUMM) 2.3 Absolute Monocytes (0.10 - 0.60 /CUMM) 0.6 Absolute Eosinophils (0.0 - 0.7 /CUMM) 0.5 Absolute Basophils (0.0 - 0.2 /CUMM) 0
--- NOTE | 2018-01-22 11:46 | PN- Att Addend ---
Attending Addendum Attending Brief Note Patient seen and examined, overall doing well. Blood sugars are better controlled. Patient herself denies any complaints. She did have slightly high blood pressure this morning but she is ordered Cardizem as well as hydralazine for her blood pressure control. Patient otherwise stable for discharge home today. As discussed with Dr. Iglesias, she will take half the dose of her long- acting insulin when she goes home today and resume her original regimen starting tomorrow. She will continue to take her short-acting insulin. Patient to follow-up with her seo coordinator as well as her other doctors as an outpatient. At this point we will continue to hold her gabapentin as patient did come in with altered mental state. Patient otherwise medically stable for discharge home today with home services.
--- NOTE | 2018-01-22 11:56 | Discharge Summary ---
Visit Information Visit Dates Admission Date: 01/18/18 Discharge Date: 01/22/18 Hospital Course Course Attending Physician: Radha Draper MD Primary Care Physician: Unknown Consulting Request: 1 Consulting Specialty: Critical Care Consulting Request: 2 Consulting Specialty: Endocrinology Consulting Request: 3 Consulting Specialty: Psychiatry Hospital Course: 52-year-old woman with past medical history of insulin-dependent diabetes mellitus, peripheral vascular disease status post left lower knee amputation, end-stage renal disease on hemodialysis brought in by ambulance for elevated blood glucose and altered mental status. Patient reportedly was very agitated the days preceding the admission and became combative when EMS evaluated the patient. For further evaluation of these findings patient was taken to the [facility]. ED course -Vitals: Temp 100.6, HR 101, RR 18, BP 199/87, O2 95% on room air -CBC: WBC 7.5, Hgb/HCT 11.4/33.8, platelet 227 -BMP: Sodium 122, potassium 5.5, chloride 87, CO2 17, urea 59, creatinine 8.1, anion gap 19, glucose 992 -LFT: Within normal limits -Miscellaneous: Serum osmolality 338, lactic acid 0.8, troponin I <0.01, serum alcohol <10, positive acetone -VBG: PH 7.25 -Urine toxicology: Negative -Urinalysis: rare bacteria, routine 100, urine glucose >1000 -CXR: Mild increased central pulmonary vascularity without focal consolidation -EKG: NSR, HR 97 -CT head without IV contrast: No acute intracranial pathology -CT chest/abdomen/pelvis: Trace left pleural effusion, cardiomegaly, nonspecific bilateral perinephric trending, trace pelvic free fluid, borderline-enlarged retroperitoneal lymph nodes Problem list on admission -Altered mental status, probable hyperglycemic delirium -Hyperosmolar hyperglycemic state -Insulin-dependent diabetes mellitus -Endstage renal disease on hemodialysis (Saturday, , Saturday) -Hypertension -Peripheral vascular disease status post left below-knee amputation Hospital course Patient was admitted to the intensive care unit for further evaluation. Endocrinology consult was placed She was started on an insulin drip with every hour fingersticks. Patient was started on subcutaneous insulin sliding scale and long-acting insulin after her blood glucose levels returned to normal ranges. Because of her agitation patient was maintained 4-point hard restraints and given Haldol as needed. Gabapentin was held for concern of its possible contribution to her current mental state. A lumbar puncture was performed to rule out any possible infectious process contributing to her delirium which subsequently was found to be negative, including an HSV PCR. Psychiatry consult was placed whom agreed with our initial assessment and advocated for the use of Haldol instead of benzodiazepines. Patient dramatically improved in her cognition and mental status over several days with the use of scheduled oral doses of Haldol. Patient was reevaluated psychiatry and determined not to be a danger to herself without suicidal/psychotic/delirious ideation. 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 She was instructed to stop taking gabapentin. Nephrology was consulted for patient's history of ESRD for nourishment of her hemodialysis sessions which occurred uneventfully. Allergies: Coded Allergies: No Known Allergies (01/17/18) Significant Procedures: SERVICE DATE: 01/17/18 EXAM TYPE: RAD - XRY-PORTABLE CHEST XRAY IMPRESSION: Mild increased central pulmonary vascularity. No focal consolidation. SERVICE DATE: 01/17/18 EXAM TYPE: CAT - CT ABD & PELVIS W/O IV CONTRAS; CT CHEST WO IV CONTRAST EXAM: NONCONTRAST CT OF THE CHEST; NONCONTRAST CT OF THE ABDOMEN AND PELVIS IMPRESSION: 1. Questionable trace left pleural effusion. 2. Cardiomegaly. 3. Nonspecific bilateral perinephric stranding; this is of uncertain significance and could represent a chronic finding. No hydronephrosis or obstructing calculus. 4. Trace pelvic free fluid. 5. Borderline enlarged retroperitoneal lymph nodes, nonspecific. SERVICE DATE: 01/17/18 EXAM TYPE: CAT - CT HEAD WO IV CONTRAST IMPRESSION: No acute intracranial pathology identified. SERVICE DATE: 01/18/18 EXAM TYPE: CARD - ECHOCARDIOGRAM CONCLUSIONS Normal global left ventricular size, wall thickness, systolic function with no obvious regional wall motion abnormalities. Left ventricular ejection fraction is estimated at > 55 %. Normal right ventricular size and function. Unable to estimate the right ventricular systolic pressure. No pericardial effusion. Disposition Summary Disposition Principal Diagnosis: Hyperosmolar hyperglycemic state Altered mental status, toxic metabolic encephalopathy Additional Diagnosis: as above Discharge Disposition: home health services Discharge Instructions General Discharge Information Code Status: Full Code Patient's Diet: Diabetic/Renal Diet Patient's Activity: Per PT assessment Follow-Up Instructions/Appts: Stop taking Gabapentin, continue all your other medications. Stay Hydrated, be sure to take your insulin and prescribed. Take your apidra insulin with the new sliding scale provided. On day of discharge take only 11 units of Tresiba, then resume your daily dose of 22 units. Follow up with your primary care provider and hemodialysis sessions after discharge. Medications at Discharge Discharge Medications: Stop taking the following medications: Cephalexin (Cephalexin) 500 MG CAPSULE ORAL 4 TIMES A DAY Gabapentin (Neurontin) 100 MG CAPSULE ORAL TWICE DAILY Continue taking these medications: Aspirin (Ecotrin*) 81 MG TABLET. 1 Tablet ORAL DAILY Comments: Last Taken:01/22/18 Time:9:41 AM Diltiazem HCl (Diltiazem 24HR ER) 180 MG CAP.ER.24H 1 Capsule ORAL TWICE DAILY Comments: Last Taken:01/21/18 Time:9:45 PM Hydralazine HCl (Hydralazine HCl) 50 MG TABLET 1 Tablet ORAL TWICE DAILY Comments: Last Taken:01/21/18 Time:9:45 PM Insulin Glulisine (Apidra Solostar) 100 UNIT/ML INSULN.PEN 70 Units Inject into fatty tissue DAILY Instructions: Sugar Insulin 80-150 4 151-200 5 201-250 6 251-300 7 301-350 8 351-400 9 > 400 9 + Call Furosemide (Lasix) 80 MG TABLET 1 Tablet ORAL Comments: Last Taken:01/22/18 Time:9:41 AM Pantoprazole Sodium (Protonix) 40 MG TABLET. 1 Tablet ORAL DAILY Comments: NOT GIVEN IN HOSPITAL Vit B Cmplx 3/FA/Vit C/Biotin ([employer] Tablet) 1 MG-60 MG-300 MCG TABLET 1 Tablet ORAL DAILY Losartan Potassium (Cozaar) 50 MG TABLET 1 Tablet ORAL TWICE DAILY Comments: Last Taken:01/22/18 Time:9:40 AM Insulin Degludec (Tresiba Flextouch U-100) 100 UNIT/ML (3 ML) INSULN.PEN 22 Units Inject into fatty tissue DAILY Comments: NOT GIVEN IN HOSPITAL Copies To: Kelsie GARNICA,Vadim Coe
[2018-01-22 13:01] VITALS: BP 170/82
== END 2018-01-22 13:21 | disposition home health service (06) | DRG 637 ==
LOC: ERH 22:13 → ERHI 01-18 00:34 → CRI 01-18 00:34 → 2NB 01-18 00:34 → ENRESERV 01-18 02:08 → CRI 01-18 04:06 → 2NB 01-20 20:00 → ENPENDDIS 01-22 09:51 → ENTRNSPT 01-22 13:10 → EDTRNSPTSTS 01-22 13:12 → EDTRNSPT 01-22 13:12 → 2NB 01-22 13:21 → DELTRNSPT 01-22 13:25
PROVIDERS: Dermatology; Internal Medicine; Internal Medicine Interventional Cardiology; Internal Medicine Nephrology; Physician Assistant Medical
PROC: 009U3ZX Drainage of Spinal Canal, Percutaneous Approach, Diagnostic (ICD-10-PCS; principal; 2018-01-17)
DX: E11.00 Type 2 diabetes mellitus with hyperosmolarity without nonketotic hyperglycemic-hyperosmolar coma (NKHHC) (principal); N18.6 End stage renal disease; E87.2 Acidosis; E11.22 Type 2 diabetes mellitus with diabetic chronic kidney disease; E11.40 Type 2 diabetes mellitus with diabetic neuropathy, unspecified; I12.0 Hypertensive chronic kidney disease with stage 5 chronic kidney disease or end stage renal disease; F05 Delirium due to known physiological condition; E11.65 Type 2 diabetes mellitus with hyperglycemia; E87.5 Hyperkalemia; Z79.4 Long term (current) use of insulin; Z79.82 Long term (current) use of aspirin; Z99.2 Dependence on renal dialysis; Z89.512 Acquired absence of left leg below knee; Z78.1 Physical restraint status; R45.1 Restlessness and agitation; I73.9 Peripheral vascular disease, unspecified
CPT/HCPCS: 2NBSP; 87070; 87205; CCU; 36415; 71045; 74176; 80307; 81001; 82436; 87040; 87804; 87804-59; 88305; 93005; 93010; 93306; 96365; 96366; 96374; 96375; 99233; G0480; J0131; J0360; J0713; J0885; J1630; J1644; J1815; J2060; J2501; J3370

== ENCOUNTER 2018-07-25 11:15 | Inpatient (IN) | payer OTHER, MEDICARE ==
[~2018-07-25] VITALS: Ht 170.2 cm; Wt 70.8 kg
[~2018-07-25 11:15] MED LIST: APIDRA SOL100 UNIT/1 SC; ASPIRIN EC81 M1 PO; CEPHALEXIN500 M3 PO; COZAAR50 M1 PO; DILTIAZEM 24HR180 MG PO; HYDRALAZINE HCL50 M1 PO; LASIX80 M1 PO; NEURONTIN100 M1 PO; PROTONIX40 M3 PO; TRESIBA FL100 UNIT/1 SC; VP-VITE RX TAB1 EACH PO
--- NOTE | 2018-07-25 11:23 | ED GENERAL ADULT ---
History of Present Illness General Chief Complaint: Skin Rash/ Abcess Stated Complaint: PT HAS A ABSCESS ON THE BUTTOCK Source: patient Exam Limitations: no limitations Vital Signs & Intake/Output Vital Signs & Intake/Output Vital Signs Date Time Temp Pulse Resp B/P B/P Pulse O2 O2 Flow FiO2 Mean Ox Delivery Rate 07/25 1557 98.8 80 15 141/65 98 Room Air 07/25 1300 98.5 84 16 114/56 95 Room Air 07/25 1121 100.8 07/25 1118 100.8 101 18 147/67 98 Room Air Allergies Coded Allergies: No Known Allergies (01/17/18) Reconcile Medications Diltiazem HCl (Diltiazem 24HR ER) 180 MG CAP.ER.24H 1 CAP PO BID HYPERTENSION (Reported) Furosemide (Lasix) 80 MG TABLET 1 TAB PO DIURETIC (Reported) Hydralazine HCl 50 MG TABLET 1 TAB PO BID Hypertension (Reported) Insulin Degludec (Tresiba Flextouch U-100) 100 UNIT/ML (3 ML) INSULN.PEN 22 UNITS SC DAILY DM (Reported) Insulin Glulisine (Apidra Solostar) 100 UNIT/ML INSULN.PEN 70 UNITS SC DAILY DM (Reported) Sugar Insulin 80-150 4 151-200 5 201-250 6 251-300 7 301-350 8 351-400 9 > 400 9 + Call Losartan Potassium (Cozaar) 50 MG TABLET 1 TAB PO BID BP (Reported) Pantoprazole Sodium (Protonix) 40 MG TABLET.DR 1 TAB PO DAILY GI (Reported) Vit B Cmplx 3/FA/Vit C/Biotin (Business Process Representative[facility] Tablet) 1 MG-60 MG-300 MCG TABLET 1 TAB PO DAILY SUPPLEMENT (Reported) Triage Note: 53 YO FEMALE TO TRIAGE FOR EVAL OF ABCESS ON BUTTOCKS X1 WEEK. PT TEMP 100.8 IN TRAIGE. PT IS A DIALYSIS PT, L ARM RESTRICTED. Triage Nurses Notes Reviewed? yes Onset: Gradual Duration: day(s): Timing: constant HPI: 53 y/o female with a h/o HTN, diabetes, ESRD (on HD T/, last dialyzed yesterday), left BKA presenting with abscess to right buttock x1 week. Denies purulent drainage. Has been using warm compresses to the area without relief. Yesterday began to feel subjective fevers, malaise, fatigue, decreased appetitie , and nausea. Denies vomiting. No documented temps at home, but noted to be febrile to 100.8F on arrival to the ED. No other infectious symptoms - no URI symptoms, cough, CP, SOB, abd pain, vomiting, diarrhea, dysuria. No trauma to the area. (Maria Del Rosario Dixon) Past History Travel History Traveled to [place] past 21 day No Medical History Any Pertinent Medical History? see below for history Neurological: NONE EENT: NONE Cardiovascular: hypertension Respiratory: NONE Gastrointestinal: NONE Hepatic: NONE Renal: ESRD on HD Musculoskeletal: Left BKA Psychiatric: NONE Endocrine: diabetes History of MRSA: No History of VRE: No History of CDIFF: No Surgical History Surgical History: none (LLE amputation), unobtainable Psychosocial History What is your primary language Wallisian Tobacco Use: Never used Family History Hx Contributory? No (Maria Del Rosario Dixon) Review of Systems Review of Systems Constitutional: Reports: no symptoms. EENTM: Reports: no symptoms. Respiratory: Reports: no symptoms. Cardiovascular: Reports: no symptoms. GI: Reports: no symptoms. Genitourinary: Reports: no symptoms. Musculoskeletal: Reports: no symptoms. Skin: Reports: see HPI. Neurological/Psychological: Reports: no symptoms. Hematologic/Endocrine: Reports: no symptoms. Immunologic/Allergic: Reports: no symptoms. All Other Systems: Reviewed and Negative (Maria Del Rosario Dixon) Physical Exam Physical Exam General Appearance: well developed/nourished, no apparent distress, alert, awake Comments: Gen.: Well-nourished, well-developed, no acute distress, nontoxic appearing Head: Normocephalic, atraumatic. Eyes: Normal inspection bilaterally Ears: Normal inspection bilaterally Nose: Normal inspection Neck: Normal inspection Lungs: clear to auscultation bilaterally, normnal breath sounds Heart: regular rate and rhythm Abdomen: soft and non-tender Buttocks/rectal exam: Firm indurated region to the right gluteal fold that extends to the anal sphincter, on digital rectal exam there is no palpable fluctuance or induration within the anus Extremities: Left BKA Neurologic: alert and oriented x3 Skin: warm and dry Psychiatric: Normal mood and affect, no apparent delusions or hallucinations, behavior appropriate Core Measures ACS in differential dx? No CVA/TIA Diagnosis: No Sepsis Present: No Sepsis Focused Exam Completed? No (Luke SWAN,Maria Del Rosario) Progress Differential Diagnoses I considered the following diagnoses in my evaluation of the patient: [Gluteal abscess versus anorectal abscess versus sepsis] Plan of Care: Orders Procedure Date/time Status Consistent Carbohydrate 3 07/26 B Active CBC WITHOUT DIFFERENTIAL 07/26 0600 Active BASIC ELECTROLYTES PLUS BUN&CR 07/26 0600 Active Consistent Carbohydrate 1 07/25 D Complete Pathway - chart 07/25 1618 Active House Staff 07/25 1618 Active Patient Data 07/25 1559 Active ED Holding Orders 07/25 1551 Active Admit to inpatient 07/25 1551 Active Vital Signs 07/25 1551 Active Code Status 07/25 1551 Active Intake & Output 07/25 1313 Active BASIC METABOLIC PANEL 07/25 1239 Complete TRUNK AREA CULTURE 07/25 1228 Active FingerStick- Glucose 07/25 1227 Active EKG 07/25 1227 Active Add-on Test (ER Only) 07/25 1140 Active MAGNESIUM 07/25 1133 Complete BLOOD CULTURE 07/25 1119 Active LACTIC ACID 07/25 1119 Complete COMPREHENSIVE METABOLIC PANEL 07/25 1119 Complete CBC WITHOUT DIFFERENTIAL 07/25 1119 Complete VTE Mechanical Prophylaxis 07/25 UNK Active FingerStick- Glucose 07/25 UNK Active Activity/Ambulation 07/25 UNK Active Current Medications Sig/Marcellus Start time Last Medication Dose Stop Time Status Admin Heparin Sodium 5,000 UNIT Q8 07/25 1616 UNVr (Porcine) Acetaminophen 650 MG Q6PRN PRN 07/25 1615 UNVr (Tylenol) Dextrose 25 GM ONCE ONE 07/25 1615 UNVr (Dextrose 50%) 07/25 1616 Clindamycin 600 MG IQ8 07/25 1600 AC (Cleocin) Dextrose/Water 50 ML (D5W) Laboratory Tests 07/25/18 1419: Lactic Acid Cancelled 07/25/18 1248: Anion Gap 14, Estimated GFR 5 L, BUN/Creatinine Ratio 5.4 L, Glucose 211 H, Calcium 8.9 07/25/18 1139: Magnesium Cancelled 07/25/18 1133: Anion Gap 14, Estimated GFR 5 L, BUN/Creatinine Ratio 5.8 L, Glucose 213 H, Lactic Acid 0.7, Calcium 9.2, Magnesium 1.9, Total Bilirubin 0.7, AST 16, ALT 23 , Alkaline Phosphatase 133 H, Total Protein 7.3, Albumin 4.4, Globulin 2.9, Albumin/Globulin Ratio 1.5, CBC w Diff MAN DIFF ORDERED, RBC 3.12 L, MCV 95.9, MCH 32.8 H, MCHC 34.2, RDW 12.4, MPV 7.2 L, Gran % 88.8 H, Lymphocytes % 5.7 L, Monocytes % 4.8, Eosinophils % 0.6, Basophils % 0.1, Absolute Granulocytes 14.4 H, Absolute Lymphocytes 0.9 L, Absolute Monocytes 0.8 H, Absolute Eosinophils 0.1, Absolute Basophils 0, Platelet Estimate ADEQUATE, Anisocytosis 1+ Microbiology 07/25 1228 TRUNK: Culture & Sensitivity - ORD 07/25 1228 TRUNK: Gram Stain - ORD 07/25 1200 BLOOD: Blood Culture - RECD 07/25 1133 BLOOD: Blood Culture - RECD CT pelvis IMPRESSION: A 3 x 1.3 x 3.4 cm subcutaneous phlegmon at the right gluteal fold is contiguous with a tract extending to the anus, most consistent with a perianal fistula. If clinically warranted, consider follow-up MRI of the pelvis without contrast for better characterization of the fistula (likely transsphincteric or intersphincteric). Labs are remarkable for leukocytosis of 16, lactic acid is within normal limits Labs also show potassium of 6.4. Patient was last dialyzed yesterday, discussed with Dr. Syed (nephrology), given calcium gluconate and potassium was repeated to ensure that it was a real value. Repeat potassium was 6.8. EKG shows no hyperkalemic changes. Given 10 units of insulin and will plan for dialysis tonight. Discussed with Dr. Grimaldo (surgery) and there is no indication for surgical intervention at this time. She will be covered with IV antibiotics. Patient states that she must be discharged promptly at 8 AM tomorrow morning, even if she has to leave AGAINST MEDICAL ADVICE. This will allow time for 3 IV doses of clindamycin prior to discharge. Patient to be admitted to telemetry for further evaluation Initial ED EKG: normal sinus rhythm, no ST T wave changes, NO hyperkalemic changes (Maria Del Rosario Dixon) Departure Departure Disposition: STILL A PATIENT Condition: Stable Clinical Impression Primary Impression: Cellulitis Secondary Impressions: Hyperkalemia, Sepsis Referrals: Unknown (PCP/Family) Departure Forms: Customer Survey General Discharge Information Admission Note Documentation of Exam: Documentation of any treatments & extenuating circumstances including Concerns Regarding Discharge (functional status, medication knowledge or non-compliance, living conditions, etc.) that warrant an admission rather than observation: [ Hemodynamic monitoring, telemetry monitoring, dialysis, serial chemistries, nephrology consultation, IV antibiotics, blood culture follow-up] (Maria Del Rosario Dixon) Departure Comments 07/25/18 4:30 PM I have seen and personally examined the patient and I agree with the PAs evaluation. She is a 53-year-old female who presents with pain and induration to the left buttocks. CT scan does not show any definite abscess. She has significant leukocytosis. She is also significantly hyperkalemic. She had initially declined admission and was going to sign out AMA. Fortunately she is agreed to stay for several doses of IV antibiotics and dialysis. Surgical and renal consultations have been obtained. She is being admitted to the hospital for further care. Admission Note Spoke With: Lianna Snider MD Documentation of Exam: Documentation of any treatments & extenuating circumstances including Concerns Regarding Discharge (functional status, medication knowledge or non-compliance, living conditions, etc.) that warrant an admission rather than observation: (Javier Bailon DO) Critical Care Note Critical Care Note Critical Care Time: 30-74 min (Maria Del Rosario Dixon)
[2018-07-25 11:44] LABS: ABSOLUTE BASOPHIL COUNT 0 /CUMM (0.0-0.2); ABSOLUTE EOSINOPHIL COUNT 0.1 /CUMM (0.0-0.7); ABSOLUTE GRANULOCYTE CT 14.4 /CUMM (1.4-6.5); ABSOLUTE LYMPH COUNT 0.9 /CUMM (1.2-3.4); ABSOLUTE MONOCYTE COUNT 0.8 /CUMM (0.10-0.60); BASOPHIL % 0.1 % (0.0-2.0); EOSINOPHIL % 0.6 % (0-5); GRANULOCYTE % 88.8 % (42.2-75.2); HEMATOCRIT 29.9 % (37-47); MEAN CORPUSCULAR HGB 32.8 PG (27.0-31.0); MEAN CORPUSCULAR HGB CONC 34.2 G/DL (33.0-37.0); MEAN CORPUSCULAR VOLUME 95.9 FL (81.0-99.0); MEAN PLATELET VOLUME 7.2 FL (7.4-10.4); PLATELET COUNT 288 /CUMM (130-400); RBC DISTRIBUTION WIDTH 12.4 % (11.5-14.5); RED BLOOD CELL CT 3.12 /CUMM (4.20-5.40); WHITE BLOOD CELL COUNT 16.2 /CUMM (4.8-10.8)
--- NOTE | 2018-07-25 13:29 | CT SCAN REPORT ---
EXAMINATION: CT PELVIS WITH IV CONTRAST CLINICAL INFORMATION: Abscess in the right gluteal fold extending to the anal sphincter. COMPARISON: 01/17/2018 TECHNIQUE: Helical scanning was performed with submillimeter collimation through the pelvis with 95 mL of Optiray 320 intravenous contrast. Sagittal and coronal multiplanar 2-D reconstructions were obtained. DLP: 303 mGy-cm FINDINGS: Osseous structures: Bones are osteopenic. Mild osteoarthritis is present within both hips with small small marginal osteophytes. No acute osseous findings. Mild degenerative disc disease in the lower lumbar spine. Pelvic soft tissues: Imaged intrapelvic soft tissues are unremarkable aside from mild calcific atherosclerosis abdominal aorta. Bowel is normal in caliber. No intraperitoneal free fluid or free air. Appendix is normal in size. No adenopathy. The retroverted uterus and the ovaries are unremarkable. Bladder is decompressed. Within the right gluteal subcutaneous fat at the gluteal fold 5 cm from the anus, there is a 3 x 1.3 x 3.4 cm focus of soft tissue attenuation which likely corresponds to a developing phlegmon. No fluid density component is identified. As seen on image 77/140 of series 601, there is a ill-defined tract extending from this abscess to the right anterolateral aspect of the anus. The path of this fistulous tracts around the anorectal region is uncertain though the tract is not well defined around the sphincter. A fistula that is closely apposed to the sphincter (transsphincteric or intersphincteric) is most likely. Surrounding fat is edematous. No separate fistulae are identified. No adenopathy. Calcific atherosclerosis is present within the abdominal aorta and iliac arteries. IMPRESSION: A 3 x 1.3 x 3.4 cm subcutaneous phlegmon at the right gluteal fold is contiguous with a tract extending to the anus, most consistent with a perianal fistula. If clinically warranted, consider follow-up MRI of the pelvis without contrast for better characterization of the fistula (likely transsphincteric or intersphincteric).
--- NOTE | 2018-07-25 16:04 | PN- General Surgery ---
Surgical Brief Attending Note Brief Attending Note: General surgical consult was called for evaluation of suspected gluteal abscess with questionable fistula to vito-anal region. The patient is known to have ERSD and is need of dialysis today. She is also febrile and tachycardic with leukocytosis and concern for early sepsis. Phyiscal examination of gluteal fold reveals: Firm indurated region to the right gluteal fold that extends to the anal sphincter. Digital rectal exam performed by ER team revealed no area of fluctuance. CT imaging was reviewed by Dr. Contreras and no drainable fluid collection was visualized on scan, and at this time and there is no emergent need for surgical intervention. The patient will be started on a course of antibiotic therapy and we will continue to monitor for any worsening of clinical state. She will be admitted to medical service and will undergo hemodialysis tonight. She anticipates a discharge tomorrow morning by 8am and if it is not recommended by medical and/or staff, she has stated that she will sign out AMA. This plan of care has been discussed with Dr. Contreras
--- NOTE | 2018-07-25 16:41 | History & Physical ---
MicheleBrianatiya 07/25/18 1641: General Information and HPI MD Statement: I have seen and personally examined HELLEN BOWERS and documented this H&P. The patient is a 53 year old F who presented with a patient stated chief complaint of [Sepsis]. Source of Information: patient History of Present Illness: Ms. Horowitz is a 53-year-old female with a past medical history significant for diabetes mellitus type 2, end-stage renal disease on dialysis Saturday, left lower extremity amputation in December 2017 who presented to the emergency department due to an abscess on the right buttock of one-week duration. Patient states that she noticed an abscess on her right buttock for 1 week and has been doing more, warm compresses which have not been helping, patient states she has noticed no change in size of the abscess, has not noticed any discharge, denies taking any antibiotics for the abscess. Patient denies fever, night sweats, chills, recent travel, sick contacts. While in the emergency department patient was found to have EKG changes which showed peaked T waves, on's BEP patient was found to have potassium level of 6.4. Patient denies symptoms of chest pain, palpitations, tingling or numbness, weakness. Of note in patient's history, patient states she was in the hospital in [place] approximately 3 years ago where she was treated for bilateral pneumonia and subsequently developed end-stage renal disease during the hospitalization. Patient states she was started on dialysis following that hospitalization, because of end-stage renal disease is unknown. Patient underwent left lower extremity amputation approximately 7 months ago at [facility]. Patient states she had multiple fractures in her left foot which went undiagnosed for quite some time until her left talus disintegrated requiring an amputation. ED vitals: Temperature 100.8, pulse rate 101, respiratory rate 18, blood pressure 147/67, O2 saturation 98% on room air. ED labs: White blood cell count 16.2, H/H 10.2, 29.9. Potassium 6.4, creatinine 7.8, GFR 5.0, glucose [address] on 07/25/2018IMPRESSION: A 3 x 1.3 x 3.4 cm subcutaneous phlegmon at the right gluteal fold is contiguous with a tract extending to the anus, most consistent with a perianal fistula. Allergies/Medications Allergies: Coded Allergies: No Known Allergies (01/17/18) Home Med list Diltiazem HCl (Diltiazem 24HR ER) 180 MG CAP.ER.24H 1 CAP PO BID HYPERTENSION (Reported) Furosemide (Lasix) 80 MG TABLET 1 TAB PO Saturday DIURETIC (Reported ) Furosemide (Lasix) 80 MG TABLET 1 TAB PO SATURDAY esrd (Reported) Hydralazine HCl 50 MG TABLET 1 TAB PO BID Hypertension (Reported) Insulin Degludec (Tresiba Flextouch U-100) 100 UNIT/ML (3 ML) INSULN.PEN 22 UNITS SC DAILY DM (Reported) Insulin Glulisine (Apidra Solostar) 100 UNIT/ML INSULN.PEN 0 SC DAILY DM ( Reported) Sugar Insulin 80-150 4 151-200 5 201-250 6 251-300 7 301-350 8 351-400 9 > 400 9 + Call Losartan Potassium (Cozaar) 50 MG TABLET 1 TAB PO BID BP (Reported) Pantoprazole Sodium (Protonix) 40 MG TABLET.DR 1 TAB PO DAILY GI (Reported) Vit B Cmplx 3/FA/Vit C/Biotin (Slat Basket Top Maker-Charlotte Rx Tablet) 1 MG-60 MG-300 MCG TABLET 1 TAB PO DAILY SUPPLEMENT (Reported) Compliance With Home Meds: POOR Past History Travel History Traveled to [place] past 21 day No Medical History Neurological: NONE EENT: NONE Cardiovascular: hypertension Respiratory: NONE Gastrointestinal: NONE Hepatic: NONE Renal: ESRD on HD Musculoskeletal: Left BKA Psychiatric: NONE Endocrine: diabetes History of MRSA: No History of VRE: No History of CDIFF: No Surgical History Surgical History: none (LLE amputation), unobtainable Past Family/Social History Employment History Employment Employed Profession/Employer Physical Therapist @ [employer] Review of Systems Review of Systems Constitutional: Denies: chills, diaphoresis, fever, malaise. EENTM: Denies: visual changes, hearing changes, throat pain. Cardiovascular: Denies: chest pain, palpitations. Respiratory: Denies: cough, short of breath. GI: Denies: abdominal pain, constipation, diarrhea, bloody stool. Genitourinary: Denies: dysuria, frequency, hematuria. Neurological/Psychological: Denies: confusion, headache, numbness, tingling. Exam & Diagnostic Data Last 24 Hrs of Vital Signs/I&O Vital Signs Date Time Temp Pulse Resp B/P B/P Pulse O2 O2 Flow FiO2 Mean Ox Delivery Rate 07/25 1557 98.8 80 15 141/65 98 Room Air 07/25 1300 98.5 84 16 114/56 95 Room Air 07/25 1121 100.8 07/25 1118 100.8 101 18 147/67 98 Room Air Intake & Output 07/25 1600 07/25 0800 07/25 0000 Intake Total 250 Output Total Balance 250 Intake, IV 250 Patient 155 lb Weight Weight Reported by Patient Measurement Method Physical Exam General Appearance Alert, Oriented X3, Cooperative Skin No Rashes HEENT Atraumatic, PERRLA, EOMI Neck Supple, No LAD Cardiovascular Regular Rate, Normal S1, Normal S2, Systolic 2/6 Murmur Lungs Clear to Auscultation, Normal Air Movement Abdomen Normal Bowel Sounds, Soft, No Tenderness Neurological Normal Speech, Sensation Intact, Cranial Nerves 3-12 NL, Stregth 5/ 5 X3 extremities Extremities No Cyanosis, No Edema Sepsis Peripheral Pulse Location: Dorsalis Pedis Sepsis Peripheral Pulse Exam: Normal Sepsis Cap Refill Exam: <2 Sec Rectal Firm indurated region to the right gluteal fold that extends to the anal sphincter. WALLY performed by ER team revealed no area of fluctuance. Last 24 Hrs of Labs/Pedro: Laboratory Tests 07/25/18 1419: Lactic Acid Cancelled 07/25/18 1248: Anion Gap 14, Estimated GFR 5 L, BUN/Creatinine Ratio 5.4 L, Glucose 211 H, Calcium 8.9 07/25/18 1139: Magnesium Cancelled 07/25/18 1133: Anion Gap 14, Estimated GFR 5 L, BUN/Creatinine Ratio 5.8 L, Glucose 213 H, Lactic Acid 0.7, Calcium 9.2, Magnesium 1.9, Total Bilirubin 0.7, AST 16, ALT 23 , Alkaline Phosphatase 133 H, Total Protein 7.3, Albumin 4.4, Globulin 2.9, Albumin/Globulin Ratio 1.5, CBC w Diff MAN DIFF ORDERED, RBC 3.12 L, MCV 95.9, MCH 32.8 H, MCHC 34.2, RDW 12.4, MPV 7.2 L, Gran % 88.8 H, Lymphocytes % 5.7 L, Monocytes % 4.8, Eosinophils % 0.6, Basophils % 0.1, Absolute Granulocytes 14.4 H, Absolute Lymphocytes 0.9 L, Absolute Monocytes 0.8 H, Absolute Eosinophils 0.1, Absolute Basophils 0, Platelet Estimate ADEQUATE, Anisocytosis 1+ Microbiology 07/25 1228 TRUNK: Culture & Sensitivity - ORD 07/25 1228 TRUNK: Gram Stain - ORD 07/25 1200 BLOOD: Blood Culture - RECD 07/25 1133 BLOOD: Blood Culture - RECD Diagnostic Data EKG Results EKG in ED showed Peaked T-waves Assessment/Plan Assessment: Ms. Horowitz is a 53-year-old female with a past medical history significant for diabetes mellitus type 2, end-stage renal disease on dialysis Saturday, left lower extremity amputation in December 2017 who presented to the emergency department due to an abscess on the right buttock of one-week duration. Patient states that she noticed an abscess on her right buttock for 1 week and has been doing more, warm compresses which have not been helping, patient states she has noticed no change in size of the abscess, has not noticed any discharge, denies taking any antibiotics for the abscess. Patient denies fever, night sweats, chills, recent travel, sick contacts. Problem List: 1. Sepsis secondary to right buttock abscess 2. Right buttock abscess 3. Hyperkalemia secondary to end-stage renal disease 4. End-stage renal disease on dialysis 5. Diabetes mellitus type 2 6. Hypertension 7. GERD #Sepsis secondary to right buttock abscess: Clinically patient does look stable, however she meets SIRS criteria with temperature of 100.8, heart rate 101, white blood cell count 16.2. Causative agent is most likely gram-negative bacteria, possibly mixed marcelino. Pelvic CT on 07/25/2018 shows there is a 3 x 1.3 x 3.4 cm focus of small tissue attenuation which likely corresponds to developing phlegmon. -continue IV Clindamycin -Patient recieved one dose of IV Flagyl and Ceftriaxone in ED 07/25/18 -Patient has been evaluated by Surgery- there is no draibale fluid collection, there is no emergent need for surgical intervention. #Right buttock abscess -continue IV Clindamycin -Patient recieved one dose of IV Flagyl and Ceftriaxone in ED 07/25/18 -Patient has been evaluated by Surgery- there is no draibale fluid collection, there is no emergent need for surgical intervention. -will consult ID in morning to determine antibiotics to send patient home with. It will be difficult to obtain culture since there will be no I&D. Patient has stated that she expects to be discharged at 8 AM in the morning, [place] and w would like to be either discharged or will walk out AMA. #Hyperkalemia: Patient has history of end-stage renal disease, states she had went to dialysis yesterday and potassium was five-point something which is down from a previously higher number which patient does not recall. On admission potassium was 6.4, patient did not have cardiac symptoms or neurological symptoms. dextrose in the emergency department #End-stage renal disease: Patient is followed by Dr. Mancuso for Dialysis on . -Dialyze patient today -Continue epoetin Jonathan 2000 units #DMII: -Novolong sliding scale -insulin glargine 14 units at night -accu-checks #Hypertension -Continue Losartan 50mg BID -Hydralazine 50mg BID -Diltiazem 180mg BID #GERD -Omeprazole 40mg DVT PPx: Alps and sQ heparin Code Status: Full code Diet: Regular As Ranked By This Provider Problem List: 1. Sepsis Core Measures/Misc (08/18) Acute Coronary Syndrome ACS Diagnosis: No Congestive Heart Failure Congestive Heart Failure Diagnosis No Cerebrovascular Accident CVA/TIA Diagnosis: No VTE (View Protocol) VTE Risk Factors Age>40 No Mechanical VTE Prophylaxis d/t N/A MechProphylax Ordered No VTE Pharm Prophylaxis d/t NA PharmProphylax ordered Sepsis (View protocol) Sepsis Present: Yes If YES complete Sepsis Event Note If YES complete Sepsis Event Note Isha Niño MD 07/25/18 1642: Core Measures/Misc (08/18) Sepsis (View protocol) If YES complete Sepsis Event Note If YES complete Sepsis Event Note Resident Review Statement Resident Statement: examined this patient, discussed with recruiting internship, agreed with recruiting internship, reviewed EMR data (avail), discussed with nursing, reviewed images Other Findings: 52-year-old woman with past medical history of insulin-dependent diabetes mellitus, peripheral vascular disease status post left lower knee amputation(7 months ago), end-stage renal disease on hemodialysis(since 2014) presents with a buttock abscess. Patient noticed the abscess a week ago and has been applying warm compresses without any relief. She denies any fever/chills, night sweats or any drainage. Also her blood sugars are usually well controlled and she has never had any abscesses in the past. Denies any trauma or insect bites. Patient follows up with Dr. Lobo and did receive her dialysis yesterday. She gets the blood workup done every month. She does not remember the exact potassium level but states that it was borderline(around 5.9). Vitals on admission were Temp 100.8, HR 101, RR 18, BP 149/67, O2 98% on room air. Labs were significant for WBC count of 16.2 without bandemia, potassium 6.4, creatinine 7.8, GFR 5 L, blood glucose 213 and alkaline phosphatase 133. EKG did not show any signisficant ST-Twave changes CT scan showed A 3 x 1.3 x 3.4 cm subcutaneous phlegmon at the right gluteal fold is contiguous with a tract extending to the anus, most consistent with a perianal fistula. Problem List; 1. Sepsis 2/2 to gluteal abscess(elevated WBC count, tacycardia), but clinically stable, did not require aggressive hydration. 2. Hyperkalemia likely from ESRD 3. ESRD on dialysis (sheree, yash, Sat) 4. IDDM. -Admit the patient to Telemetry floor. -Patient was already given 1 dose of IV calcium gluconate, 10 units regular insulin with 12.5 g dextrose push for hyperkalemia, patient undergoing urgent dialysis now. Repeat K after the dialysis. - Nephrology Consult. - Continue dialysis (pratikjermain, sat). -Surgical consult was placed for drainage of gluteal abscess. Concern for perineal fistula but no drainable fluid collection was visualized on scan, and at this time there is no emergent need for surgical intervention. -She is started on IV clindamycin in the ER, will continue. - Blood Cx x 2 -Continue insulin glargine, 14 units at night, NovoLog sliding scale and Accu- Cheks. -Continue other home medications. - Patients wants to leave in am, made aware of the risks of hyperkalemia but wants to be discharged home with oral kayaxalate if K is still high in am. DVT prophylaxis; alps and subcu heparin Patient is full code Tylor,Lianna 07/25/18 1647: Core Measures/Misc (08/18) Sepsis (View protocol) If YES complete Sepsis Event Note If YES complete Sepsis Event Note Attending MD Review Statement Attending Statement Attending MD Statement: examined this patient, discuss w/resident/PA/OFFICE HELPER, agreed w/resident/PA/OFFICE HELPER, discussed with family, reviewed EMR data (avail), discussed with nursing, discussed with case mgmt, reviewed images, amended to note Attending Assessment/Plan: 53 o/f with pmh of IDDM, ESRD on dialysis and pmh as above comes with vito-anal fistula and phlegomonous presentation on imaging is being admitted to telemetry. She is started on iv antibitoics, panculture. Obtain ID consult. Also found to have hyperkalemia K 6.8. She is being treated for hyperkalemia with insulin, dextrose and calclium gluconate. General surgery and nephrology called in ER. General surgery without acute surgical intervention and dialysis plan as per nephrology. Avoid kayexalate. If hyperkalemia persists or refractory to treat then would need emergent dialysis. gi/dvt prophyalxis full code
--- NOTE | 2018-07-25 17:00 | Cons- Nephrology ---
General Information and HPI Consulting Request Date of Consult: 07/25/18 Requested By: Lianna Snider MD Reason for Consult: Hyperkalemia History of Present Illness: 53 yo female with ESRD due to DM, peripheral vascular disease who came to ED because of gluteal abscess. There is concern this may be extending into rectum. She was dialyzed yesterday but has been eating more fruit, especially peaches with the skin on. Her potassium in the ED was 6.4, repeated at 6.8. FH: negative for kidney disease Allergies/Medications Allergies: Coded Allergies: No Known Allergies (01/17/18) Home Med List: Diltiazem HCl (Diltiazem 24HR ER) 180 MG CAP.ER.24H 1 CAP PO BID HYPERTENSION (Reported) Furosemide (Lasix) 80 MG TABLET 1 TAB PO DIURETIC (Reported) Hydralazine HCl 50 MG TABLET 1 TAB PO BID Hypertension (Reported) Insulin Degludec (Tresiba Flextouch U-100) 100 UNIT/ML (3 ML) INSULN.PEN 22 UNITS SC DAILY DM (Reported) Insulin Glulisine (Apidra Solostar) 100 UNIT/ML INSULN.PEN 70 UNITS SC DAILY DM (Reported) Sugar Insulin 80-150 4 151-200 5 201-250 6 251-300 7 301-350 8 351-400 9 > 400 9 + Call Losartan Potassium (Cozaar) 50 MG TABLET 1 TAB PO BID BP (Reported) Pantoprazole Sodium (Protonix) 40 MG TABLET.DR 1 TAB PO DAILY GI (Reported) Vit B Cmplx 3/FA/Vit C/Biotin (Multigraph Operator-[facility]otte Rx Tablet) 1 MG-60 MG-300 MCG TABLET 1 TAB PO DAILY SUPPLEMENT (Reported) Current Medications: Current Medications Sig/Marcellus Start time Last Medication Dose Route Stop Time Status Admin Acetaminophen 650 MG Q6PRN PRN 07/25 1615 AC PO Acetaminophen 975 MG ONCE ONE 07/25 1130 DC 07/25 PO 07/25 1131 1121 Calcium Gluconate 0 .STK-MED ONE 07/25 1243 DC IV Calcium Gluconate 1 GM ONCE ONE 07/25 1230 DC 07/25 Sodium Chloride 100 ML IV 07/25 1329 1310 Ceftriaxone Sodium 0 .STK-MED ONE 07/25 1426 DC .ROUTE Ceftriaxone Sodium 1,000 MG ONCE ONE 07/25 1400 DC 07/25 IV 07/25 1401 1448 Clindamycin 600 MG IQ8 07/25 1600 AC Dextrose/Water 50 ML IV Dextrose 25 GM ONCE ONE 07/25 1615 DC IV 07/25 1616 Dextrose 12.5 GM ONCE ONE 07/25 1230 DC 07/25 IV 07/25 1231 1446 Epoetin Jonathan 2,000 UNIT MoWeFr PRN 07/25 1645 AC IV Heparin Sodium 5,000 UNIT Q8 07/25 1616 AC (Porcine) SC Insulin Human Regular 10 UNITS ONCE ONE 07/25 1230 DC 07/25 IV 07/25 1231 1503 Metronidazole 500 MG ONCE ONE 07/25 1400 DC 07/25 N/A 1 UNIT IV 07/25 1459 1456 Review of Systems Review of Systems: Negative except as noted above. Past History Travel History Traveled to [place] past 21 day No Medical History Neurological: NONE EENT: NONE Cardiovascular: hypertension Respiratory: NONE Gastrointestinal: NONE Hepatic: NONE Renal: ESRD on HD Musculoskeletal: Left BKA Psychiatric: NONE Endocrine: diabetes Surgical History Surgical History: AVF Psychosocial History Smoking Status: Never Smoked ETOH Use: denies use Exam & Diagnostic Data Vital Signs and I&O Vital Signs Date Time Temp Pulse Resp B/P B/P Pulse O2 O2 Flow FiO2 Mean Ox Delivery Rate 07/25 1557 98.8 80 15 141/65 98 Room Air 07/25 1300 98.5 84 16 114/56 95 Room Air 07/25 1121 100.8 07/25 1118 100.8 101 18 147/67 98 Room Air Intake & Output 07/25 1600 07/25 0400 07/24 1600 07/24 0400 07/23 1600 07/23 0400 Intake Total 250 Output Total Balance 250 Intake, IV 250 Patient 155 lb Weight Weight Reported by Patient Measurement Method Physical Exam: NAD VS as above Eyes: anicteric, PERRLA Neck: no mass or thyromegaly Nodes: negative cervical/inguinal Skin: no rash or induration Lungs: clear P&A CV: no rub or murmur Abd: nontender, no organomegaly, BS positive. Exts: no edema, bruit ANJELICA AVF Neuro: A&O, CN intact, no asterixis. Results Pertinent Lab Results: Laboratory Tests 07/25 07/25 07/25 1419 1248 1139 Chemistry Sodium (137 - 145 mmol/L) 134 L Potassium (3.5 - 5.1 mmol/L) 6.8 *H Chloride (98 - 107 mmol/L) 97 L Carbon Dioxide (22 - 30 mmol/L) 23 Anion Gap (5 - 16) 14 BUN (7 - 17 mg/dL) 43 H Creatinine (0.5 - 1.0 mg/dL) 7.9 *H Estimated GFR (>60 ml/min) 5 L BUN/Creatinine Ratio (7 - 25 %) 5.4 L Glucose (65 - 99 mg/dL) 211 H Lactic Acid Cancelled Calcium (8.4 - 10.2 mg/dL) 8.9 Magnesium Cancelled 07/25 1133 Chemistry Sodium (137 - 145 mmol/L) 134 L Potassium (3.5 - 5.1 mmol/L) 6.4 *H Chloride (98 - 107 mmol/L) 97 L Carbon Dioxide (22 - 30 mmol/L) 24 Anion Gap (5 - 16) 14 BUN (7 - 17 mg/dL) 45 H Creatinine (0.5 - 1.0 mg/dL) 7.8 *H Estimated GFR (>60 ml/min) 5 L BUN/Creatinine Ratio (7 - 25 %) 5.8 L Glucose (65 - 99 mg/dL) 213 H Lactic Acid (0.7 - 2.1 mmol/L) 0.7 Calcium (8.4 - 10.2 mg/dL) 9.2 Magnesium (1.6 - 2.3 mg/dL) 1.9 Total Bilirubin (0.2 - 1.3 mg/dL) 0.7 AST (14 - 36 U/L) 16 ALT (9 - 52 U/L) 23 Alkaline Phosphatase (<127 U/L) 133 H Total Protein (6.3 - 8.2 g/dL) 7.3 Albumin (3.5 - 5.0 g/dL) 4.4 Globulin (1.9 - 4.2 gm/dL) 2.9 Albumin/Globulin Ratio (1.1 - 2.2 %) 1.5 Hematology CBC w Diff MAN DIFF ORDERED WBC (4.8 - 10.8 /CUMM) 16.2 H RBC (4.20 - 5.40 /CUMM) 3.12 L Hgb (12.0 - 16.0 G/DL) 10.2 L Hct (37 - 47 %) 29.9 L MCV (81.0 - 99.0 FL) 95.9 MCH (27.0 - 31.0 PG) 32.8 H MCHC (33.0 - 37.0 G/DL) 34.2 RDW (11.5 - 14.5 %) 12.4 Plt Count (130 - 400 /CUMM) 288 MPV (7.4 - 10.4 FL) 7.2 L Gran % (42.2 - 75.2 %) 88.8 H Lymphocytes % (20.5 - 51.1 %) 5.7 L Monocytes % (1.7 - 9.3 %) 4.8 Eosinophils % (0 - 5 %) 0.6 Basophils % (0.0 - 2.0 %) 0.1 Absolute Granulocytes (1.4 - 6.5 /CUMM) 14.4 H Absolute Lymphocytes (1.2 - 3.4 /CUMM) 0.9 L Absolute Monocytes (0.10 - 0.60 /CUMM) 0.8 H Absolute Eosinophils (0.0 - 0.7 /CUMM) 0.1 Absolute Basophils (0.0 - 0.2 /CUMM) 0 Platelet Estimate (ADEQUATE) ADEQUATE Anisocytosis 1+ Assessment/Plan Assessment/Recommendations Assessment: Hyperkalemia due to dietary indiscretion. She originally refused to stay in the hospital but now is agreeable, but wants to leave at 8 AM to go on vacation, regardless of state of her infection. She will also miss her dialysis tomorrow. Discussed consequences of high potassium and undertreated infection in detail with patient. Recommendations: Dialysis underway with 1 k bath. UF 3 liters. She states she is leaving in AM so next treatment won't be unti 07-29 as outpatient. Counselled her on high potassium foods, fluid restriction.
[2018-07-25] MEDS ORDERED: LASIX80 M1 PO (17:59)
--- NOTE | 2018-07-25 19:03 | Sepsis Event Note ---
Sepsis Event Note Severe Sepsis Severe Sepsis Present: No Septic Shock Septic Shock Present: No Event Note Event Note: 53-year-old female came to the medical emergency department due to right buttock abscess. In emergency found to have temperature of 100.8, heart rate 101, white blood cell count 16.2. Patient clinically appears stable. Sepsis Focused Exam Sepsis Cardiac Exam: Regular Rate/Rhythm Sepsis Resp Exam: CTA Sepsis Cap Refill Exam: <2 Sec Sepsis Peripheral Pulse Exam: Normal Sepsis Peripheral Pulse Location: Dorsalis Pedis Sepsis Skin Exam (color): Normal for Ethnicity Skin Temp/Moisture Exam: Warm/Dry
[2018-07-25 21:48] VITALS: BP 130/54
[2018-07-26 06:21] LABS: ABSOLUTE BASOPHIL COUNT 0 /CUMM (0.0-0.2); ABSOLUTE EOSINOPHIL COUNT 0.1 /CUMM (0.0-0.7); ABSOLUTE GRANULOCYTE CT 9.8 /CUMM (1.4-6.5); ABSOLUTE LYMPH COUNT 0.9 /CUMM (1.2-3.4); ABSOLUTE MONOCYTE COUNT 0.6 /CUMM (0.10-0.60); BASOPHIL % 0.3 % (0.0-2.0); EOSINOPHIL % 0.8 % (0-5); GRANULOCYTE % 85.4 % (42.2-75.2); HEMATOCRIT 31.4 % (37-47); MEAN CORPUSCULAR HGB 32.4 PG (27.0-31.0); MEAN CORPUSCULAR HGB CONC 33.6 G/DL (33.0-37.0); MEAN CORPUSCULAR VOLUME 96.5 FL (81.0-99.0); PLATELET COUNT 284 /CUMM (130-400); RBC DISTRIBUTION WIDTH 12.7 % (11.5-14.5); RED BLOOD CELL CT 3.25 /CUMM (4.20-5.40); WHITE BLOOD CELL COUNT 11.5 /CUMM (4.8-10.8)
[2018-07-26 06:48] VITALS: BP 110/57
[2018-07-26 07:50] VITALS: BP 110/57
[2018-07-26] MEDS ORDERED: AUGMENTIN 500-1 EACH PO ×2 (08:49→08:50)
--- NOTE | 2018-07-26 08:49 | PN- Att Addend ---
Attending Addendum Attending Brief Note Was notified by nursing staff immediately go to the floor this morning that patient is very adamant on leaving the hospital this morning. She reports that she has occasional plans and has been intentionally seen in the hospital any longer. Patient seen and examined. No issues overnight reported by nursing staff. Remains afebrile and hemodynamically stable. Resting comfortably and not in any acute distress. She reports feeling better. She reports that the discomfort in the gluteal region has improved significantly since hospitalization. She denies need for analgesic therapy. Review of laboratory data leukocytosis has improved significantly overnight. She was febrile last night was so far is afebrile this morning. She was also hyperkalemic on presentation. This has improved following hemodialysis yesterday. I did have an extended conversation with the patient. I did discuss that it would be more prudent to keep her in the hospital and continue intravenous antibiotic therapy to ensure that her perianal abscess heals adequately. I did discuss with her complications which include formation of fistula, questionable sepsis, organ damage and even . She verbalized understanding will remain adamant on leaving the hospital AGAINST MEDICAL ADVICE. In view of this we will prescribe the patient oral Augmentin 500 mg daily to take for 10 days. She will leave the hospital AGAINST MEDICAL ADVICE. She has been advised to follow-up with her primary care provider next week. She however feels that she does not need to see her primary care provider I would rather come back to the emergency room to be evaluated. I did explain that her primary care provider could examine her and obtain pertinent blood work however she has no intention to see him. I did advise her to return to the emergency room should she develop fever, chills, worsening discomfort or drainage.
--- NOTE | 2018-07-26 08:56 | Patient Discharge Instructions ---
Discharge Instructions General Discharge Information You were seen/treated for: Hyperglycemia AMS R buttock abscess Hyperkalemia Watch for these problems: If you have any fever, dizziness, changes in vision, palpitations, sweating, or any symptoms infection, high blood glucose, or cardiac arrhythmia please come to ED immediately. Special Instructions: Please follow up with PCP in one week of leaving hospital. Please take the medication as advised. He started on antibiotic if he started having diarrhea please call back to your PCP or come back to ED. Diet Recommended Diet: Diabetic Acute Coronary Syndrome Inclusion Criteria At DC or during hospital stay patient has or had the following: ACS DIAGNOSIS No Discharge Core Measures Meds if any: Prescribed or Continued at Discharge Meds if any: NOT Prescribed or Continued at Discharge Congestive Heart Failure Inclusion Criteria At DC or during hospital stay patient has or had the following: CHF DIAGNOSIS No Discharge Core Measures Meds if any: Prescribed or Continued at Discharge Meds if any: NOT Prescribed or Continued at Discharge Cerebrovascular accident Inclusion Criteria At DC or during hospital stay patient has or had the following: CVA/TIA Diagnosis No Discharge Core Measures Meds if any: Prescribed or Continued at Discharge Meds if any: NOT Prescribed or Continued at Discharge Venous thromboembolism Inclusion Criteria VTE Diagnosis No VTE Type NONE VTE Confirmed by (Test) NONE Discharge Core Measures - Per Current guidelines, there needs to be overlap - treatment for the first 5 days of Warfarin therapy. - If discharged on Warfarin prior to 5 days of - overlap therapy, the patient will need to be - assessed for post discharge needs including - *Post discharge parental anticoagulation - *Warfarin and/or parental anticoagulation education - *Follow up date to check INR post discharge At least 5 days overlap therapy as Inpatient No Meds if any: Prescribed or Continued at Discharge Note: Overlap Therapy is Warfarin and Anticoagulant Meds if any: NOT Prescribed or Continued at Discharge
== END 2018-07-26 10:25 | disposition left against medical advice (07) | DRG 602 ==
LOC: ERH 11:15 → ERHI 15:51 → ENRESERV 16:11 → 1NO 16:47 → ENPENDDIS 07-26 09:08 → 1NO 07-26 10:25
PROVIDERS: Internal Medicine; Physician Assistant Medical
PROC: 5A1D70Z Performance of Urinary Filtration, Intermittent, Less than 6 Hours Per Day (ICD-10-PCS; principal; 2018-07-25)
DX: L02.31 Cutaneous abscess of buttock (principal); N18.6 End stage renal disease; E11.51 Type 2 diabetes mellitus with diabetic peripheral angiopathy without gangrene; E11.22 Type 2 diabetes mellitus with diabetic chronic kidney disease; E87.5 Hyperkalemia; K21.9 Gastro-esophageal reflux disease without esophagitis; Z99.2 Dependence on renal dialysis; Z89.512 Acquired absence of left leg below knee; Z79.4 Long term (current) use of insulin
CPT/HCPCS: 1NP; 36415; 36592; 82436; 87040; 87070; 93005; 93010; 96374; 96375; 99291; J0610; J0696; J0885; J1644